=== PATIENT | female | born 1980 | race Caucasian/White ===

== ENCOUNTER 2016-08-09 14:39 | Emergency (ER) | payer BC ==
[2016-08-09 15:03] VITALS: TEMP 98.7
[2016-08-09] MEDS ORDERED: IPRATROPIUM-ALBUTEROL 3 ML NEB INHALATION STA (15:25)
[2016-08-09] MEDS ORDERED: RX INFO: IV CONTRAST WAS GIVEN 1 EACH MISC MISCELLANE PRN (15:26)
--- NOTE | 2016-08-09 15:36 | ED ---
SOB HPI - General Source: patient, RN notes reviewed Mode of arrival: ambulatory Limitations: no limitations - History of Present Illness MD Complaint: shortness of breath <Antoni Bae - Last Filed: 08/09/16 16:57> <Jesse Mina - Last Filed: 08/09/16 19:13> - General Chief Complaint: Shortness of Breath Stated Complaint: Diff Breathing Time Seen by Provider: 08/09/16 15:10 - History of Present Illness Initial Comments: This is a 35-year-old female history of stage IV melanoma who presents with complaints of 3 days of worsening shortness of breath exertional dyspnea. 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 She denies any fevers chills or sweats complains severe dyspnea especially with exertion. She was seen in outpatient clinic was noted to have elevated d-dimer x-ray apparently was negative for acute findings however. The plan had been to schedule patient for ultrasound of her legs she does complain some pain to the left leg she has had phlebitis in the past and believes she has the same today. Of note the patient is a former smoker was quit seven years ago (Antoni Bae) - Related Data Home Medications Medication Instructions Recorded Confirmed Citalopram Hydrobromide [CeleXA] 20 mg PO DAILY 06/09/16 08/09/16 Loratadine [Claritin] 10 mg PO DAILY 06/09/16 08/09/16 Albuterol Sulfate [Proair Hfa] 2 puff INHALATION RT-Q6H PRN 08/09/16 08/09/16 Amoxicillin/Potassium Clav 1 tab PO Q12HR 08/09/16 08/09/16 [Augmentin 875-125 Tablet] Omeprazole [PriLOSEC] 40 mg PO DAILY 08/09/16 08/09/16 Sulfamethox-Tmp 800-160Mg [Bactrim 1 tab PO MOWEFR 08/09/16 08/09/16 DS 800-160 mg] predniSONE 20 mg PO DAILY 08/09/16 08/09/16 Allergies Allergy/AdvReac Type Severity Reaction Status Date / Time fluoxetine [From Prozac] Allergy Rash/Hives Verified 08/09/16 15:17 Review of Systems ROS Other: All systems not noted in ROS Statement are negative. <Antoni Bae - Last Filed: 08/09/16 16:57> ROS Other: All systems not noted in ROS Statement are negative. <Jesse Mina - Last Filed: 08/09/16 19:13> ROS Statement: Those systems with pertinent positive or pertinent negative responses have been documented in the HPI. Past Medical History Past Medical History: Cancer Additional Past Medical History / Comment(s): gestational diabetes x 2 Pregnancies , Umbilical Hernia, stage 4 melanoma History of Any Multi-Drug Resistant Organisms: MRSA Date of last positivie culture/infection: 2007, 2010 MDRO Source:: hernia surgery, breast abscess Past Surgical History: Section, Hernia Repair Additional Past Surgical History / Comment(s): umbilical hernia repair,mesh later removed d/t infection and hernia repaired again at that time. Past Anesthesia/Blood Transfusion Reactions: No Reported Reaction, Motion Sickness Past Psychological History: Depression Smoking Status: Former smoker Past Alcohol Use History: Rare Additional Past Alcohol Use History / Comment(s): quit smoking 2009 , smoked approx 15 yrs, Smoked 1 ppd. Past Drug Use History: None Reported - Past Family History Mother Family Medical History: No Reported History Additional Family Medical History / Comment(s): mother suffers from depression Father History Unknown: Yes Family Medical History: Myocardial Infarction ([place]) Additional Family Medical History / Comment(s): biological father had alcoholism and of a heart attack at age 61 <Antoni Bae - Last Filed: 08/09/16 16:57> General Exam Limitations: no limitations General appearance: alert, in no apparent distress Head exam: Present: atraumatic, normocephalic, normal inspection Eye exam: Present: normal appearance, PERRL, EOMI. Absent: scleral icterus, conjunctival injection, periorbital swelling ENT exam: Present: normal exam, mucous membranes moist Neck exam: Present: normal inspection. Absent: tenderness, meningismus, lymphadenopathy Respiratory exam: Present: decreased breath sounds. Absent: respiratory distress, wheezes, rales, rhonchi, stridor Cardiovascular Exam: Present: regular rate, normal rhythm, normal heart sounds. Absent: systolic murmur, diastolic murmur, rubs, gallop, clicks GI/Abdominal exam: Present: soft, normal bowel sounds, other (Obese abdomen). Absent: distended, tenderness, guarding, rebound, rigid Extremities exam: Present: normal inspection, full ROM, normal capillary refill. 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 Absent: rash <Antoni Bae - Last Filed: 08/09/16 16:57> <Jesse Mina - Last Filed: 08/09/16 19:13> - General Exam Comments Initial Comments: Is a well-developed obese female awake alert oriented 3. (Antoni Bae) Course <Antoni Bae - Last Filed: 08/09/16 16:57> <Jesse Mina - Last Filed: 08/09/16 19:13> Vital Signs 08/09/16 08/09/16 08/09/16 15:00 15:42 15:49 Temperature 98.7 F Pulse Rate 84 82 82 Respiratory 26 H Rate Blood Pressure 159/99 O2 Sat by Pulse 94 L Oximetry 08/09/16 18:36 Temperature Pulse Rate 99 Respiratory 16 Rate Blood Pressure 175/99 O2 Sat by Pulse 92 L Oximetry - Reevaluation(s) Reevaluation #1: 08/09/16 16:57 The patient is in the process of the ultrasound results and CAT scan. The d- dimer was elevated. I did discuss the case with her patient will be endorsed to Dr. Mina who will make the final disposition (Antoni Bae) Medical Decision Making - Lab Data Result diagrams: 08/09/16 15:51 08/09/16 15:51 - EKG Data -: EKG Interpreted by Me EKG shows normal: sinus rhythm (EKG shows sinus rhythm with occasional PVCs rate was 99 appear of 140 QRS of 90 QT/QTC 360/462 no acute changes otherwise.) <Antoni Bae - Last Filed: 08/09/16 16:57> - Lab Data Result diagrams: 08/09/16 15:51 08/09/16 15:51 <Jesse Mina - Last Filed: 08/09/16 19:13> - Medical Decision Making This is a 35-year-old female who presented for shortness of breath. She has a history of malignant melanoma on immunosuppressive therapy. CTA was negative for PE. Dopplers were negative for DVT. The patient was ambulating to and from the bathroom on her own without any significant shortness of breath. She did get some updrafts here and she felt improved. I gave the patient the option to stay in the hospital for further pulmonary evaluation however she stated that she would prefer to go home and follow-up with her doctor. She does have steroids and albuterol at home. I told to continue with these. If she has worsening symptoms she needs return emergency Department. All questions were answered. (Jesse Mina) - Lab Data Lab Results 08/09/16 08/09/16 08/09/16 Range/Units 15:51 15:51 15:51 WBC 11.6 H (3.8-10.6) k/uL RBC 4.24 (3.80-5.40) m/uL Hgb 13.3 (11.4-16.0) gm/dL Hct 39.8 (34.0-46.0) % MCV 93.8 (80.0-100.0) fL MCH 31.4 (25.0-35.0) pg MCHC 33.5 (31.0-37.0) g/dL RDW 16.9 H (11.5-15.5) % Plt Count 154 (150-450) k/uL Neutrophils % 80 % Lymphocytes % 13 % Monocytes % 5 % Eosinophils % 0 % Basophils % 0 % Neutrophils # 9.2 H (1.3-7.7) k/uL Lymphocytes # 1.5 (1.0-4.8) k/uL Monocytes # 0.6 (0-1.0) k/uL Eosinophils # 0.0 (0-0.7) k/uL Basophils # 0.0 (0-0.2) k/uL Anisocytosis Slight PT (9.0-12.0) sec INR (<1.1) APTT (22.0-30.0) sec D-Dimer (<0.60) mg/L FEU Sodium 142 (137-145) mmol/L Potassium 3.9 (3.5-5.1) mmol/L Chloride 105 (98-107) mmol/L Carbon Dioxide 28 (22-30) mmol/L Anion Gap 9 mmol/L BUN 17 (7-17) mg/dL Creatinine 0.60 (0.52-1.04) mg/dL Est GFR (MDRD) Af Amer >60 (>60 ml/min/1.73 sqM) Est GFR (MDRD) Non-Af >60 (>60 ml/min/1.73 sqM) Glucose 135 H (74-99) mg/dL Calcium 9.4 (8.4-10.2) mg/dL Magnesium 1.7 (1.6-2.3) mg/dL Total Bilirubin 0.4 (0.2-1.3) mg/dL AST 16 (14-36) U/L ALT 38 (9-52) U/L Alkaline Phosphatase 65 (38-126) U/L Total Creatine Kinase <20 L (30-135) U/L CK-MB (CK-2) 1.7 (0.0-2.4) ng/mL CK-MB (CK-2) Rel Index 0.0 Troponin I <0.012 (0.000-0.034) ng/mL NT-Pro-B Natriuret Pep pg/mL Total Protein 5.8 L (6.3-8.2) g/dL Albumin 3.6 (3.5-5.0) g/dL 08/09/16 08/09/16 Range/Units 15:51 15:51 WBC (3.8-10.6) k/uL RBC (3.80-5.40) m/uL Hgb (11.4-16.0) gm/dL Hct (34.0-46.0) % MCV (80.0-100.0) fL MCH (25.0-35.0) pg MCHC (31.0-37.0) g/dL RDW (11.5-15.5) % Plt Count (150-450) k/uL Neutrophils % % Lymphocytes % % Monocytes % % Eosinophils % % Basophils % % Neutrophils # (1.3-7.7) k/uL Lymphocytes # (1.0-4.8) k/uL Monocytes # (0-1.0) k/uL Eosinophils # (0-0.7) k/uL Basophils # (0-0.2) k/uL Anisocytosis PT 10.2 (9.0-12.0) sec INR 1.0 (<1.1) APTT 18.9 L (22.0-30.0) sec D-Dimer 1.11 H (<0.60) mg/L FEU Sodium (137-145) mmol/L Potassium (3.5-5.1) mmol/L Chloride (98-107) mmol/L Carbon Dioxide (22-30) mmol/L Anion Gap mmol/L BUN (7-17) mg/dL Creatinine (0.52-1.04) mg/dL Est GFR (MDRD) Af Amer (>60 ml/min/1.73 sqM) Est GFR (MDRD) Non-Af (>60 ml/min/1.73 sqM) Glucose (74-99) mg/dL Calcium (8.4-10.2) mg/dL Magnesium (1.6-2.3) mg/dL Total Bilirubin (0.2-1.3) mg/dL AST (14-36) U/L ALT (9-52) U/L Alkaline Phosphatase (38-126) U/L Total Creatine Kinase (30-135) U/L CK-MB (CK-2) (0.0-2.4) ng/mL CK-MB (CK-2) Rel Index Troponin I (0.000-0.034) ng/mL NT-Pro-B Natriuret Pep 91 pg/mL Total Protein (6.3-8.2) g/dL Albumin (3.5-5.0) g/dL Disposition <Antoni Bae - Last Filed: 08/09/16 16:57> <Jesse Mina - Last Filed: 08/09/16 19:13> Clinical Impression: Shortness of breath Disposition: HOME SELF-CARE Condition: Stable Instructions: Asthma (ED) Referrals: Mike Kahn MD [Primary Care Provider] - 1-2 days
[2016-08-09 16:08] LABS: Anisocytosis Slight; Basophils % (A) 0 %; CH 31.7; Eosinophils % (A) 0 %; HCT 39.8 % (34.0-46.0); HDW 3.02; HGB 13.3 gm/dL (11.4-16.0); Luc # (Auto) 0.16; Luc % (Auto) 1; Lymphocytes # (A) 1.5 k/uL (1.0-4.8); Lymphocytes % (A) 13 %; MCH 31.4 pg (25.0-35.0); MCHC 33.5 g/dL (31.0-37.0); MCV 93.8 fL (80.0-100.0); Mean Platelet Volume 7.2; Monocytes # (A) 0.6 k/uL (0-1.0); Monocytes % (A) 5 %; Neutrophils # (A) 9.2 k/uL (1.3-7.7); Neutrophils % (A) 80 %; RBC 4.24 m/uL (3.80-5.40); RDW 16.9 % (11.5-15.5); WBC 11.6 k/uL (3.8-10.6); WBC (Perox) 11.48
[2016-08-09 16:25] LABS: ALT 38 U/L (9-52); AST 16 U/L (14-36); Alkaline Phosphatase 65 U/L (38-126); Anion Gap 9 mmol/L; Blood Urea Nitrogen 17 mg/dL (7-17); Calcium 9.4 mg/dL (8.4-10.2); Carbon Dioxide 28 mmol/L (22-30); Chloride 105 mmol/L (98-107); Glucose 135 mg/dL (74-99); Magnesium 1.7 mg/dL (1.6-2.3); Non-African American GFR(MDRD) >60 (>60 ml/min/1.73 sqM); Potassium 3.9 mmol/L (3.5-5.1); Sodium 142 mmol/L (137-145); Total Bilirubin 0.4 mg/dL (0.2-1.3); Total Protein 5.8 g/dL (6.3-8.2)
[2016-08-09 16:30] LABS: Prothrombin Time 10.2 sec (9.0-12.0)
[2016-08-09 16:31] LABS: Partial Thromboplastin Time 18.9 sec (22.0-30.0)
[2016-08-09 16:38] LABS: Creatine Kinase <20 U/L (30-135)
[2016-08-09 16:50] LABS: Creatine Kinase MB 1.7 ng/mL (0.0-2.4); Troponin I <0.012 ng/mL (0.000-0.034)
--- NOTE | 2016-08-09 17:26 | US ---
EXAMINATION TYPE: US venous doppler duplex LE DATE OF EXAM: 08/09/2016 5:09 PM COMPARISON: NONE CLINICAL HISTORY: Pain. SIDE PERFORMED: Bilateral TECHNIQUE: The lower extremity deep venous system is examined utilizing real time linear array sonog rakel with graded compression, doppler sonography and color-flow sonography. VESSELS IMAGED: External Iliac Vein (EIV), not well seen Common Femoral Vein Deep Femoral Vein Greater Saphenous Vein * Femoral Vein Popliteal Vein Small Saphenous Vein * Proximal Calf Veins-not visualized (* superficial vessels) Patient 5'6", 397lbs. Exam very limited, technically difficult. Right Leg: Negative for DVT Left Leg: Negative from CFV to distal FV. Unable to visualized popliteal vein, it is unclear whet her this is due to a clot or compression of vein due to swelling or some other etiology. IMPRESSION: Exam was somewhat limited. No evidence of deep venous thrombosis. We did not demonstrate left side calf veins due to the edema.
--- NOTE | 2016-08-09 18:08 | CT ---
EXAMINATION TYPE: CT angio chest DATE OF EXAM: 08/09/2016 5:47 PM COMPARISON: NONE HISTORY: Shortness of breath. History of melanoma CT DLP: 980.9 mGycm Automated exposure control for dose reduction was used. CONTRAST: CTA scan of the thorax is performed with IV Contrast, patient injected with 100 mL of Omnipaque 350, pulmonary embolism protocol. There are 3-D post processed images.. FINDINGS: The lungs are clear of consolidation. There is no evidence of a pulmonary mass. There is no pleural e ffusion. Thoracic aorta appears normal. There is no evidence of thoracic aortic aneurysm or dissectio n. There is suboptimal contrast density in the pulmonary arteries. I see no definite filling defects. There is no mediastinal adenopathy. There are no hilar masses. There is no pericardial effusion. Hea rt is probably enlarged. The bony thorax is intact. IMPRESSION: CARDIOMEGALY. SUBOPTIMAL EXAM. NO EVIDENCE OF PULMONARY EMBOLISM.
[2016-08-09 18:37] VITALS: BP 175/99; PULSE 99; RESP 16
== END 2016-08-09 18:47 | disposition home or self-care (01) ==
LOC: EC 14:39
DX: R06.02 Shortness of breath (principal); R79.1 Abnormal coagulation profile; Z87.891 Personal history of nicotine dependence; Z79.52 Long term (current) use of systemic steroids; Z79.899 Other long term (current) drug therapy; Z88.8 Allergy status to other drugs, medicaments and biological substances; Z85.820 Personal history of malignant melanoma of skin
CPT/HCPCS: 99285; 36415; 94640; 93005; 85379; 83880; 80053; 82550; 82553; 83735; 84484; 85025; 85610; 85730; 87040; 93970; 71275; Q9967

== ENCOUNTER 2016-09-13 13:12 | Inpatient (IN) | payer BC ==
[2016-09-13] MEDS ORDERED: SODIUM CHLORIDE 0.9% 500 ML IV STA (14:35)
[2016-09-13] MEDS ORDERED: ACETAMINOPHEN TAB 325 MG TAB PO STA (14:35)
[2016-09-13] MEDS ORDERED: SODIUM CHLORIDE 0.9% 1,000 ML IV STA (14:35)
[2016-09-13] MEDS ORDERED: IV VANCOMYCIN PER PHARMACY 1 EACH MISC MISCELLANE PRN (14:46)
[2016-09-13] MEDS ORDERED: HYDROmorphone 1 MG/ML 1 ML SYRINGE IV PRN (14:48)
[2016-09-13] MEDS ORDERED: NALOXONE 0.4 MG/ML 1 ML VIAL IV PRN (14:48)
[2016-09-13] MEDS ORDERED: ONDANSETRON 4 MG/2 ML VIAL IVP PRN (14:48)
--- NOTE | 2016-09-13 14:48 | ED ---
General Adult HPI - General Chief complaint: Extremity Injury, Lower Stated complaint: Leg Pain Source: patient, RN notes reviewed, old records reviewed Mode of arrival: ambulatory Limitations: no limitations - History of Present Illness Initial comments: Chief complaint and history of present illness 35-year-old female who is currently being treated for a melanotic melanoma. Patient had had years ago cellulitis her left leg recurrent. She's had 2 episodes of MRSA type infections. She's been on Bactrim prophylactically up to several weeks ago when she developed cellulitis of her lower extremities. Her physician put her on Keflex for the past 10 days. Now both lower extremities are red and warm and tender with cellulitis. Patient was sent emergency room for IV antibiotics and admission. - Related Data Home Medications Medication Instructions Recorded Confirmed Citalopram Hydrobromide [CeleXA] 20 mg PO DAILY 06/09/16 09/13/16 Albuterol Sulfate [Proair Hfa] 2 puff INHALATION RT-Q6H PRN 08/09/16 09/13/16 Ibuprofen [Motrin] 600 mg PO Q6HR PRN 09/13/16 09/13/16 Allergies Allergy/AdvReac Type Severity Reaction Status Date / Time fluoxetine [From Prozac] Allergy Rash/Hives Verified 09/13/16 14:01 Review of Systems ROS Statement: Those systems with pertinent positive or pertinent negative responses have been documented in the HPI. Review of systems no visual acuity changes no headache no stiff neck no sore throat no chest pain shortness of breath no GI/ problems no neuro deficits. The patient does have cellulitis both lower extremities. With past history of MRSA. Patient failed outpatient on Keflex. All systems are reviewed. Past medical problems a melanotic melanoma. Patient also had gestational diabetes . Surgeries 1 . She's had abdominal umbilical hernia repair with mesh mesh got infected positive for MRSA. It was re-paired with another mesh currently no problems. Family history no cancers. Patient has hives with fluoxetine. Quit smoking 7 years ago denies alcohol use. ROS Other: All systems not noted in ROS Statement are negative. Past Medical History Past Medical History: Cancer Additional Past Medical History / Comment(s): gestational diabetes x 2 Pregnancies , Umbilical Hernia, stage 4 melanoma History of Any Multi-Drug Resistant Organisms: MRSA Date of last positivie culture/infection: 2007, 2010 MDRO Source:: hernia surgery, breast abscess Past Surgical History: Section, Hernia Repair Additional Past Surgical History / Comment(s): umbilical hernia repair,mesh later removed d/t infection and hernia repaired again at that time. Past Anesthesia/Blood Transfusion Reactions: No Reported Reaction, Motion Sickness Past Psychological History: Depression Smoking Status: Former smoker Past Alcohol Use History: Rare Past Drug Use History: None Reported - Past Family History Mother Family Medical History: No Reported History Additional Family Medical History / Comment(s): mother suffers from depression Father History Unknown: Yes Family Medical History: Myocardial Infarction ([place]) Additional Family Medical History / Comment(s): biological father had alcoholism and of a heart attack at age 61 General Exam - General Exam Comments Initial Comments: General: The patient is awake and alert, carried because of cellulitis to both lower extremities from feet to her knees. Vital signs temperature 99.6 pulse 107 respiratory rate 17 pulse ox 94% on room air blood pressure 131/90. Eye: Pupils are equal, round and reactive to light, extra-ocular movements are intact ; there is normal conjunctiva bilaterally. No signs of icterus. Ears, nose, mouth and throat: There are moist mucous membranes and no oral lesions. Neck: The neck is supple, there is no tenderness , no anterior cervical lymphadenopathy. Cardiovascular: Tachycardic heart rate, 106.. No murmur, rub or gallop is appreciated. Respiratory: Lungs are clear to auscultation, respirations are non-labored, breath sounds are equal. No wheezes, stridor, rales, or rhonchi. Gastrointestinal: Soft, non-distended, non-tender abdomen without masses or organomegaly noted. There is no rebound or guarding present. No CVA tenderness. Bowel sounds are unremarkable. Morbidly obese at 430 pounds. Back: There is no tenderness to palpation in the midline. There is no obvious deformity. No rashes noted. Musculoskeletal: Cellulitis both lower extremities. Neurological: CN II-XII intact, There are no obvious motor or sensory deficits. Coordination appears grossly intact. Speech is normal. No neuro deficits. Skin: Cellulitis both lower extremities. Limitations: no limitations Course Vital Signs 09/13/16 13:26 Temperature 99.6 F Pulse Rate 107 H Respiratory 17 Rate Blood Pressure 131/90 O2 Sat by Pulse 94 L Oximetry Medical Decision Making - Medical Decision Making She will be started on antibiotics. Admitted with diagnosis of cellulitis to both lower extremities. Disposition Clinical Impression: Cellulitis of both lower extremities Disposition: ADMITTED IP TO THIS HOSP Condition: Serious Referrals: Mike Kahn MD [Primary Care Provider] - 1-2 days
[2016-09-13] MEDS ORDERED: VANCOMYCIN 2,250 MG in SODIUM CHLORIDE 0.9% 500 ML IVPB STA (14:53)
[2016-09-13] MEDS ORDERED: ALBUTEROL NEBULIZED 2.5 MG/3 ML INHALATION PRN (14:54)
[2016-09-13] MEDS ORDERED: IBUPROFEN 600 MG TAB PO PRN (14:54)
[2016-09-13 15:03] LABS: Anisocytosis Slight; Basophils % (A) 1 %; CH 31.5; CHCM 33.6; Eosinophils # (A) 0.1 k/uL (0-0.7); Eosinophils % (A) 2 %; HGB 12.6 gm/dL (11.4-16.0); Hypochromasia Slight; Luc # (Auto) 0.15; Luc % (Auto) 2; Lymphocytes % (A) 14 %; MCV 94.2 fL (80.0-100.0); Mean Platelet Volume 7.8; Monocytes # (A) 0.5 k/uL (0-1.0); Monocytes % (A) 7 %; Neutrophils # (A) 5.5 k/uL (1.3-7.7); Neutrophils % (A) 75 %; Poikilocytosis Slight; RBC 3.92 m/uL (3.80-5.40); RDW 16.1 % (11.5-15.5); WBC 7.3 k/uL (3.8-10.6); WBC (Perox) 7.47
[2016-09-13 15:04] LABS: Appearance,Urine Cloudy (Clear); Bacteria,Urine Rare /hpf; Bilirubin,Urine Negative (Negative); Glucose,Urine (UA) Negative (Negative); Ketones,Urine Negative (Negative); Leukocyte Esterase,Urine Large (Negative); Mucus,Urine Occasional /hpf; Nitrite,Urine Negative (Negative); PH, Urine 6.5 (5.0-8.0); Particle Count 6908; Protein,Urine Negative (Negative); RBC,Urine 4 /hpf (0-5); Specific Gravity,Urine 1.014 (1.001-1.035); Squamous Epithelial Cell,Urine 12 /hpf (0-4); UA Billing (MACRO vs. MICRO) MICRO; Urobilinogen,Urine <2.0 mg/dL (<2.0); WBC,Urine 15 /hpf (0-5)
[2016-09-13] MEDS: SODIUM CHLORIDE 0.9% 1,000 ML IV SCH (15:04)
[2016-09-13 15:14] LABS: ALT 33 U/L (9-52); AST 31 U/L (14-36); Alkaline Phosphatase 54 U/L (38-126); Anion Gap 9 mmol/L; Blood Urea Nitrogen 6 mg/dL (7-17); Calcium 8.8 mg/dL (8.4-10.2); Carbon Dioxide 26 mmol/L (22-30); Chloride 105 mmol/L (98-107); Glucose 174 mg/dL (74-99); Non-African American GFR(MDRD) >60 (>60 ml/min/1.73 sqM); Potassium 4.6 mmol/L (3.5-5.1); Sodium 140 mmol/L (137-145); Total Bilirubin 0.6 mg/dL (0.2-1.3); Total Protein 6.1 g/dL (6.3-8.2)
--- NOTE | 2016-09-13 15:34 | XR ---
EXAMINATION TYPE: XR chest 2V DATE OF EXAM: 09/13/2016 COMPARISON: Prior chest x-ray 06/09/2016 HISTORY: Shortness of breath TECHNIQUE: Frontal and lateral views of the chest are obtained. FINDINGS: There is no focal air space opacity, pleural effusion, or pneumothorax seen. The cardiac silhouette size is stable and enlarged. The osseous structures are intact. IMPRESSION: No acute cardiopulmonary process.
--- NOTE | 2016-09-13 21:45 | P.HPIM ---
History of Present Illness H&P Date: 09/13/16 Chief Complaint: Right leg redness This is a very pleasant 35-year-old patient of Dr. Franco. Patient was diagnosed with melanotic melanoma by Dr. Herzog out of [place]. Earlier part of this year. Patient has received 2 cycles of immunotherapy. She had some resultant colitis from immunotherapy. Patient on the right leg for about 10 days noticed to have increasing redness and swelling took a course of Keflex with not much help getting painful some chills appetite is maintained is not sure if she had any fever.. Patient had MRSA in the left leg previously past patient other chronic stable medical conditions include depression and gastritis. Patient's significant other is in the room with her Symptoms significant past medical history: Melanotic melanoma, left flexor mellitus, kidney stones, umbilical hernia, gastritis, depression. Review of Systems GEN.: Tired, chills EYES: None HEENT: None NECK: None RESPIRATORY: None CARDIOVASCULAR: None GASTROINTESTINAL: None GENITOURINARY: None MUSCULOSKELETAL: None LYMPHATICS: None HEMATOLOGICAL: None PSYCHIATRY: Depression NEUROLOGICAL: None DERMATOLOGICAL: As above Past Medical History Past Medical History: Cancer Additional Past Medical History / Comment(s): gestational diabetes x 2 Pregnancies ,kidney stone. Umbilical Hernia, stage 4 amelantic melanoma, in past was tx for lt leg cellilitis. gastritis(per colonosocpy), colitis History of Any Multi-Drug Resistant Organisms: MRSA Date of last positivie culture/infection: 2010 MDRO Source:: hernia surgery, breast abscess Past Surgical History: Section, Hernia Repair Additional Past Surgical History / Comment(s): umbilical hernia repair,mesh later removed d/t infection and hernia repaired again at that time. colonoscopy/ egd Past Anesthesia/Blood Transfusion Reactions: Motion Sickness, Postoperative Nausea & Vomiting (PONV) Smoking Status: Former smoker Additional History: Lives with dad, no smoking, no alcohol. Not employed - Past Family History Mother Family Medical History: No Reported History Additional Family Medical History / Comment(s): mother suffers from depression Father History Unknown: Yes Family Medical History: Myocardial Infarction ([place]) Additional Family Medical History / Comment(s): biological father had alcoholism and of a heart attack at age 61 Medications and Allergies Home Medications Medication Instructions Recorded Confirmed Type Citalopram Hydrobromide [CeleXA] 20 mg PO DAILY 06/09/16 09/13/16 History Albuterol Sulfate [Proair Hfa] 2 puff INHALATION RT-Q6H PRN 08/09/16 09/13/16 History Ibuprofen [Motrin] 600 mg PO Q6HR PRN 09/13/16 09/13/16 History Allergies Allergy/AdvReac Type Severity Reaction Status Date / Time fluoxetine [From Prozac] Allergy Rash/Hives Verified 09/13/16 14:01 Physical Exam VITAL SIGNS: 99.6, 107, 17, 131/90, 94% room air GENERAL: BMI 69.9, well built, laying in bed, comfortable. EYES: Pupils equal. Conjunctiva normal. HEENT: External appearance of nose and ears normal, oral cavity grossly normal. NECK: JVD not raised; masses not palpable. HEART: First and second heart sounds are normal; no edema. LUNGS: Respiratory rate normal; clear to auscultation. ABDOMEN: Soft, nontender, liver spleen not palpable, no masses palpable. LYMPHATICS: No lymph nodes palpable in the axilla and neck. PSYCH: Alert and oriented x3; mood and affect normal. NEUROLOGICAL: Cranial nerves grossly intact; no facial asymmetry, power and sensation grossly intact. EXTREMITY:/Dermatological-this is redness of both the lower extremity below the knee especially of the right leg, with tenderness swelling shiny skin, with increased local temperature Results CBC & Chem 7: 09/13/16 14:06 09/13/16 14:06 Labs: White count 7.3, hemoglobin 12.6, potassium 4.6, UA-contaminated with positive epithelial cells Assessment and Plan Plan: Assessment: -Acute right lower extremity cellulitis, in a patient is immunosuppressed, getting immunotherapy, with a prior history of MRSA having failed outpatient treatment with Keflex -Morbid obesity BMI 69.9 -Amelanotic melanoma stage IV being treated at [place] per Dr. Herzog with immunotherapy -Hyper glycemia -Depression not otherwise specified Plan: Patient started on IV vancomycin. Will use Silvadene cream with Kerlix and Julio César wrap. Home medications be resumed. Care was discussed with the patient and . Questions were answered.
[2016-09-13] MEDS: VANCOMYCIN 2,000 MG in SODIUM CHLORIDE 0.9% 500 ML IVPB SCH (23:18)
[2016-09-14] MEDS: SODIUM CHLORIDE 0.9% 1,000 ML IV SCH ×2 (05:21→16:43)
[2016-09-14] MEDS: ENOXAPARIN 40 MG/0.4 ML SYRINGE SQ SCH (08:04)
[2016-09-14] MEDS: PANTOPRAZOLE 40 MG/10 ML VIAL IV SCH (08:04)
[2016-09-14] MEDS: VANCOMYCIN 2,000 MG in SODIUM CHLORIDE 0.9% 500 ML IVPB SCH ×3 (08:04→23:26)
[2016-09-14] MEDS: CITALOPRAM HYDROBROMIDE 20 MG TAB PO SCH (08:04)
[2016-09-14 08:40] LABS: Anisocytosis Slight; Basophils % (A) 0 %; CH 31.2; CHCM 33.4; Eosinophils # (A) 0.2 k/uL (0-0.7); Eosinophils % (A) 3 %; HDW 3.98; HGB 11.6 gm/dL (11.4-16.0); Hypochromasia Slight; Luc % (Auto) 2; Lymphocytes # (A) 1.2 k/uL (1.0-4.8); Lymphocytes % (A) 18 %; MCH 32.1 pg (25.0-35.0); MCHC 34.1 g/dL (31.0-37.0); Mean Platelet Volume 7.6; Monocytes # (A) 0.5 k/uL (0-1.0); Monocytes % (A) 7 %; Neutrophils # (A) 4.5 k/uL (1.3-7.7); Neutrophils % (A) 70 %; Poikilocytosis Slight; RBC 3.62 m/uL (3.80-5.40); RDW 16.1 % (11.5-15.5); WBC 6.4 k/uL (3.8-10.6); WBC (Perox) 6.68
[2016-09-14 08:47] LABS: Anion Gap 5 mmol/L; Blood Urea Nitrogen 7 mg/dL (7-17); Calcium 8.3 mg/dL (8.4-10.2); Carbon Dioxide 26 mmol/L (22-30); Chloride 107 mmol/L (98-107); Glucose 226 mg/dL (74-99); Non-African American GFR(MDRD) >60 (>60 ml/min/1.73 sqM); Sodium 138 mmol/L (137-145)
[2016-09-14 15:50] VITALS: RESP 16
--- NOTE | 2016-09-14 17:14 | P.PN ---
<Abby Grant - Last Filed: 09/14/16 17:03> Progress Note - Text DATE OF SERVICE: 09/14/2016 PRESENTING COMPLAINT: Bilateral Lower extremity redness and swelling. INTERVAL HISTORY: 35-year-old female with acute right lower extremity cellulitis. Lying in bed, bilateral lower extremities Julio César wrapped with current and Kerlix, left lower extremity not fully dressed, states it's improved, less tender and less red. Tolerating her diet, ambulatory within the room. REVIEW OF SYSTEMS: Done for constitutional ,cardiovascular, GI, pulmonary with relevant findings as above. CURRENT MEDICATIONS Celexa, Lovenox, Dilaudid, Motrin, vancomycin, Protonix, Silvadene cream. PHYSICAL EXAM VITAL SIGNS: Temperature 99.0, heart rate 99, respiratory rate 20, blood pressure 126/90, oxygen saturation 94% on room air. GENERAL APPEARANCE: Lying in bed, not in distress. EYES: Pupils equal. Conjunctiva normal. NECK: JVD not raised. Mass not palpable. RESPIRATORY: Respiratory effort normal. Lungs clear to auscultation. CARDIOVASCULAR: First and second sounds normal. No edema. ABDOMEN: Soft. Liver and spleen not palpable. No tenderness. No mass palpable. PSYCHIATRY: Alert and oriented x3. Mood and affect normal. INTEGUMENT: Bilateral lower extremities Julio César wrapped and with Kerlix, left lower extremity current weight unwrapped red tender hot swollen, right lower extremity wrapped in Kerlix with an Julio César wrap foot remains red, tenderness palpation. INVESTIGATIONS: LABS: White blood cell count 6.4, hemoglobin 11.6, platelet count 223, sodium 138, potassium 4.0, ASSESSMENT: -Acute right lower extremity cellulitis, in a patient is immunosuppressed, getting immunotherapy, with a prior history of MRSA having failed outpatient treatment with Keflex improving -Morbid obesity BMI 69.9 -Amelanotic melanoma stage IV being treated at [place] per Dr. Herzog with immunotherapy -Hyperglycemia -Depression not otherwise specified PLAN: Continue IV vancomycin and Silvadene cream with Kerlix and Julio César wraps. Plan of care discussed with the patient she is agreeable. PAINTING DEPARTMENT SUPERVISOR statement: Patient was seen and examined by nurse practitioner Abby Grant and all elements of the case discussed with attending Dr. Acosta <Eric Acosta - Last Filed: 09/14/16 17:21> Progress Note - Text Attending note. Date of service-09/14/2016 This patient was seen and examined by me . I reviewed the note of my nurse practitioner, Ms. Grant. Discussed with her, additional findings as below. This very pleasant patient presents with lower extremity cellulitis. On IV vancomycin and Silvadene cream Julio César wraps. Some improvement in the redness. On examination: Afebrile, redness of lower extremity more so on the right leg, with some edema Investigations: White count 6.4 Assessment and plan: Acute right lower extremity cellulitis, with associated venous insufficiency. Continue with topical Silvadene and IV vancomycin. Care was discussed the patient has been at the bedside. Follow with Julio César wraps
[2016-09-14] MEDS ORDERED: VANCOMYCIN TROUGH DUE 1 EACH MISC MISCELLANE ONE (23:00)
[2016-09-15] MEDS: SODIUM CHLORIDE 0.9% 1,000 ML IV SCH ×2 (04:28→16:54)
[2016-09-15 08:03] LABS: Basophils % (A) 0 %; CH 31.2; CHCM 33.1; Eosinophils # (A) 0.2 k/uL (0-0.7); Eosinophils % (A) 3 %; HCT 35.2 % (34.0-46.0); HDW 4.04; HGB 11.8 gm/dL (11.4-16.0); Hypochromasia Slight; Luc # (Auto) 0.12; Luc % (Auto) 2; Lymphocytes # (A) 0.9 k/uL (1.0-4.8); Lymphocytes % (A) 15 %; MCH 31.8 pg (25.0-35.0); MCHC 33.6 g/dL (31.0-37.0); MCV 94.8 fL (80.0-100.0); Mean Platelet Volume 7.6; Monocytes # (A) 0.4 k/uL (0-1.0); Monocytes % (A) 6 %; Neutrophils # (A) 4.4 k/uL (1.3-7.7); Neutrophils % (A) 74 %; Poikilocytosis Moderate; RBC 3.72 m/uL (3.80-5.40); RDW 15.8 % (11.5-15.5); WBC (Perox) 6.36
[2016-09-15 08:22] LABS: Anion Gap 6 mmol/L; Blood Urea Nitrogen 6 mg/dL (7-17); Calcium 7.9 mg/dL (8.4-10.2); Carbon Dioxide 24 mmol/L (22-30); Chloride 109 mmol/L (98-107); Glucose 136 mg/dL (74-99); Non-African American GFR(MDRD) >60 (>60 ml/min/1.73 sqM); Potassium 4.3 mmol/L (3.5-5.1); Sodium 139 mmol/L (137-145)
[2016-09-15] MEDS: PANTOPRAZOLE 40 MG/10 ML VIAL IV SCH (08:53)
[2016-09-15] MEDS: CITALOPRAM HYDROBROMIDE 20 MG TAB PO SCH (08:53)
[2016-09-15] MEDS: VANCOMYCIN 2,000 MG in SODIUM CHLORIDE 0.9% 500 ML IVPB SCH ×2 (08:53→16:54)
[2016-09-15] MEDS: ENOXAPARIN 40 MG/0.4 ML SYRINGE SQ SCH (08:53)
--- NOTE | 2016-09-15 17:46 | P.PN ---
<Abby Grant - Last Filed: 09/15/16 17:35> Progress Note - Text DATE OF SERVICE: 09/15/2016 PRESENTING COMPLAINT: Right leg redness INTERVAL HISTORY: 65-year-old female history of melanotic melanoma, received immunotherapy, presented to the emergency department with right leg redness and swelling. Failed outpatient therapy. 09/15/2016: Patient's lying in the bed, no acute distress, right leg appears improved, patient states feels better. Patient ambulatory within the room, tolerating her diet about 75% each meal. REVIEW OF SYSTEMS: Done for constitutional ,cardiovascular, GI, pulmonary with relevant findings as above. CURRENT MEDICATIONS Albuterol, Celexa, Lovenox, Dilaudid, Motrin, Protonix, Silvadene cream, vancomycin 2000 mg IV PHYSICAL EXAM VITAL SIGNS: Temperature 98.0, pulse 99, blood pressure 139/69, oxygen saturation 95% on room air respirations 16. GENERAL APPEARANCE: Obese, Lying in bed, not in distress. EYES: Pupils equal. Conjunctiva normal. NECK: JVD not raised. Mass not palpable. RESPIRATORY: Respiratory effort normal. Lungs diminished to auscultation. CARDIOVASCULAR: First and second sounds normal. No edema. ABDOMEN: Soft. Liver and spleen not palpable. No tenderness. No mass palpable. PSYCHIATRY: Alert and oriented x3. Mood and affect normal. INTEGUMENT: Right leg warm red swollen, no breaks in the skin tender to palpation, overall appearance of right leg improved from yesterday. dressing off for exam. Left leg warm red swollen,breaks the skin noted tender to palpation. INVESTIGATIONS: White blood cell count 6.0, hemoglobin 11.8, platelet count 224, sodium 139, potassium 4.3, chloride 109, BUN 6, creatinine 0.50. ASSESSMENT: -Acute right lower extremity cellulitis, in a patient is immunosuppressed, getting immunotherapy, with a prior history of MRSA having failed outpatient treatment with Keflex -Morbid obesity BMI 69.9 -Amelanotic melanoma stage IV being treated at [place] per Dr. Herzog with immunotherapy -Hyperglycemia ,improving -Depression not otherwise specified PLAN: We'll continue vancomycin and dressings with Silvadene cream. Patient encouraged to ambulate, plan of care was discussed with the patient at the bedside, all questions answered. We'll continue to follow closely. PARKING METER COLLECTOR statement: Patient was seen and examined by nurse practitioner Abby Grant and all elements of the case discussed with attending Dr. Acosta <Eric Acosta - Last Filed: 09/15/16 19:57> Progress Note - Text Attending note. Date of service-09/15/2016 This patient was seen and examined by me . I reviewed the note of my nurse practitioner, Ms. Grant. Discussed with her, additional findings as below. Feels better. Redness swelling slowly going down. No fever or chills. Tolerating a diet. On examination: Decrease redness in both the legs patient to the right leg, decreased tenderness Investigations: Normal white count, afebrile Assessment and plan: Acute right lower extremity cellulitis, and a immunosuppressed patient, clinically improving. Discussed with the patient hopefully can discharge in 24 hours
[2016-09-16] MEDS: VANCOMYCIN 2,000 MG in SODIUM CHLORIDE 0.9% 500 ML IVPB SCH ×2 (00:15→07:53)
[2016-09-16] MEDS: SODIUM CHLORIDE 0.9% 1,000 ML IV SCH ×2 (05:44→13:57)
[2016-09-16] MEDS ORDERED: PANTOPRAZOLE 40 MG TABLET PO SCH (07:30)
[2016-09-16] MEDS: ENOXAPARIN 40 MG/0.4 ML SYRINGE SQ SCH (07:53)
[2016-09-16] MEDS: CITALOPRAM HYDROBROMIDE 20 MG TAB PO SCH (07:53)
[2016-09-16] MEDS ORDERED: SILVER sulfADIAZINE Cream 400 GM 1 APPLIC APPLIC TOPICAL SCH (09:00)
[2016-09-16 16:33] VITALS: BP 125/73; PULSE 103; TEMP 98.3
--- NOTE | 2016-09-16 19:31 | P.DS ---
Providers Date of admission: 09/13/16 14:50 Expected date of discharge: 09/16/16 Attending physician: Eric Acosta Primary care physician: Milton Kahn [facility] Course: FINAL DIAGNOSES: -Acute right lower extremity cellulitis, in a patient is immunosuppressed, getting immunotherapy -Morbid obesity BMI 69.9 -Amelanotic melanoma stage IV being treated at [place] per Dr. Herzog with immunotherapy -Hyperglycemia -Depression not otherwise specified HOSPTIAL COURSE: 36-year-old female whos immunosuppressed, receiving treatment for amelanotic melanoma stage IV, failed outpatient treatment with Keflex and presented here with right lower extremity cellulitis. Patient was admitted, started on vancomycin IV, right lower extremity dressed with Silvadene cream, Kerlix and Julio César wraps. Right lower extremity improved greatly with these interventions, patient remained afebrile throughout the course of her stay, white count was normal. Patient is ambulatory within the room and in the agrawal, right lower extremity skin improved from day of admission, pain has been well controlled, tolerating her diet, and as such patient is ready for discharge. PHYSICAL EXAM: CARDIOVASCULAR: First and second sounds noted no edema RESPIRATORY: Respiratory effort normal, lungs diminished auscultation. GI:Abdomen obese soft nontender to palpation liver and spleen not palpable INTEGUMENT: Right leg warm less swollen,breaks in the skin, slightly tender to palpation, overall appearance of the right leg has improved, dressing off for exam. Left leg warm red swollen no breaks in the skin, tender to palpation. Patient was seen and examined by nurse practitioner Abby Grant in all elements of the case discussed with attending Dr. Acosta DISPOSITION: Home with self-care, dressing changes to the right lower extremity with Silvadene kerlix and Julio César wraps. Patient should follow-up with Dr. Milton Kahn in 1-2 days, and Dr. Herzog of [facility] in a week. Patient Condition at Discharge: Stable Plan - Discharge Summary New Discharge Prescriptions: New SILVER sulfADIAZINE Cream [Silvadene 1% Cream] 1 applic TOPICAL BID #1 dose Sulfamethox-Tmp 800-160Mg [Bactrim DS 800-160 mg] 1 tab PO Q12HR #10 tab Continue Citalopram Hydrobromide [CeleXA] 20 mg PO DAILY Albuterol Sulfate [Proair Hfa] 2 puff INHALATION RT-Q6H PRN PRN Reason: Shortness Of Breath Ibuprofen [Motrin] 600 mg PO Q6HR PRN PRN Reason: LEG PAIN Discharge Medication List Citalopram Hydrobromide [CeleXA] 20 mg PO DAILY 06/09/16 [History] Albuterol Sulfate [Proair Hfa] 2 puff INHALATION RT-Q6H PRN 08/09/16 [History] Ibuprofen [Motrin] 600 mg PO Q6HR PRN 09/13/16 [History] SILVER sulfADIAZINE Cream [Silvadene 1% Cream] 1 applic TOPICAL BID #1 dose [Rx] Sulfamethox-Tmp 800-160Mg [Bactrim DS 800-160 mg] 1 tab PO Q12HR #10 tab [Rx] Follow up Appointment(s)/Referral(s): dr monse [Other] - 1 Week (Follow up with Dr Herzog at [facility]) Mike Kahn MD [Primary Care Provider] - 1-2 days Ambulatory/Diagnostic Orders: Basic Metabolic Panel [LAB.AMB] Location: Determined By Patient Complete Blood Count w/diff [LAB.AMB] Location: Determined By Patient Activity/Diet/Wound Care/Special Instructions: Apply sivadene cream and kerlix wraps to BL lower extremiites along with julio césar wraps daily OK for patient to take the cream from here. Follow up with Dr Herzog at [facility] Discharge Disposition: HOME SELF-CARE
== END 2016-09-16 16:36 | disposition home or self-care (01) | DRG 603 ==
LOC: EC 13:12 → 4MS4W 14:50
PROVIDERS: ADMIT Hospitalist; ATTEND Hospitalist
DX: L03.115 Cellulitis of right lower limb (principal); C43.9 Malignant melanoma of skin, unspecified; E66.01 Morbid (severe) obesity due to excess calories; R00.0 Tachycardia, unspecified; R73.9 Hyperglycemia, unspecified; K29.70 Gastritis, unspecified, without bleeding; I87.2 Venous insufficiency (chronic) (peripheral); F32.9 Major depressive disorder, single episode, unspecified; Z79.899 Other long term (current) drug therapy; Z81.8 Family history of other mental and behavioral disorders; Z82.49 Family history of ischemic heart disease and other diseases of the circulatory system; Z86.14 Personal history of Methicillin resistant Staphylococcus aureus infection; Z87.891 Personal history of nicotine dependence; Z86.32 Personal history of gestational diabetes; Z87.442 Personal history of urinary calculi; Z88.8 Allergy status to other drugs, medicaments and biological substances; Z92.25 Personal history of immunosuppression therapy; Z86.19 Personal history of other infectious and parasitic diseases; Z87.19 Personal history of other diseases of the digestive system; Z81.1 Family history of alcohol abuse and dependence; Z79.2 Long term (current) use of antibiotics; Z79.1 Long term (current) use of non-steroidal anti-inflammatories (NSAID)
CPT/HCPCS: 36415; 71020; 80048; 80053; 80202; 81001; 85025; 87040; 87086

== ENCOUNTER 2017-01-31 14:43 | Emergency (ER) | payer BC ==
[2017-01-31 15:01] VITALS: RESP 18
--- NOTE | 2017-01-31 15:41 | ED ---
General Adult HPI - General Chief complaint: Abdominal Pain Stated complaint: RT FLANK PAIN Time Seen by Provider: 01/31/17 14:55 Source: patient, RN notes reviewed Mode of arrival: ambulatory Limitations: no limitations - History of Present Illness Initial comments: This is a 36-year-old female with a past medical history significant for stage IV melanoma. Patient comes in today stating that anytime she takes deep breaths she has some pain on the right lateral aspect of her chest. Patient states sitting still doesn't really hurt that much but taking deep breath or coughing causes a sharp pain in that area. Patient states she went to the urgent care facility and they thought she might need an ultrasound for possible gallbladder problems. Patient states it's no pain in the right upper quadrant under the rib this actually on the ribs lateral. Patient states his been no nausea or vomiting. Patient states his been ongoing a couple of days. Patient denies any fever chills. Patient states she is somewhat short of breath. Patient denies any calf pain or increased swelling in her legs. - Related Data Home Medications Medication Instructions Recorded Confirmed Citalopram Hydrobromide [CeleXA] 20 mg PO DAILY 06/09/16 01/31/17 Folic Acid 0.8 mg PO DAILY 01/31/17 01/31/17 Furosemide [Lasix] 20 mg PO DAILY 01/31/17 01/31/17 Potassium Chloride ER [K-Dur 20] 20 meq PO TID 01/31/17 01/31/17 metFORMIN HCL [Glucophage] 1,000 mg PO DAILY 01/31/17 01/31/17 sitaGLIPtin [Januvia] 100 mg PO DAILY 01/31/17 01/31/17 Allergies Allergy/AdvReac Type Severity Reaction Status Date / Time fluoxetine [From Prozac] Allergy Rash/Hives Verified 01/31/17 15:38 Review of Systems ROS Statement: Those systems with pertinent positive or pertinent negative responses have been documented in the HPI. ROS Other: All systems not noted in ROS Statement are negative. Past Medical History Past Medical History: Cancer Additional Past Medical History / Comment(s): gestational diabetes x 2 Pregnancies ,kidney stone. Umbilical Hernia, stage 4 amelantic melanoma, in past was tx for lt leg cellilitis. gastritis(per colonosocpy), colitis History of Any Multi-Drug Resistant Organisms: MRSA Date of last positivie culture/infection: 2007, 2010 MDRO Source:: hernia surgery, breast abscess Past Surgical History: Section, Hernia Repair Additional Past Surgical History / Comment(s): umbilical hernia repair,mesh later removed d/t infection and hernia repaired again at that time. colonoscopy/ egd Past Anesthesia/Blood Transfusion Reactions: Motion Sickness, Postoperative Nausea & Vomiting (PONV) Past Psychological History: Depression Smoking Status: Former smoker Past Alcohol Use History: None Reported Past Drug Use History: None Reported - Past Family History Mother Family Medical History: No Reported History Additional Family Medical History / Comment(s): mother suffers from depression Father History Unknown: Yes Family Medical History: Myocardial Infarction ([place]) Additional Family Medical History / Comment(s): biological father had alcoholism and of a heart attack at age 61 General Exam - General Exam Comments Initial Comments: GENERAL: Patient is well-developed and well-nourished. Patient is nontoxic and well- hydrated and is in no acute distress. ENT: Neck is soft and supple. No significant lymphadenopathy is noted. Moist mucous membranes. Neck has full range of motion without eliciting any pain. EYES: The sclera were anicteric and conjunctiva were pink and moist. Extraocular movements were intact and pupils were equal round and reactive to light. Eyelids were unremarkable. PULMONARY: Unlabored respirations. Good breath sounds bilaterally. No audible rales rhonchi or wheezing was noted. CARDIOVASCULAR: There is a regular rate and rhythm without any murmurs gallops or rubs. ABDOMEN: Soft and nontender with normal bowel sounds. There is no right upper quadrant tenderness. SKIN: Skin is clear with no lesions or rashes and otherwise unremarkable. NEUROLOGIC: Patient is alert and oriented x3. Cranial nerves II through XII are grossly intact. Motor and sensory are also intact. Normal speech, volume and content. Symmetrical smile. MUSCULOSKELETAL: Normal extremities with adequate strength and full range of motion. No calf tenderness however there is edema to both legs the left being greater than the right which the patient states is normal and there is no change LYMPHATICS: No significant lymphadenopathy is noted PSYCHIATRIC: Normal psychiatric evaluation. Limitations: no limitations Course Vital Signs 01/31/17 14:56 Temperature 98.0 F Pulse Rate 90 Respiratory 18 Rate Blood Pressure 159/81 O2 Sat by Pulse 95 Oximetry Medical Decision Making - Medical Decision Making EKG shows a normal sinus rhythm at 87 bpm KS interval is 138 QRS is 96 QT interval 370 QTC is 454. EKG shows no ST segment elevation or depression or T wave abnormalities are noted Chest x-ray shows no acute abnormality - Lab Data Result diagrams: 01/31/17 16:35 01/31/17 16:35 Lab Results 01/31/17 01/31/17 01/31/17 Range/Units 16:35 16:35 16:35 WBC 7.7 (3.8-10.6) k/uL RBC 4.72 (3.80-5.40) m/uL Hgb 13.3 (11.4-16.0) gm/dL Hct 40.7 (34.0-46.0) % MCV 86.4 (80.0-100.0) fL MCH 28.1 (25.0-35.0) pg MCHC 32.6 (31.0-37.0) g/dL RDW 16.8 H (11.5-15.5) % Plt Count 196 (150-450) k/uL Neutrophils % 73 % Lymphocytes % 18 % Monocytes % 5 % Eosinophils % 3 % Basophils % 1 % Neutrophils # 5.6 (1.3-7.7) k/uL Lymphocytes # 1.4 (1.0-4.8) k/uL Monocytes # 0.4 (0-1.0) k/uL Eosinophils # 0.2 (0-0.7) k/uL Basophils # 0.1 (0-0.2) k/uL Anisocytosis Slight D-Dimer 0.51 (<0.60) mg/L FEU Sodium 138 (137-145) mmol/L Potassium 4.1 (3.5-5.1) mmol/L Chloride 103 (98-107) mmol/L Carbon Dioxide 26 (22-30) mmol/L Anion Gap 9 mmol/L BUN 11 (7-17) mg/dL Creatinine 0.60 (0.52-1.04) mg/dL Est GFR (MDRD) Af Amer >60 (>60 ml/min/1.73 sqM) Est GFR (MDRD) Non-Af >60 (>60 ml/min/1.73 sqM) Glucose 145 H (74-99) mg/dL Calcium 9.7 (8.4-10.2) mg/dL Total Bilirubin 0.4 (0.2-1.3) mg/dL AST 22 (14-36) U/L ALT 34 (9-52) U/L Alkaline Phosphatase 69 (38-126) U/L Total Protein 6.6 (6.3-8.2) g/dL Albumin 3.7 (3.5-5.0) g/dL Amylase <30 L (30-110) U/L Lipase 41 (23-300) U/L Disposition Clinical Impression: Chest wall pain Disposition: HOME SELF-CARE Condition: Good Instructions: Chest Wall Pain (ED) Referrals: Mike Kahn MD [Primary Care Provider] - 1-2 days Time of Disposition: 17:41
[2017-01-31 16:52] LABS: Anisocytosis Slight; Basophils # (A) 0.1 k/uL (0-0.2); Basophils % (A) 1 %; CH 28.1; CHCM 32.7; Eosinophils # (A) 0.2 k/uL (0-0.7); Eosinophils % (A) 3 %; HCT 40.7 % (34.0-46.0); HGB 13.3 gm/dL (11.4-16.0); Luc # (Auto) 0.08; Luc % (Auto) 1; Lymphocytes # (A) 1.4 k/uL (1.0-4.8); Lymphocytes % (A) 18 %; MCH 28.1 pg (25.0-35.0); MCHC 32.6 g/dL (31.0-37.0); MCV 86.4 fL (80.0-100.0); Mean Platelet Volume 8.3; Monocytes # (A) 0.4 k/uL (0-1.0); Monocytes % (A) 5 %; Neutrophils # (A) 5.6 k/uL (1.3-7.7); Neutrophils % (A) 73 %; RBC 4.72 m/uL (3.80-5.40); RDW 16.8 % (11.5-15.5); WBC 7.7 k/uL (3.8-10.6); WBC (Perox) 8.23
[2017-01-31 17:00] LABS: ALT 34 U/L (9-52); AST 22 U/L (14-36); Alkaline Phosphatase 69 U/L (38-126); Amylase <30 U/L (30-110); Anion Gap 9 mmol/L; Blood Urea Nitrogen 11 mg/dL (7-17); Calcium 9.7 mg/dL (8.4-10.2); Carbon Dioxide 26 mmol/L (22-30); Chloride 103 mmol/L (98-107); Glucose 145 mg/dL (74-99); Non-African American GFR(MDRD) >60 (>60 ml/min/1.73 sqM); Potassium 4.1 mmol/L (3.5-5.1); Sodium 138 mmol/L (137-145); Total Bilirubin 0.4 mg/dL (0.2-1.3); Total Protein 6.6 g/dL (6.3-8.2)
--- NOTE | 2017-01-31 17:01 | XR ---
EXAMINATION TYPE: XR chest 2V DATE OF EXAM: 01/31/2017 COMPARISON: 09/13/2016 HISTORY: Difficulty breathing TECHNIQUE: Frontal and lateral views of the chest are obtained. FINDINGS: There is no heart failure nor confluent pneumonic infiltrate. Costophrenic angles are anais r. Mediastinum is normal. There is no sign of pleural effusion. IMPRESSION: No acute cardiopulmonary process. No adverse change compared to old exam.
[2017-01-31 17:54] VITALS: BP 161/75; PULSE 86; TEMP 97.9
== END 2017-01-31 18:20 | disposition home or self-care (01) ==
LOC: EC 14:43
DX: R07.89 Other chest pain (principal); R06.02 Shortness of breath; E11.9 Type 2 diabetes mellitus without complications; F32.9 Major depressive disorder, single episode, unspecified; Z86.14 Personal history of Methicillin resistant Staphylococcus aureus infection; Z87.891 Personal history of nicotine dependence; Z85.820 Personal history of malignant melanoma of skin; Z79.84 Long term (current) use of oral hypoglycemic drugs; Z79.899 Other long term (current) drug therapy; Z88.8 Allergy status to other drugs, medicaments and biological substances
CPT/HCPCS: 36415; 71020; 80053; 82150; 83690; 85025; 85379; 93005; 99284

== ENCOUNTER → 2017-05-24 | Outpatient (CLI) | payer BC ==
[2017-05-24 13:53] VITALS: BP 140/82; PULSE 96; RESP 15; TEMP 98.4; BMI 68.1
--- NOTE | 2017-05-24 14:46 | P.HPBAR ---
Bariatric H&P - History & Physicial H&P Date: 05/24/17 History & Physicial: Visit/CC: bariatric consult Patient initial contact: Initial weight: 188.241 kg Initial weight in pounds: 415.00 Height: 5 ft 5.55 in Initial BMI: 67.8 Last weight: Current weight: 188.921 kg Current weight in pounds: 416.50 Current BMI: 68.1 [place] body weight (based on NIH guidelines): 57.946 kg Excess body weight loss: The patient is a 36 year-old F who presents for Bariatric Assessment. Patient seen today in the bariatric center as a new patient evaluation. Patient has been considering weight loss surgery for many years. She is currently interested in sleeve gastrectomy. She went to recent seminar by Dr. Christie. She previously had been going through the process of sleeve gastrectomy by Dr. Stanton. The patient's history is significant for a diagnosis of metastatic melanoma in late 2015. The patient underwent immunotherapy. She had 2 separate systemic treatments with a clinical complete response. The patient has had 3 PET scans performed since last September all of which are negative. Upon diagnosis she did have bilateral axillary masses as well as 2 separate masses in her back. The primary site was never identified. As a side effect of her treatment last year she did have bad colitis that has since resolved. Recently the patient was having epigastric abdominal pain and also some pain radiating around to the right back. She did have a history of a kidney stone in the past. No history of known gallstones. She went to urgent care recently and had labs checked. Apparently a CAT scan was ordered by her insurance company denied that stating that she needed an upper endoscopy first. No ultrasound has been done. No history of previous cholecystectomy. Feels better today. She said she felt somewhat bloated in the epigastric region with some abdominal cramping. Denies rectal bleeding or melena. No vomiting. Patient has a additional history of diabetes. Denies GERD, no dysphagia, no DVT. Patient had a prior umbilical hernia repair with mesh and subsequent mesh infection which required reoperation. Review of Systems The patient denies any acute changes in vision or hearing, no dysphagia or odynophagia, no chest pain or shortness of breath, no dysuria or hematuria, no headache, no runny nose, no rectal bleeding or melena, no unexplained weight loss Past Medical History Past Medical History: Cancer, Diabetes Mellitus Additional Past Medical History / Comment(s): gestational diabetes x 2 Pregnancies ,kidney stone. Umbilical Hernia, stage 4 Amelanotic melanoma, in past was tx for lt leg cellilitis. gastritis(per colonosocpy), colitis, Type 2 Dm History of Any Multi-Drug Resistant Organisms: MRSA Year Discovered:: 2007, 2010 MDRO Source:: hernia surgery, breast abscess Past Surgical History: Section, Hernia Repair Additional Past Surgical History / Comment(s): umbilical hernia repair,mesh later removed d/t infection and hernia repaired again at that time. colonoscopy/ egd Past Anesthesia/Blood Transfusion Reactions: Motion Sickness, Postoperative Nausea & Vomiting (PONV) Past Psychological History: Depression Additional Psychological History / Comment(s): denies any thoughts of harming self, takes Celexa 20mg daily Smoking Status: Former smoker Past Alcohol Use History: None Reported Additional Past Alcohol Use History / Comment(s): started smoking at age 13(1993 ) quit 2009. smoked 1 ppd. Past Drug Use History: None Reported - Past Family History Mother Family Medical History: No Reported History Additional Family Medical History / Comment(s): mother suffers from depression Father History Unknown: Yes Family Medical History: Myocardial Infarction ([place]) Additional Family Medical History / Comment(s): biological father had alcoholism and of a heart attack at age 61 Surgical - Exam Vital Signs Temp Pulse Resp BP 98.4 F 96 15 140/82 05/24/17 13:39 05/24/17 13:39 05/24/17 13:39 05/24/17 13:39 Physical exam: General: Well-developed, well-nourished HEENT: Normocephalic, sclerae nonicteric Abdomen: Nontender, nondistended, large pannus, periumbilical scar Extremities: No edema Neuro: Alert and oriented Bariatric Assessment & Plan (1) Morbid obesity Narrative/Plan: Surgical management of morbid obesity discussed in detail with the patient today. Discussed the risks and benefits of lap band, gastric sleeve, gastric bypass, and duodenal switch. The patient remains interested in the gastric sleeve at this time. The additional weight loss expected with a more aggressive surgical repair procedure that includes malabsorption was reviewed in detail. The patient would like to consider her surgical options further before making a final decision. In the meanwhile because of her upper abdominal pain we'll schedule for ultrasound abdomen and also upper endoscopy. If those studies are inconclusive would recommend CT abdomen particularly given her history of metastatic melanoma. Status: Acute Bariatric Checklist Checklist: Plan: Checklist: EGD: 1. Hiatal hernia: 2. H. Pylori: HgbA1c: Vitamin D: Smoking: Former smoker Primary care physician referral: Criss Psychiatry clearance: Cardiology clearance: Sleep study: Diet journal: VTE risk score: VTE risk level: Rehab needs at discharge:
== END | disposition home or self-care (01) ==
LOC: BARWHC3 13:19
PROVIDERS: ATTEND Surgery
DX: E66.01 Morbid (severe) obesity due to excess calories (principal); Z68.44 Body mass index [BMI] 60.0-69.9, adult; Z87.891 Personal history of nicotine dependence
CPT/HCPCS: 99211

== ENCOUNTER → 2017-06-01 | Outpatient (CLI) | payer BC ==
--- NOTE | 2017-06-01 08:00 | US ---
EXAMINATION TYPE: US abdomen limited DATE OF EXAM: 06/01/2017 COMPARISON: CT & US CLINICAL HISTORY: R10.13 Epigastric pain. Pt states ABD pain and cramping post prandial EXAM MEASUREMENTS: Liver Length: 22.2 cm Gallbladder Wall: 0.2 cm CBD: 0.4 cm Right Kidney: 11.5 x 6.6 x 6.3 cm Severely, morbidly obese pt, difficult exam Pancreas: wnl, tail obscured by overlying bowel gas Liver: Enlarged, difficult to penetrate Gallbladder: Lumen clear, appeared wnl Evidence for sonographic Ryder's sign: No CBD: wnl Right Kidney: wnl IMPRESSION: 1. Hepatomegaly with probable underlying hepatic steatosis.
== END | disposition home or self-care (01) ==
LOC: RADUSWWP 07:24
PROVIDERS: ATTEND Surgery
DX: R16.0 Hepatomegaly, not elsewhere classified (principal); R10.13 Epigastric pain; Z88.8 Allergy status to other drugs, medicaments and biological substances
CPT/HCPCS: 76705

== ENCOUNTER 2017-06-20 09:38 | Day surgery (SDC) | payer BC ==
[2017-06-15 15:58] VITALS: BMI 66.9
[~2017-06-20 09:38] MED LIST: LACTATED RINGERS 1,000 ML IV SCH; LIDOCAINE 1% 20 ML VIAL (10MG/ML) FOR IV START INTRADERMA PRN
[2017-06-20 10:17] VITALS: RESP 18; TEMP 98.3
[2017-06-20 10:17] LABS: Glucose,Whole Blood 120 mg/dL (75-99)
[2017-06-20] MEDS ORDERED: LIDOCAINE 1% INJ 10MG/ML (20 ML MDV) ONE (10:19)
[2017-06-20] MEDS ORDERED: PROPOFOL 10 MG/ML 20 ML VIAL IV ONE (10:19)
--- NOTE | 2017-06-20 10:25 | P.GSHP ---
History of Present Illness H&P Date: 06/20/17 Chief Complaint: GERD Patient here today for upper endoscopy. She's being worked up for bariatric surgery. Also was having upper abdominal pain. This is persisting. Recent ultrasound abdomen was normal. No CAT scan. Past Medical History Past Medical History: Cancer, Diabetes Mellitus, GERD/Reflux Additional Past Medical History / Comment(s): HX kidney stone. stage 4 Amelanotic melanoma, in past was tx for lt leg cellilitis. PAST HX COLITIS History of Any Multi-Drug Resistant Organisms: MRSA Date of last positivie culture/infection: 2007, 2010 MDRO Source:: hernia surgery, breast abscess Past Surgical History: Section, Hernia Repair Additional Past Surgical History / Comment(s): umbilical hernia repair,mesh later removed d/t infection and hernia repaired again at that time. SIGMOIDOSCOPY/egd Past Anesthesia/Blood Transfusion Reactions: Motion Sickness, Postoperative Nausea & Vomiting (PONV) Smoking Status: Never smoker - Past Family History Mother Family Medical History: No Reported History Additional Family Medical History / Comment(s): mother suffers from depression Father History Unknown: Yes Family Medical History: Myocardial Infarction ([place]) Additional Family Medical History / Comment(s): biological father had alcoholism and of a heart attack at age 61 Medications and Allergies Home Medications Medication Instructions Recorded Confirmed Type Citalopram Hydrobromide [CeleXA] 20 mg PO DAILY 06/09/16 06/20/17 History Folic Acid 0.8 mg PO DAILY 01/31/17 06/20/17 History metFORMIN HCL [Glucophage] 1,000 mg PO DAILY 01/31/17 06/20/17 History sitaGLIPtin [Januvia] 100 mg PO DAILY 01/31/17 06/20/17 History Allergies Allergy/AdvReac Type Severity Reaction Status Date / Time fluoxetine [From Prozac] Allergy Rash/Hives Verified 06/20/17 10:05 Surgical - Exam Vital Signs Temp Pulse Resp BP Pulse Ox 98.3 F 82 18 145/71 96 06/20/17 10:16 06/20/17 10:16 06/20/17 10:16 06/20/17 10:16 06/20/17 10:16 Physical exam: General: Well-developed, well-nourished HEENT: Normocephalic, sclerae nonicteric Abdomen: Nontender, nondistended Extremities: No edema Neuro: Alert and oriented Results - Labs Abnormal Lab Results - Last 24 Hours (Table) 06/20/17 Range/Units 10:15 POC Glucose (mg/dL) 120 H (75-99) mg/dL Assessment and Plan (1) Abdominal pain Current Visit: Yes Status: Acute Code(s): R10.9 - UNSPECIFIED ABDOMINAL PAIN SNOMED Code(s): 60134468
--- NOTE | 2017-06-20 10:35 | P.PCN ---
Date of Procedure: 06/20/17 Procedure(s) Performed: Preoperative Dx: Abdominal pain, GERD Postoperative Dx: Gastritis Procedure: EGD with Bx Anesthesia: Sedation Endoscopist: Dr. Doe Specimens: Antrum Endoscopic Procedure: The patient was on the endoscopy table in the left decubitus position. The Olympus gastroscope was inserted into the oropharynx and passed under direct visualization to the region of the third portion of the duodenum. From that point the scope was slowly withdrawn inspecting all surfaces carefully. There were no neoplastic inflammatory or polypoid lesions throughout the duodenum. The pylorus was widely patent. The stomach was carefully inspected. There was mild gastritis present. A biopsy of the antrum took place to rule out H. pylori. Retroflexion revealed a normal hiatus. The esophagus was then carefully examined. There were no neoplastic inflammatory or polypoid lesions throughout the visualized esophagus. The patient was then taken to the recovery room in stable condition per anesthesia guidelines. Recommendations: Patient still having abdominal pain that more than expected. Recent ultrasound does not show any obvious gallbladder disease. The patient has a recent history of metastatic melanoma. We'll proceed with CT abdomen.
[2017-06-20 11:06] VITALS: BP 138/90; PULSE 84
== END 2017-06-20 11:26 | disposition home or self-care (01) ==
LOC: ORWHC2ENDO 09:38
PROVIDERS: ATTEND Surgery
DX: K29.50 Unspecified chronic gastritis without bleeding (principal); K31.89 Other diseases of stomach and duodenum; E11.9 Type 2 diabetes mellitus without complications; Z79.84 Long term (current) use of oral hypoglycemic drugs; K21.9 Gastro-esophageal reflux disease without esophagitis; K52.9 Noninfective gastroenteritis and colitis, unspecified; E66.01 Morbid (severe) obesity due to excess calories; Z68.44 Body mass index [BMI] 60.0-69.9, adult; F32.9 Major depressive disorder, single episode, unspecified; Z85.820 Personal history of malignant melanoma of skin; Z87.442 Personal history of urinary calculi; Z79.899 Other long term (current) drug therapy; Z88.8 Allergy status to other drugs, medicaments and biological substances
CPT/HCPCS: 81025; 88305; 43239; J2001; J2704

== ENCOUNTER → 2017-06-27 | Outpatient (CLI) | payer BC ==
--- NOTE | 2017-06-27 10:40 | CT ---
"EXAMINATION TYPE: CT abdomen pelvis w con DATE OF EXAM: 06/27/2017 HISTORY: Patient complains of epigastric to RUQ pain. CT DLP: 6165.8mGycm Automated Exposure Control for Dose Reduction was Utilized. CONTRAST: CT scan of the abdomen and pelvis is performed with IV Contrast, patient injected with 100 mL of Isov ue 300. COMPARISON: None. FINDINGS: LUNG BASES: No significant abnormality is appreciated. LIVER/GB: Finding of probable hepatic steatosis on the prior ultrasound dated 06/01/2017 is likely due to suboptimal penetration as there is copious subcutaneous fat. Enhancement of the liver is similar to that of the spleen therefore no evidence of hepatic steatosis is seen. No focal hepatic masses are identified. No intrahepatic biliary ductal dilatation. No radiopaque calculi. Gallbladder is elongat ed measuring 9.4 cm although is not hydropic. PANCREAS: Pancreas enhances homogeneously without ductal dilatation. SPLEEN: No significant abnormality is seen. No splenomegaly. ADRENALS: No significant abnormality is seen. No nodularity or thickening. KIDNEYS: There is a nonobstructing right lower pole renal calculus measuring 6 mm. No evidence of hyd ronephrosis bilaterally. Kidneys enhance and excrete symmetrically other than a 7 mm too small to acc urately characterize left upper pole lesion seen best on delayed imaging. BOWEL: No significant abnormality is seen. UTERUS/ADNEXA: No gross abnormality seen. Tubal ligation clips are noted. LYMPH NODES: No greater than 1cm abdominal or pelvic lymph nodes are appreciated. OSSEOUS STRUCTURES: Symmetric vacuum disc disease is seen of the sacroiliac joints from mild degenera tive change. OTHER: There is an infraumbilical wide necked ventral hernia containing loops of large and small luis a l. There is mild dilatation of the loops of small bowel entering the ventral hernia with decreased ca liber of the small bowel loop there a more narrow neck portion of the hernia on sagittal series 9 ashley ge 88 measuring 1.5 cm and decompression of the exiting bowel loops seen on series 3 image 83 through 74. Findings raise suspicion for possible early entrapment and correlation with reducibility is chemo mmended. Some inflammatory fat stranding is seen left paracentral of the inferior margin of the herni a on series 3 image 88. There is no current evidence of pneumatosis intestinalis. Distal and terminal ileum loops remain overall decompressed. Appendix is within normal limits without periappendiceal fa t stranding. Above findings are also well demonstrated on coronal images series 8 images 25, 26, and 27. No evidence of portal venous gas. IMPRESSION: 1. Findings raise suspicion for entrapment/incarceration and early obstruction of small bowel within an initially wide necked infraumbilical ventral abdominal hernia with a more distal component of a na rrow neck containing a loop of small bowel that is proximally dilated and distally decompressed. No c urrent evidence of bowel ischemia such as portal venous gas or pneumatosis intestinalis. Correlate wi th reducibility. 2. Nonobstructing right lower pole renal calculus and too small to accurately characterize left renal lesion. 3. No CT evidence of hepatic steatosis. The previously questioned hepatic steatosis on the prior ultr asound likely relates to poor penetration of the ultrasound beam through the extensive subcutaneous t issues. A [place] level critical message alert has been initiated for Anastacio Doe MD via the [employer] 36 0 | Critical Results System on 06/27/2017 10:37 AM. This message alert has been sent to Anastacio Doe MD via the preferences provided by the clinician for the receipt of Radiology Critical Findings. Vt ssage ID [id number]."
== END | disposition home or self-care (01) ==
LOC: RADCTMAIN 07:35
PROVIDERS: ATTEND Surgery
DX: N20.0 Calculus of kidney (principal)
CPT/HCPCS: 74177; Q9967

== ENCOUNTER → 2017-07-10 | Outpatient (CLI) | payer BC ==
[2017-07-10 13:56] VITALS: BP 152/74; PULSE 74; RESP 16; TEMP 98.2; BMI 67.1
--- NOTE | 2017-07-10 14:44 | P.BASOAP ---
Subjective Progress Note Date: 07/10/17 Principal diagnosis: Morbid obesity Patient doing well today. She had a PET scan and MRI just done recently and has an appointment to see her oncologist regarding those findings. She was found in late June by CAT scan to have a partial small bowel obstruction related to a recurrent umbilical hernia. She was seen by Dr. Jackson who initially performed her surgical repair and has been scheduled for laparoscopic robotic-assisted hernia repair in the next 1-2 weeks. She is not seen psychiatry yet and has an appointment to see them on August 16. She remains interested in sleeve gastrectomy. Objective - Vital Signs Vital signs: Vital Signs Temp 98.2 F 07/10/17 13:46 Pulse 74 07/10/17 13:46 Resp 16 07/10/17 13:46 BP 152/74 07/10/17 13:46 Pulse Ox Intake & Output 07/09/17 07/10/17 07/10/17 18:59 06:59 18:59 Weight 185.973 kg - Exam Physical exam: General: Well-developed, well-nourished HEENT: Normocephalic, sclerae nonicteric Abdomen: Nontender, nondistended, slight fullness at umbilicus without tenderness Extremities: No edema Neuro: Alert and oriented Assessment/Plan (1) Morbid obesity Narrative/Plan: At this time we'll await the final oncologic clearance. Also await the upcoming laparoscopic repair of her incisional hernia. Will tentatively plan surgery late September or early October. The risk profile sheet was reviewed in detail today. All questions were answered. Plan: Date: 07/10/17 Initial Weight: 188.241 kg Initial BMI: 67.8 Current Weight: 185.973 kg Current BMI: 67.1 Type of Surgery: Vertical Sleeve Gastrectomy Total Volume in Band: Previous Volume: Volume Removed: Volume Added: Band Size:
== END | disposition home or self-care (01) ==
LOC: BARWHC3 13:35
PROVIDERS: ATTEND Surgery
DX: E66.01 Morbid (severe) obesity due to excess calories (principal); Z68.44 Body mass index [BMI] 60.0-69.9, adult
CPT/HCPCS: 99211

== ENCOUNTER → 2017-10-01 | Outpatient (CLI) | payer BC ==
[2017-10-01 11:38] VITALS: BMI 67.7
== END | disposition home or self-care (01) ==
LOC: BARWHC3 08:23
PROVIDERS: ATTEND Surgery
DX: E66.01 Morbid (severe) obesity due to excess calories (principal)
CPT/HCPCS: 97804

== ENCOUNTER → 2017-10-16 | Outpatient (CLI) | payer BC ==
[2017-10-16 15:33] VITALS: BP 137/80; PULSE 91; RESP 16; TEMP 98.7; BMI 65.9
--- NOTE | 2017-10-16 17:16 | P.BASOAP ---
Subjective Progress Note Date: 10/16/17 Principal diagnosis: Morbid obesity Patient here today for follow-up visit preop for sleeve gastrectomy this Sunday. Since she was last seen she had her incisional hernia repaired laparoscopically by Dr. Jackson. She is doing well. The pain that she was having and the intermittent vomiting that she was having has resolved. Objective - Vital Signs Vital signs: Vital Signs Temp 98.7 F 10/16/17 15:27 Pulse 91 10/16/17 15:27 Resp 16 10/16/17 15:27 BP 137/80 10/16/17 15:27 Pulse Ox Intake & Output 10/15/17 10/16/17 10/16/17 18:59 06:59 18:59 Weight 182.798 kg - Exam Abdomen: Soft, nontender, nondistended Assessment/Plan (1) Morbid obesity Narrative/Plan: The risks and benefits of sleeve gastrectomy were again reviewed. We did obtain preoperative clearance from her oncologist for the procedure. We'll proceed with sleeve gastrectomy on 10/19. Plan: Date: 10/16/17 Initial Weight: 188.241 kg Initial BMI: 67.8 Current Weight: 182.798 kg Current BMI: 65.9 Type of Surgery: Vertical Sleeve Gastrectomy Total Volume in Band: Previous Volume: Volume Removed: Volume Added: Band Size:
== END | disposition home or self-care (01) ==
LOC: BARWHC3 13:38
PROVIDERS: ATTEND Surgery
DX: E66.01 Morbid (severe) obesity due to excess calories (principal); Z68.44 Body mass index [BMI] 60.0-69.9, adult; Z01.812 Encounter for preprocedural laboratory examination
CPT/HCPCS: 99211

== ENCOUNTER → 2017-10-16 | Outpatient (CLI) | payer BC ==
[2017-10-16 16:01] LABS: Basophils # (A) 0.1 k/uL (0-0.2); Basophils % (A) 1 %; Eosinophils # (A) 0.1 k/uL (0-0.7); Eosinophils % (A) 2 %; HCT 43.1 % (34.0-46.0); HGB 14.2 gm/dL (11.4-16.0); Lymphocytes # (A) 1.4 k/uL (1.0-4.8); Lymphocytes % (A) 22 %; MCH 28.8 pg (25.0-35.0); MCHC 32.9 g/dL (31.0-37.0); MCV 87.6 fL (80.0-100.0); Mean Platelet Volume 7.9; Monocytes # (A) 0.5 k/uL (0-1.0); Monocytes % (A) 7 %; Neutrophils # (A) 4.4 k/uL (1.3-7.7); Neutrophils % (A) 68 %; Platelet Count 187 k/uL (150-450); RBC 4.92 m/uL (3.80-5.40); RDW 14.2 % (11.5-15.5); WBC 6.6 k/uL (3.8-10.6)
[2017-10-16 16:12] LABS: ALT 43 U/L (9-52); AST 32 U/L (14-36); Albumin 4.2 g/dL (3.5-5.0); Alkaline Phosphatase 52 U/L (38-126); Anion Gap 11 mmol/L; Blood Urea Nitrogen 16 mg/dL (7-17); Calcium 9.5 mg/dL (8.4-10.2); Carbon Dioxide 22 mmol/L (22-30); Chloride 107 mmol/L (98-107); Glucose 107 mg/dL (74-99); Potassium 4.4 mmol/L (3.5-5.1); Sodium 140 mmol/L (137-145); Total Bilirubin 0.3 mg/dL (0.2-1.3); Total Protein 6.9 g/dL (6.3-8.2)
== END | disposition home or self-care (01) ==
LOC: LABPAT 15:18
PROVIDERS: ATTEND Surgery
DX: Z01.812 Encounter for preprocedural laboratory examination (principal)
CPT/HCPCS: 36415; 80053; 85025

== ENCOUNTER 2017-10-19 09:00 | Inpatient (IN) | payer BC ==
[~2017-10-19 09:00] MED LIST changes: +DEXAMETHASONE SOD PHOSPHATE 10 MG/ML 1 ML VIAL IV ONE; -LACTATED RINGERS 1,000 ML IV SCH; +ONDANSETRON 4 MG/2 ML VIAL IVP ONE; +SCOPOLAMINE 1.5MG/72HR PATCH TRANSDERM ONE
[2017-10-19] MEDS ORDERED: ENOXAPARIN 40 MG/0.4 ML SYRINGE SQ STA (11:10)
--- NOTE | 2017-10-19 12:14 | P.GSHP ---
History of Present Illness H&P Date: 10/19/17 Chief Complaint: Morbid obesity 37-year-old female well-known to our service. She was recently seen in the bariatric clinic earlier this week. Patient here today for elective sleeve gastrectomy. Denies dysphagia. No history of DVT. Preoperative clearance been obtained from her physician and from her oncologist. Previous EGD showed gastritis. Please refer to recent progress note from the bariatric clinic as well as the recent H&P from the bariatric clinic for additional details. 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 , States she is on a Protein Shake diet for 2 weeks pre-op per instructions. History of Any Multi-Drug Resistant Organisms: MRSA Date of last positivie culture/infection: 2007, 2010 MDRO Source:: hernia surgery, breast abscess Past Surgical History: Section, Hernia Repair Additional Past Surgical History / Comment(s): umbilical hernia repair with mesh .,mesh later removed d/t infection and hernia repaired again., colonoscopy/ egd Past Anesthesia/Blood Transfusion Reactions: Motion Sickness, Postoperative Nausea & Vomiting (PONV) Smoking Status: Former smoker - Past Family History Mother Family Medical History: No Reported History Additional Family Medical History / Comment(s): mother suffers from depression Father History Unknown: Yes Family Medical History: Myocardial Infarction ([place]) Additional Family Medical History / Comment(s): biological father had alcoholism and of a heart attack at age 61 Medications and Allergies Home Medications Medication Instructions Recorded Confirmed Type Citalopram Hydrobromide [CeleXA] 20 mg PO DAILY 06/09/16 10/19/17 History Folic Acid 0.8 mg PO DAILY 01/31/17 10/19/17 History metFORMIN HCL [Glucophage] 1,000 mg PO DAILY 01/31/17 10/19/17 History Allergies Allergy/AdvReac Type Severity Reaction Status Date / Time fluoxetine [From Prozac] Allergy Rash/Hives Verified 10/19/17 12:05 Surgical - Exam Vital Signs Temp Pulse Resp BP Pulse Ox 98.4 F 89 16 137/88 95 10/19/17 12:04 10/19/17 12:04 10/19/17 12:04 10/19/17 12:04 10/19/17 12:04 Physical exam: General: Well-developed, well-nourished HEENT: Normocephalic, sclerae nonicteric Abdomen: Nontender, nondistended Extremities: No edema Neuro: Alert and oriented Assessment and Plan (1) Morbid obesity Narrative/Plan: Will proceed with sleeve gastrectomy at this time. The risks of bleeding, infection, stenosis, stricture, leak, abscess, fistula formation, peritonitis, poor weight loss, reflux, vomiting, conversion to an open procedure, aborting sleeve gastrectomy, [place], PE, DVT, and were discussed. The patient understands and wishes to proceed. Current Visit: No Status: Acute Code(s): E66.01 - MORBID (SEVERE) OBESITY DUE TO EXCESS CALORIES OMED Code(s): 013287105
[2017-10-19] MEDS: LACTATED RINGERS 1,000 ML IV SCH (12:21)
[2017-10-19 12:31] LABS: Glucose,Whole Blood 100 mg/dL (75-99)
[2017-10-19] MEDS ORDERED: SUCCINYLCHOLINE CHLORIDE VIAL 200 MG/10 ML VIAL IV ONE (12:42)
[2017-10-19] MEDS ORDERED: PROPOFOL 10 MG/ML 20 ML VIAL IV ONE (12:42)
[2017-10-19] MEDS ORDERED: MIDAZOLAM 2 MG/2 ML VIAL ONE (12:42)
[2017-10-19] MEDS ORDERED: LIDOCAINE 1% INJ 10MG/ML (20 ML MDV) ONE (12:42)
[2017-10-19] MEDS ORDERED: fentaNYL (PF) 50 MCG/ML 2 ML AMP ONE (12:42)
[2017-10-19] MEDS ORDERED: GLYCOPYRROLATE 0.2 MG/ML 2 ML VIAL ONE (12:42)
[2017-10-19] MEDS ORDERED: ROCURONIUM BROMIDE 10 MG/ML 10 ML VIAL IV ONE (12:42)
[2017-10-19] MEDS ORDERED: HYDROmorphone (PF) 1 MG/ML ONE (12:42)
[2017-10-19] MEDS ORDERED: NEOSTIGMINE 1 MG/ML 10 ML VIAL ONE (12:42)
[2017-10-19] MEDS ORDERED: BUPIVACAIN-EPI 0.5%-1:200,000 30 ML VIAL SQ ONE (13:16)
[2017-10-19] MEDS ORDERED: LACTATED RINGERS 1,000 ML IV ONE (14:18)
[2017-10-19] MEDS ORDERED: diphenhydrAMINE 50 MG/ML 1 ML VIAL IVP PRN (14:38)
[2017-10-19] MEDS ORDERED: ACETAMINOPHEN IV (For NPO) 1,000 MG in EMPTY BAG 1 BAG IVPB ONE (14:38)
[2017-10-19] MEDS ORDERED: NALOXONE 0.4 MG/ML 1 ML VIAL IV PRN (14:38)
[2017-10-19] MEDS ORDERED: SIMETHICONE 40 MG/0.6 ML DROPS 2,000 MG/30 ML BOTTLE PO PRN (14:38)
[2017-10-19] MEDS ORDERED: HYDROmorphone 1 MG/ML 1 ML SYRINGE IVP PRN (14:38)
--- NOTE | 2017-10-19 14:44 | P.OP ---
Date of Procedure: 10/19/17 Procedure(s) Performed: PREOPERATIVE DIAGNOSIS: Morbid obesity, diabetes POSTOPERATIVE DIAGNOSIS: Same PROCEDURE: Laparoscopic sleeve gastrectomy SURGEON: Nader EBL: Minimal ANESTHESIA: General COMPLICATIONS: None OPERATIVE PROCEDURE: Patient was placed in the operating table in the supine position. She was placed under general anesthesia at that time. The abdomen was prepped and draped in sterile fashion after the patient was placed in lithotomy. A 5 mm optical trocar was used to enter the abdominal cavity in the left upper quadrant. Insufflation took place to 15 millimeters mercury. An additional right subxiphoid 5 mm trocar was then placed under direct visualization and then removed. 2 additional 5 mm trochars were placed in the right upper quadrant and left upper quadrant under direct visualization and a 15 mm trocar in the supraumbilical location. The liver was retracted using a medium Ann liver retractor through the right subxiphoid trocar site. The hiatus was inspected. The patient had no visible hiatal hernia At that point I moved to the mid aspect of the greater curvature the stomach. The short gastric vasculature was divided using a LigaSure device proximally. I then switched and divided the short gastrics distally to a 3-4 cm from the pylorus. The dissection took place up to the left diaphragmatic crura at that point. The posterior short gastrics were likewise divided using the LigaSure device. Once the stomach was fully mobilized the blunt tipped 40-Macedonian bougie dilator was advanced into the stomach and advanced all the way to the prepyloric location. A black echelon 60 stapler was utilized and fired tangentially across the antrum taking care to avoid narrowing at the incisura angularis. Subsequent firings of the stapler took place. An additional black load was utilized followed by 4 green loads of the echelon 60 stapler. These had seam guard in place as well. The oral gastric tube was reinserted. The stomach was insufflated with approximately 100 mL of methylene blue. No evidence of leak or obstruction was seen. The stomach remnant was removed from the 15 mm trocar site without difficulty. Tisseel fibrin glue was used along the length of the staple line. The fascia at the 15 more site was closed using interrupted 0 Vicryl sutures with the laparoscopic suture passer and Ashok Galen technique. The insufflation was evacuated. The skin at all 5 incisions were closed using 4-0 Monocryl sutures. Steri-Strips and sterile dressings were then applied. DISPOSITION: Stable to recovery room
[2017-10-19] MEDS: HYDROmorphone 0.5 MG/0.5 ML SYRINGE IVP PRN ×4 (14:47→15:55)
[2017-10-19] MEDS ORDERED: KETOROLAC 30 MG/ML 1 ML VIAL IVP ONE (14:52)
[2017-10-19 15:33] LABS: Glucose,Whole Blood 165 mg/dL (75-99)
[2017-10-19] MEDS ORDERED: ONDANSETRON 4 MG/2 ML VIAL IVP ONE (15:35)
[2017-10-19 17:16] VITALS: BMI 64.4
[2017-10-19] MEDS: 0.9% NACL WITH KCL 20 MEQ/L 1,000 ML IV SCH (17:52)
[2017-10-19] MEDS: ALBUTEROL NEBULIZED 2.5 MG/3 ML INHALATION SCH ×2 (18:42→18:43)
[2017-10-19] MEDS: ONDANSETRON 4 MG/2 ML VIAL IVP PRN (21:33)
[2017-10-19 21:34] LABS: Glucose,Whole Blood 153 mg/dL (75-99)
[2017-10-19] MEDS: INSULIN ASPART 100 UNIT/ML 1 ML 10 ML VIAL SQ SCH (21:43)
[2017-10-20] MEDS: HYOSCYAMINE ORAL DROPS 1.875 MG/15 ML BOTTLE PO PRN ×2 (00:30→16:08)
[2017-10-20] MEDS: 0.9% NACL WITH KCL 20 MEQ/L 1,000 ML IV SCH ×2 (00:34→05:25)
[2017-10-20] MEDS: LACTATED RINGERS 1,000 ML IV SCH (05:25)
[2017-10-20] MEDS: ONDANSETRON 4 MG/2 ML VIAL IVP PRN ×3 (05:35→21:13)
[2017-10-20 06:59] LABS: Glucose,Whole Blood 137 mg/dL (75-99)
[2017-10-20 07:23] LABS: Basophils % (A) 0 %; Eosinophils % (A) 0 %; HCT 38.3 % (34.0-46.0); HGB 12.5 gm/dL (11.4-16.0); Lymphocytes # (A) 0.7 k/uL (1.0-4.8); Lymphocytes % (A) 7 %; MCH 28.9 pg (25.0-35.0); MCHC 32.7 g/dL (31.0-37.0); MCV 88.4 fL (80.0-100.0); Mean Platelet Volume 7.8; Monocytes # (A) 0.7 k/uL (0-1.0); Monocytes % (A) 7 %; Neutrophils # (A) 8.6 k/uL (1.3-7.7); Neutrophils % (A) 85 %; Platelet Count 180 k/uL (150-450); RBC 4.33 m/uL (3.80-5.40)
[2017-10-20 07:36] LABS: Anion Gap 7 mmol/L; Blood Urea Nitrogen 8 mg/dL (7-17); Carbon Dioxide 25 mmol/L (22-30); Chloride 107 mmol/L (98-107); Magnesium 1.6 mg/dL (1.6-2.3); Phosphorus 3.7 mg/dL (2.5-4.5); Potassium 4.8 mmol/L (3.5-5.1); Sodium 139 mmol/L (137-145)
[2017-10-20] MEDS: INSULIN ASPART 100 UNIT/ML 1 ML 10 ML VIAL SQ SCH ×3 (07:59→17:20)
[2017-10-20] MEDS: ALBUTEROL NEBULIZED 2.5 MG/3 ML INHALATION SCH ×4 (08:14→20:45)
--- NOTE | 2017-10-20 08:50 | FL ---
EXAMINATION TYPE: FL UGI DATE OF EXAM ORDERED: 10/20/2017 8:38 AM HISTORY: Status post gastric sleeve procedure. COMPARISON: None. FINDINGS: The patient drank contrast with ease. There was mild holdup of contrast at the GE junction . There is no evidence of extravasation. The ligament of Treitz is in the normal location. No signifi cant free air is seen. IMPRESSION: STATUS POST GASTRIC SLEEVE PROCEDURE
[2017-10-20] MEDS: PANTOPRAZOLE 40 MG/10 ML VIAL IV SCH (08:58)
[2017-10-20] MEDS: ENOXAPARIN 60 MG/0.6 ML SYRINGE SQ SCH ×2 (08:58→20:24)
[2017-10-20] MEDS: 1: MVI, ADULT NO.4 WITH VIT K 10 ML, THIAMINE 100 MG, FOLIC ACID 1 MG, POTASSIUM CHLORID IV SCH ×12 (08:58→20:24)
--- NOTE | 2017-10-20 10:34 | P.PN ---
Subjective Progress Note Date: 10/20/17 Principal diagnosis: Morbid obesity Patient doing well today. Only mild discomfort. Some cramping symptoms with drinking liquids. White blood cell count 10. Upper GI shows no evidence of leak or obstruction. She is ambulating. Objective - Vital Signs Vital signs: Vital Signs Temp 98.4 F 10/20/17 07:45 Pulse 80 10/20/17 10:22 Resp 22 10/20/17 10:06 BP 131/74 10/20/17 07:45 Pulse Ox 98 10/20/17 10:09 Intake & Output 10/19/17 10/20/17 10/20/17 18:59 06:59 18:59 Intake Total 1700 750 Output Total 10 1200 Balance 1690 -450 Weight 181.165 kg Intake: IV 1700 Intake, IV Titration 750 Amount 0.9% NaCl with KCl 20 Meq 750 /l 1,000 ml @ 150 mls/hr IV .[id number] BRIAN Rx#: [id number] Output: Urine 1200 Estimated Blood Loss 10 Other: Voiding Method Toilet Toilet # Voids 1 - Exam Abdomen: Soft, nondistended, incisions clean dry - Labs CBC & Chem 7: 10/20/17 06:31 10/20/17 06:31 Labs: Abnormal Lab Results - Last 24 Hours (Table) 10/19/17 10/19/17 10/19/17 Range/Units 12:14 15:29 21:31 Neutrophils # (1.3-7.7) k/uL Lymphocytes # (1.0-4.8) k/uL POC Glucose (mg/dL) 100 H 165 H 153 H (75-99) mg/dL Calcium (8.4-10.2) mg/dL 10/20/17 10/20/17 10/20/17 Range/Units 06:31 06:31 06:56 Neutrophils # 8.6 H (1.3-7.7) k/uL Lymphocytes # 0.7 L (1.0-4.8) k/uL POC Glucose (mg/dL) 137 H (75-99) mg/dL Calcium 8.0 L (8.4-10.2) mg/dL Assessment and Plan (1) Morbid obesity Narrative/Plan: Start clear liquids. Ambulate. Reassess for discharge tomorrow. Current Visit: No Status: Acute Code(s): E66.01 - MORBID (SEVERE) OBESITY DUE TO EXCESS CALORIES SNOMED Code(s): 743446271
[2017-10-20 11:48] LABS: Glucose,Whole Blood 152 mg/dL (75-99)
[2017-10-20 17:15] LABS: Glucose,Whole Blood 133 mg/dL (75-99)
[2017-10-20 20:32] LABS: Glucose,Whole Blood 117 mg/dL (75-99)
--- NOTE | 2017-10-21 00:22 | P.CONS ---
History of Present Illness - Reason for Consult Consult date: 10/20/17 Medical management of diabetes - Chief Complaint Admitted for gastric sleeve surgery - History of Present Illness Patient is a 37-year-old female with known history of diabetes type 2 non- insulin-dependent currently on metformin and history of stage IV amelanotic melanoma with immunotherapy and morbid obesity was admitted to the hospital for elective sleeve gastrectomy. Patient tolerated the procedure very well. Currently denied any complaints of chest pain or shortness of breath. Patient does have some nausea. his vomiting. Patient otherwise had bowel movement. No fever no chills. No headache or dizziness or lightheadedness. Blood sugar is fairly controlled otherwise. Upper GI series shows no evidence of leak. Review of Systems Constitutional: Patient denies any fever or chills . No generalized weakness or weight loss. Abdomen: Patient denied nausea vomiting and diarrhea and abdominal pain. Cardiovascular: Patient denies any chest pain or short of breath no palpitations. Respiratory: patient denied any cough is from production. No shortness of breath Neurologic: Patient denied any numbness or tingling headache. Musculoskeletal: Patient denies any complaints of joint swelling or deformity. Skin: Negative Psychiatric: Negative Endocrine: No heat or cold intolerance. No recent weight gain. Genitourinary: No dysuria or hematuria. All other 14 point ROS negative except the above Past Medical History Past Medical History: Cancer, Diabetes Mellitus Additional Past Medical History / Comment(s): gestational diabetes x 2 ,kidney stone., Hx of stage 4 Amelanotic melanoma with immunotherapy with side effects of colitis & gastritis - last tx May 2016., hx of left leg cellulitis. , States she is on a Protein Shake diet for 2 weeks pre-op per instructions. History of Any Multi-Drug Resistant Organisms: MRSA Year Discovered:: 2007, 2010 MDRO Source:: hernia surgery, breast abscess Past Surgical History: Section, Hernia Repair Additional Past Surgical History / Comment(s): umbilical hernia repair with mesh .,mesh later removed d/t infection and hernia repaired again., colonoscopy/ egd Past Anesthesia/Blood Transfusion Reactions: Motion Sickness, Postoperative Nausea & Vomiting (PONV) Past Psychological History: Depression Additional Psychological History / Comment(s): . Smoking Status: Former smoker Past Alcohol Use History: None Reported Additional Past Alcohol Use History / Comment(s): started smoking at age 13 ( 1993) quit 2009. smoked 1 ppd. Past Drug Use History: None Reported - Past Family History Mother Family Medical History: No Reported History Additional Family Medical History / Comment(s): mother suffers from depression Father History Unknown: Yes Family Medical History: Myocardial Infarction ([place]) Additional Family Medical History / Comment(s): biological father had alcoholism and of a heart attack at age 61 Medications and Allergies Home Medications Medication Instructions Recorded Confirmed Type Citalopram Hydrobromide [CeleXA] 20 mg PO DAILY 06/09/16 10/19/17 History Folic Acid 0.8 mg PO DAILY 01/31/17 10/19/17 History metFORMIN HCL [Glucophage] 1,000 mg PO DAILY 01/31/17 10/19/17 History Bisacodyl [Dulcolax] 5 mg PO DAILY PRN #10 tablet. 10/19/17 Rx Hydrocodone/Acetaminophen [[place] 1 - 2 each PO Q4HR PRN #15 tab 10/19/17 Rx 5-325] Ondansetron Odt [Zofran Odt] 4 mg PO Q8HR PRN #9 tab 10/19/17 Rx Simethicone 40 mg/0.6 ml Drops 40 mg PO PCHS PRN #30 ml 10/19/17 Rx [Mylicon Drops] Allergies Allergy/AdvReac Type Severity Reaction Status Date / Time fluoxetine [From Prozac] Allergy Rash/Hives Verified 10/19/17 17:39 Physical Exam Vitals: Vital Signs Temp Pulse Pulse Pulse Resp BP Pulse Ox 10/20/17 10:22 80 10/20/17 10:15 76 10/20/17 10:09 98 10/20/17 10:06 22 88 L 10/20/17 07:45 98.4 F 85 16 131/74 95 10/20/17 05:31 92 93 L 10/20/17 00:26 98.6 F 92 18 146/81 94 L 10/20/17 00:12 92 L 10/19/17 20:16 98.4 F 96 16 134/85 96 10/19/17 18:40 93 L 10/19/17 17:13 98.3 F 78 12 126/86 91 L 10/19/17 16:31 73 16 138/78 94 L 10/19/17 16:16 82 16 140/76 94 L 10/19/17 16:00 79 16 138/70 93 L 10/19/17 15:45 81 16 141/69 93 L 10/19/17 15:30 72 16 132/69 94 L 10/19/17 15:15 73 16 132/69 95 10/19/17 15:00 76 16 130/69 96 10/19/17 14:44 97.9 F 82 16 143/73 94 L Intake and Output 10/19/17 10/20/17 10/20/17 22:59 06:59 14:59 Intake Total 1300 Output Total 800 400 Balance 500 -400 Intake: IV 550 Intake, IV Titration 750 Amount 0.9% NaCl with KCl 20 Meq 750 /l 1,000 ml @ 150 mls/hr IV .Q6H40M [facility] Rx#: [id number] Output: Urine 800 400 Other: Voiding Method Toilet Toilet # Voids 1 Weight 181.165 kg PHYSICAL EXAMINATION: Patient is lying in the bed comfortably, no acute distress, awake alert and oriented. Morbidly obese. HEENT: Normocephalic. Neck is supple. Pupils reactive. Nostrils clear. Oral cavity is moist. Ears reveal no drainage. Neck reveals no JVD, carotid bruits, or thyromegaly. CHEST EXAMINATION: Trachea is central. Symmetrical expansion. Lung wang clear to auscultation and percussion. CARDIAC: Normal S1, S2 with no gallops. No murmurs ABDOMEN: Soft. Mild tenderness. Bowel sounds present.. No organomegaly. No abdominal bruits. Extremities: reveal no edema. No clubbing or cyanosis Neurologically awake, alert, oriented x3 with well-coordinated movements. No focal deficits noted Skin: No rash or skin lesions. Psychiatric: Coperative. Nonsuicidal Musculoskeletal: No joint swelling or deformity. Normal range of motion. Results CBC & Chem 7: 10/20/17 06:31 10/20/17 06:31 Labs: Abnormal Lab Results - Last 24 Hours (Table) 10/19/17 10/19/17 10/19/17 Range/Units 12:14 15:29 21:31 Neutrophils # (1.3-7.7) k/uL Lymphocytes # (1.0-4.8) k/uL POC Glucose (mg/dL) 100 H 165 H 153 H (75-99) mg/dL Calcium (8.4-10.2) mg/dL 10/20/17 10/20/17 10/20/17 Range/Units 06:31 06:31 06:56 Neutrophils # 8.6 H (1.3-7.7) k/uL Lymphocytes # 0.7 L (1.0-4.8) k/uL POC Glucose (mg/dL) 137 H (75-99) mg/dL Calcium 8.0 L (8.4-10.2) mg/dL 10/20/17 Range/Units 11:46 Neutrophils # (1.3-7.7) k/uL Lymphocytes # (1.0-4.8) k/uL POC Glucose (mg/dL) 152 H (75-99) mg/dL Calcium (8.4-10.2) mg/dL Assessment and Plan Assessment: Status post elective sleeve gastrectomy on 10/19/2017 Diabetes type 2. Ocd-eogvzrb-akjjxrfes. Morbid obesity with BMI 64.5 Depression DVT prophylaxis Plan: patient will be continued on pain management with Dilaudid as per general surgery recommendations. Will hold metformin and continue the insulin sliding scale in the hospital. Incentive spirometry and ambulation and recommended. Otherwise continue the other home medications. Symptomatic management for nausea. We will continue to follow closely and further recommendations based on clinical course. Thank you for your consult. Time with Patient: Greater than 30
[2017-10-21] MEDS: INSULIN ASPART 100 UNIT/ML 1 ML 10 ML VIAL SQ SCH ×4 (02:48→18:01)
[2017-10-21] MEDS: 1: MVI, ADULT NO.4 WITH VIT K 10 ML, THIAMINE 100 MG, FOLIC ACID 1 MG, POTASSIUM CHLORID IV SCH ×12 (05:54→18:02)
[2017-10-21] MEDS: LACTATED RINGERS 1,000 ML IV SCH (05:55)
[2017-10-21 07:10] LABS: Glucose,Whole Blood 106 mg/dL (75-99)
[2017-10-21] MEDS: ALBUTEROL NEBULIZED 2.5 MG/3 ML INHALATION SCH ×4 (08:12→20:26)
--- NOTE | 2017-10-21 08:14 | P.PN ---
<Sun Salgado M - Last Filed: 10/21/17 08:07> Subjective Progress Note Date: 10/21/17 37-year-old female seen this morning. Patient states was up ambulating in the hallways last evening. Is tolerating clear liquid with less abdominal cramping this morning surgical dressing site dry afebrile temp 98.7 no labs pending on 2 L sats are 98%. Status post on the laparoscopic sleeve gastrectomy for morbid obesity BMI 64 Objective - Vital Signs Vital signs: Vital Signs Temp 98.7 F 10/21/17 00:00 Pulse 76 10/21/17 00:00 Resp 18 10/21/17 00:00 BP 144/92 10/21/17 00:00 Pulse Ox 98 10/21/17 00:00 Intake & Output 10/20/17 10/21/17 10/21/17 18:59 06:59 18:59 Intake Total 1350 Balance 1350 Intake: Intake, IV Titration 1350 Amount 0.9% NaCl with KCl 20 Meq 1350 /l 1,000 ml @ 100 mls/hr IV .[facility] Rx#: [id number] Other: Voiding Method Toilet Toilet # Voids 2 2 - Exam Physical exam Pleasant 37-year-old female sitting up in bed taking clear liquids and tolerating Lungs adequate air movement bilaterally no shortness of breath no cough no wheezing. Currently on 2 L sats are 94% Heart S1-S2 audible no murmur denying chest pain heart rate in the 70s to 80s Abdomen obese soft not distended nontender surgical dressings dry urinating no difficulty tolerating bariatric clear liquid diet - Labs CBC & Chem 7: 10/20/17 06:31 10/20/17 06:31 Labs: Abnormal Lab Results - Last 24 Hours (Table) 10/20/17 10/20/17 10/20/17 Range/Units 11:46 17:14 20:20 POC Glucose (mg/dL) 152 H 133 H 117 H (75-99) mg/dL 10/21/17 Range/Units 07:08 POC Glucose (mg/dL) 106 H (75-99) mg/dL Assessment and Plan Assessment: Impression Morbid obesity BMI 64 Status post October 19 sleeve gastrectomy for morbid obesity Hx of stage 4 Amelanotic melanoma with immunotherapy with side effects of colitis & gastritis - last tx May 2016., History of left lower leg cellulitis History of type 2 diabetes non-insulin Depressive disorder nonspecified Plan Continue postop bariatric care Continue bariatric clear diet Encourage oral intake Pain control Encourage ambulation DVT and GI prophylaxis IV fluid as ordered The above impression and plan of care have been discussed and directed by signing physician. Sun Salgado nurse practitioner acting as scribe for signing physician. <Anastacio Doe - Last Filed: 10/21/17 10:33> Objective - Vital Signs Vital signs: Vital Signs Temp 97.8 F 10/21/17 08:30 Pulse 73 10/21/17 08:30 Resp 16 10/21/17 08:30 BP 164/93 10/21/17 08:30 Pulse Ox 94 L 10/21/17 08:30 Intake & Output 10/20/17 10/21/17 10/21/17 18:59 06:59 18:59 Intake Total 1350 360 Balance 1350 360 Intake: Intake, IV Titration 1350 Amount 0.9% NaCl with KCl 20 Meq 1350 /l 1,000 ml @ 100 mls/hr IV .[facility] Rx#: [id number] Oral 360 Other: Voiding Method Toilet Toilet # Voids 2 2 - Labs CBC & Chem 7: 10/20/17 06:31 10/20/17 06:31 Labs: Abnormal Lab Results - Last 24 Hours (Table) 10/20/17 10/20/17 10/20/17 Range/Units 11:46 17:14 20:20 POC Glucose (mg/dL) 152 H 133 H 117 H (75-99) mg/dL 10/21/17 Range/Units 07:08 POC Glucose (mg/dL) 106 H (75-99) mg/dL Assessment and Plan Assessment: As above. Patient having some regurgitation and dysphagia symptoms today. Overall liquid intake poor at this point. Denies pain. Vital signs are stable. Continue to gradually consume bariatric clears. Hopefully discharge tomorrow. (1) Morbid obesity Current Visit: No Status: Acute Code(s): E66.01 - MORBID (SEVERE) OBESITY DUE TO EXCESS CALORIES SNOMED Code(s): 545975456
[2017-10-21] MEDS: ONDANSETRON 4 MG/2 ML VIAL IVP PRN (08:41)
[2017-10-21] MEDS: PANTOPRAZOLE 40 MG/10 ML VIAL IV SCH (08:41)
[2017-10-21] MEDS: ENOXAPARIN 60 MG/0.6 ML SYRINGE SQ SCH ×2 (08:43→21:14)
[2017-10-21 11:06] LABS: Glucose,Whole Blood 114 mg/dL (75-99)
[2017-10-21 17:12] LABS: Glucose,Whole Blood 97 mg/dL (75-99)
[2017-10-21 19:50] LABS: Glucose,Whole Blood 87 mg/dL (75-99)
--- NOTE | 2017-10-21 22:10 | P.PN ---
Subjective Progress Note Date: 10/21/17 Principal diagnosis: Status post sleeve gastrectomy Patient is a 37-year-old female with known history of diabetes type 2 non- insulin-dependent currently on metformin and history of stage IV amelanotic melanoma with immunotherapy and morbid obesity was admitted to the hospital for elective sleeve gastrectomy. Patient tolerated the procedure very well. Currently denied any complaints of chest pain or shortness of breath. Patient does have some nausea. his vomiting. Patient otherwise had bowel movement. No fever no chills. No headache or dizziness or lightheadedness. Blood sugar is fairly controlled otherwise. Upper GI series shows no evidence of leak. 10/21/2017 Patient denied any complaints of chest pain or shortness of breath. Abdominal pain is much better. Patient otherwise complaining of headache. No fever no chills. Tolerating liquid diet. Patient did have a small bowel movement otherwise no acute overnight issues. All other review of systems negative except the above Current medications reviewed Objective - Vital Signs Vital signs: Vital Signs Temp 98.3 F 10/21/17 14:42 Pulse 79 10/21/17 14:42 Resp 16 10/21/17 16:00 BP 118/75 10/21/17 14:42 Pulse Ox 90 L 10/21/17 14:42 Intake & Output 10/21/17 10/21/17 10/22/17 06:59 18:59 06:59 Intake Total 2350 680 Balance 2350 680 Intake: Intake, IV Titration 2350 Amount 0.9% NaCl with KCl 20 Meq 2350 /l 1,000 ml @ 100 mls/hr IV .[facility] Rx#: [id number] Oral 680 Other: Voiding Method Toilet # Voids 2 1 - Exam PHYSICAL EXAMINATION: Patient is lying in the bed comfortably, no acute distress, awake alert and oriented. Morbidly obese. HEENT: Normocephalic. Neck is supple. Pupils reactive. Nostrils clear. Oral cavity is moist. Ears reveal no drainage. Neck reveals no JVD, carotid bruits, or thyromegaly. CHEST EXAMINATION: Trachea is central. Symmetrical expansion. Lung wang clear to auscultation and percussion. CARDIAC: Normal S1, S2 with no gallops. No murmurs ABDOMEN: Soft. Mild tenderness. Bowel sounds present.. No organomegaly. No abdominal bruits. Extremities: reveal no edema. No clubbing or cyanosis Neurologically awake, alert, oriented x3 with well-coordinated movements. No focal deficits noted Skin: No rash or skin lesions. Psychiatric: Coperative. Nonsuicidal Musculoskeletal: No joint swelling or deformity. Normal range of motion. - Labs CBC & Chem 7: 10/20/17 06:31 10/20/17 06:31 Labs: Abnormal Lab Results - Last 24 Hours (Table) 10/20/17 10/21/17 10/21/17 Range/Units 20:20 07:08 11:05 POC Glucose (mg/dL) 117 H 106 H 114 H (75-99) mg/dL Assessment and Plan Assessment: Status post elective sleeve gastrectomy on 10/19/2017 Diabetes type 2. Nvk-cxcbvqz-[id number]. Morbid obesity with BMI 64.5 Depression DVT prophylaxis Plan: patient will be continued on pain management with Dilaudid as per general surgery recommendations. Will hold metformin and continue the insulin sliding scale in the hospital. Incentive spirometry and ambulation and recommended. Otherwise continue the other home medications. Symptomatic management for nausea. We will continue to follow closely and further recommendations based on clinical course. Thank you for your consult. Time with Patient: Greater than 30
[2017-10-22] MEDS: INSULIN ASPART 100 UNIT/ML 1 ML 10 ML VIAL SQ SCH ×2 (01:28→08:18)
[2017-10-22] MEDS: 1: MVI, ADULT NO.4 WITH VIT K 10 ML, THIAMINE 100 MG, FOLIC ACID 1 MG, POTASSIUM CHLORID IV SCH ×12 (01:29→11:10)
[2017-10-22] MEDS: LACTATED RINGERS 1,000 ML IV SCH (05:50)
[2017-10-22 07:38] LABS: Glucose,Whole Blood 83 mg/dL (75-99)
[2017-10-22] MEDS: ALBUTEROL NEBULIZED 2.5 MG/3 ML INHALATION SCH ×2 (07:53→11:58)
[2017-10-22] MEDS: PANTOPRAZOLE 40 MG/10 ML VIAL IV SCH (08:10)
[2017-10-22] MEDS: ENOXAPARIN 60 MG/0.6 ML SYRINGE SQ SCH (08:11)
[2017-10-22 08:38] VITALS: BP 116/70; PULSE 83; RESP 16; TEMP 98.4
--- NOTE | 2017-10-22 16:27 | P.PN ---
Progress Note - Text Progress Note Date: 10/22/17 The patient is resting comfortably in her bed. Apparently Dr. Peres is made Telfa rounds and has arranged for discharge. On exam her vital signs are stable. Her abdomen soft. Status post sleeve gastrectomy. Patient will be discharged home today. She'll follow-up in the bariatric clinic in 1-2 weeks.
--- NOTE | 2017-10-23 18:32 | PN ---
PROGRESS NOTE DATE OF SERVICE: 10/22/2017 This 37-year-old woman was admitted after elective gastric sleeve, has improved significantly. No chest pain. No palpitations. No fever. EXAM: Alert and oriented x3. Pulse is 83, blood pressure 116/70, respirations 16, temperature 98.2, pulse ox a 93% on 2L. HEENT: Conjunctivae normal. NECK: No jugular venous distention. CARDIOVASCULAR: S1, S2 muffled. RESPIRATORY: Breath sounds diminished in the bases. No rhonchi. No crackles. ABDOMEN: Soft, status post surgery. NERVOUS SYSTEM: Nonfocal. LABS: Noted. ASSESSMENT: 1. Status post sleeve gastrectomy. 2. Diabetes mellitus type 2. 3. Morbid obesity. 4. Depression. 5. Deep venous thrombosis prophylaxis. RECOMMENDATIONS AND DISCUSSION: Recommend to continue current medical management, continue monitoring and symptomatic treatment. Otherwise, incentive spirometry. Resume the home medications. Closely follow with primary physician in the outpatient setting. Further recommendations to follow. MMODL / IJN: [id number] /
== END 2017-10-22 13:25 | disposition home or self-care (01) | DRG 621 ==
LOC: 2ORMAIN 10:56 → 3SUR 16:45
PROVIDERS: ADMIT Surgery; ATTEND Surgery
PROC: 0DB64Z3 Excision of Stomach, Percutaneous Endoscopic Approach, Vertical (ICD-10-PCS; principal; 2017-10-19 13:00)
DX: E66.01 Morbid (severe) obesity due to excess calories (principal); E11.9 Type 2 diabetes mellitus without complications; F32.9 Major depressive disorder, single episode, unspecified; Z68.44 Body mass index [BMI] 60.0-69.9, adult; Z79.899 Other long term (current) drug therapy; Z79.84 Long term (current) use of oral hypoglycemic drugs; Z79.891 Long term (current) use of opiate analgesic; Z81.8 Family history of other mental and behavioral disorders; Z82.49 Family history of ischemic heart disease and other diseases of the circulatory system; Z85.820 Personal history of malignant melanoma of skin; Z86.32 Personal history of gestational diabetes; Z87.442 Personal history of urinary calculi; Z87.891 Personal history of nicotine dependence; Z86.14 Personal history of Methicillin resistant Staphylococcus aureus infection; Z88.8 Allergy status to other drugs, medicaments and biological substances
CPT/HCPCS: 36415; 74240; 80051; 80053; 81025; 82310; 82565; 83036; 83735; 84100; 84520; 85025; 88307; 94640; 94760; 94762

== ENCOUNTER 2017-10-30 00:16 | Inpatient (IN) | payer BC ==
[2017-10-30] MEDS ORDERED: SODIUM CHLORIDE 0.9% 1,000 ML IV STA ×2 (01:06)
[2017-10-30] MEDS ORDERED: MORPHINE SULFATE 4 MG/ML SYRINGE IV STA (01:06)
[2017-10-30] MEDS ORDERED: IOPAMIDOL-300 CONTRAST 30 ML VIAL (ORAL USE) PO PRN (01:06)
[2017-10-30] MEDS ORDERED: ONDANSETRON 4 MG/2 ML VIAL IVP STA ×2 (01:06→03:44)
--- NOTE | 2017-10-30 01:45 | ED ---
General Adult HPI - General Source: patient, RN notes reviewed, old records reviewed Mode of arrival: ambulatory Limitations: no limitations <Balbina Shaffer - Last Filed: 10/30/17 04:15> <Antoni Celeste - Last Filed: 10/30/17 06:05> - General Chief complaint: Abdominal Pain Stated complaint: ABD PAIN POST SURGERY Time Seen by Provider: 10/30/17 00:32 - History of Present Illness Initial comments: 37-year-old female presents emergency department today with chief complaint of nausea and vomiting and abdominal cramping. Patient ports she had gastric sleeve surgery by Dr. caldwell on December 19. Patient reports that today around 9: 00 this evening she was making her centimeter. She actually took a bite of macaroni to make sure was cool for somewhat eat it. Patient states that since that time she's had multiple episodes of vomiting. She reports that she has lower abdominal cramping radiating towards her back. She denies any fevers or chills. Denies any associated chest pain or shortness of breath. (Balbina Shaffer) - Related Data Home Medications Medication Instructions Recorded Confirmed Citalopram Hydrobromide [CeleXA] 20 mg PO DAILY 06/09/16 10/19/17 Folic Acid 0.8 mg PO DAILY 01/31/17 10/19/17 Previous Rx's Medication Instructions Recorded Bisacodyl [Dulcolax] 5 mg PO DAILY PRN #10 tablet. 10/19/17 Hydrocodone/Acetaminophen [[place] 1 - 2 each PO Q4HR PRN #15 tab 10/19/17 5-325] Ondansetron Odt [Zofran Odt] 4 mg PO Q8HR PRN #9 tab 10/19/17 Simethicone 40 mg/0.6 ml Drops 40 mg PO PCHS PRN #30 ml 10/19/17 [Mylicon Drops] Allergies Allergy/AdvReac Type Severity Reaction Status Date / Time fluoxetine [From Prozac] Allergy Rash/Hives Verified 10/30/17 00:22 Review of Systems ROS Other: All systems not noted in ROS Statement are negative. <Balbina Shaffer - Last Filed: 10/30/17 04:15> ROS Other: All systems not noted in ROS Statement are negative. <Antoni Celeste - Last Filed: 10/30/17 06:05> ROS Statement: Those systems with pertinent positive or pertinent negative responses have been documented in the HPI. 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 , States she is on a Protein Shake diet for 2 weeks pre-op per instructions. History of Any Multi-Drug Resistant Organisms: MRSA Date of last positivie culture/infection: 2007, 2010 MDRO Source:: hernia surgery, breast abscess Past Surgical History: Bariatric Surgery, Section, Hernia Repair Additional Past Surgical History / Comment(s): umbilical hernia repair with mesh .,mesh later removed d/t infection and hernia repaired again., colonoscopy/ egd Past Anesthesia/Blood Transfusion Reactions: Motion Sickness, Postoperative Nausea & Vomiting (PONV) Past Psychological History: Depression Smoking Status: Former smoker Past Alcohol Use History: None Reported Past Drug Use History: None Reported - Past Family History Mother Family Medical History: No Reported History Additional Family Medical History / Comment(s): mother suffers from depression Father History Unknown: Yes Family Medical History: Myocardial Infarction ([place]) Additional Family Medical History / Comment(s): biological father had alcoholism and of a heart attack at age 61 <Balbina Shaffer - Last Filed: 10/30/17 04:15> General Exam Limitations: no limitations Head exam: Present: atraumatic, normocephalic, normal inspection Eye exam: Present: normal appearance, PERRL, EOMI. Absent: scleral icterus, conjunctival injection, periorbital swelling ENT exam: Present: normal exam, mucous membranes moist Neck exam: Present: normal inspection. Absent: tenderness, meningismus, lymphadenopathy Respiratory exam: Present: normal lung sounds bilaterally. Absent: respiratory distress, wheezes, rales, rhonchi, stridor Cardiovascular Exam: Present: regular rate, normal rhythm, normal heart sounds. Absent: systolic murmur, diastolic murmur, rubs, gallop, clicks GI/Abdominal exam: Present: soft, tenderness (Diffuse lower abdominal tenderness. Patient is well-appearing incision sites over her abdomen.), normal bowel sounds. Absent: distended, guarding, rebound, rigid Extremities exam: Present: normal inspection, full ROM, normal capillary refill. Absent: tenderness, pedal edema, joint swelling, calf tenderness Back exam: Present: normal inspection Neurological exam: Present: alert, oriented X3, CN II-XII intact Psychiatric exam: Present: normal affect, normal mood <Balbina Shaffer - Last Filed: 10/30/17 04:15> <Antoni Celeste - Last Filed: 10/30/17 06:05> - General Exam Comments Initial Comments: 37-year-old female. Alert and oriented. No significant distress. (Balbina Shaffer) Vital Signs 10/30/17 10/30/17 10/30/17 00:19 03:55 04:49 Temperature 98.3 F Pulse Rate 72 75 88 Respiratory 16 16 16 Rate Blood Pressure 160/99 95/53 159/58 O2 Sat by Pulse 97 93 L 100 Oximetry Medical Decision Making - Lab Data Result diagrams: 10/30/17 00:39 10/30/17 00:39 - Radiology Data Radiology results: report reviewed <Balbina Shaffer - Last Filed: 10/30/17 04:15> - Lab Data Result diagrams: 10/30/17 00:39 10/30/17 00:39 <Antoni Celeste - Last Filed: 10/30/17 06:05> - Medical Decision Making This is a 37-year-old female presents emergency department today with onset of vomiting, and right-sided abdominal pain. She reports that radiates towards her back. No history of kidney stones. This time IV was established Patient did have a history of gastric sleeve surgery approximately [address] Rosado. She's been vomiting bile for the past 4 hours. At this time patient's urinalysis is positive for red blood cells. Urine culture obtained. Computed tomography scan was completed and shows evidence of an obstructed 1 cm ureteral stone in the right renal pelvis. (Balbina Shaffer) Patient is reevaluated after multiple doses of pain medication. She continues to have significant pain and nausea. CT reviewed, shows 1 cm obstructing right renal calculus with hydronephrosis, consistent with urinalysis. Case discussed with Dr. Mcneill, will admit for pain control and IV hydration . (Antoni Celeste) - Lab Data Lab Results 10/30/17 10/30/17 10/30/17 Range/Units 00:39 00:39 00:39 WBC 8.0 (3.8-10.6) k/uL RBC 4.98 (3.80-5.40) m/uL Hgb 14.1 (11.4-16.0) gm/dL Hct 43.2 (34.0-46.0) % MCV 86.9 (80.0-100.0) fL MCH 28.4 (25.0-35.0) pg MCHC 32.7 (31.0-37.0) g/dL RDW 14.1 (11.5-15.5) % Plt Count 243 (150-450) k/uL Neutrophils % 77 % Lymphocytes % 13 % Monocytes % 7 % Eosinophils % 1 % Basophils % 1 % Neutrophils # 6.2 (1.3-7.7) k/uL Lymphocytes # 1.1 (1.0-4.8) k/uL Monocytes # 0.6 (0-1.0) k/uL Eosinophils # 0.1 (0-0.7) k/uL Basophils # 0.0 (0-0.2) k/uL PT 11.0 (9.0-12.0) sec INR 1.1 (<1.2) APTT 25.4 (22.0-30.0) sec Sodium 141 (137-145) mmol/L Potassium 4.3 (3.5-5.1) mmol/L Chloride 104 (98-107) mmol/L Carbon Dioxide 23 (22-30) mmol/L Anion Gap 14 mmol/L BUN 13 (7-17) mg/dL Creatinine 0.60 (0.52-1.04) mg/dL Est GFR (CKD-EPI)AfAm >90 (>60 ml/min/1.73 sqM) Est GFR (CKD-EPI)NonAf >90 (>60 ml/min/1.73 sqM) Glucose 104 H (74-99) mg/dL Calcium 9.7 (8.4-10.2) mg/dL Total Bilirubin 0.4 (0.2-1.3) mg/dL AST 30 (14-36) U/L ALT 52 (9-52) U/L Alkaline Phosphatase 55 (38-126) U/L Total Protein 7.3 (6.3-8.2) g/dL Albumin 4.4 (3.5-5.0) g/dL Amylase 35 (30-110) U/L Lipase 31 (23-300) U/L Urine Color Urine Appearance (Clear) Urine pH (5.0-8.0) Ur Specific [place] (1.001-1.035) Urine Protein (Negative) Urine Glucose (UA) (Negative) Urine Ketones (Negative) Urine Blood (Negative) Urine Nitrite (Negative) Urine Bilirubin (Negative) Urine Urobilinogen (<2.0) mg/dL Ur Leukocyte Esterase (Negative) Urine RBC (0-5) /hpf Urine WBC (0-5) /hpf Ur Squamous Epith Cells (0-4) /hpf Urine Bacteria (None) /hpf Hyaline Casts (0-2) /lpf Urine Mucus (None) /hpf Urine HCG, Qual (Not Detectd) 10/30/17 10/30/17 Range/Units 01:55 01:55 WBC (3.8-10.6) k/uL RBC (3.80-5.40) m/uL Hgb (11.4-16.0) gm/dL Hct (34.0-46.0) % MCV (80.0-100.0) fL MCH (25.0-35.0) pg MCHC (31.0-37.0) g/dL RDW (11.5-15.5) % Plt Count (150-450) k/uL Neutrophils % % Lymphocytes % % Monocytes % % Eosinophils % % Basophils % % Neutrophils # (1.3-7.7) k/uL Lymphocytes # (1.0-4.8) k/uL Monocytes # (0-1.0) k/uL Eosinophils # (0-0.7) k/uL Basophils # (0-0.2) k/uL PT (9.0-12.0) sec INR (<1.2) APTT (22.0-30.0) sec Sodium (137-145) mmol/L Potassium (3.5-5.1) mmol/L Chloride (98-107) mmol/L Carbon Dioxide (22-30) mmol/L Anion Gap mmol/L BUN (7-17) mg/dL Creatinine (0.52-1.04) mg/dL Est GFR (CKD-EPI)AfAm (>60 ml/min/1.73 sqM) Est GFR (CKD-EPI)NonAf (>60 ml/min/1.73 sqM) Glucose (74-99) mg/dL Calcium (8.4-10.2) mg/dL Total Bilirubin (0.2-1.3) mg/dL AST (14-36) U/L ALT (9-52) U/L Alkaline Phosphatase (38-126) U/L Total Protein (6.3-8.2) g/dL Albumin (3.5-5.0) g/dL Amylase (30-110) U/L Lipase (23-300) U/L Urine Color Yellow Urine Appearance Cloudy H (Clear) Urine pH 6.0 (5.0-8.0) Ur Specific [place] 1.025 (1.001-1.035) Urine Protein 1+ H (Negative) Urine Glucose (UA) Negative (Negative) Urine Ketones 4+ H (Negative) Urine Blood Large H (Negative) Urine Nitrite Negative (Negative) Urine Bilirubin Negative (Negative) Urine Urobilinogen 2.0 (<2.0) mg/dL Ur Leukocyte Esterase Trace H (Negative) Urine RBC >182 H (0-5) /hpf Urine WBC 13 H (0-5) /hpf Ur Squamous Epith Cells 34 H (0-4) /hpf Urine Bacteria Occasional H (None) /hpf Hyaline Casts 32 H (0-2) /lpf Urine Mucus Occasional H (None) /hpf Urine HCG, Qual Not Detected (Not Detectd) - Radiology Data Obstructing junk is at the right renal pelvis. Obstruction. Compared old CT scanner for 25. Stable incarcerated ventral hernia without evidence about structure. Recent surgery a small pneumoperitoneum. Hernias increase in size slightly compared old exam. (Balbina Shaffer) Disposition <Balbina Shaffer - Last Filed: 10/30/17 04:15> Is patient prescribed a controlled substance at d/c from ED?: No Decision to Admit Reason: Admit from EC Decision Date: 10/30/17 Decision Time: 05:05 <Antoni Celeste - Last Filed: 10/30/17 06:05> Clinical Impression: Calculus of kidney Disposition: ADMITTED IP TO THIS HOSP Condition: Stable Referrals: Mike Kahn MD [Primary Care Provider] - 1-2 days
[2017-10-30 02:02] LABS: Basophils % (A) 1 %; Eosinophils # (A) 0.1 k/uL (0-0.7); Eosinophils % (A) 1 %; HCT 43.2 % (34.0-46.0); HGB 14.1 gm/dL (11.4-16.0); Lymphocytes # (A) 1.1 k/uL (1.0-4.8); Lymphocytes % (A) 13 %; MCH 28.4 pg (25.0-35.0); MCHC 32.7 g/dL (31.0-37.0); MCV 86.9 fL (80.0-100.0); Mean Platelet Volume 8.4; Monocytes # (A) 0.6 k/uL (0-1.0); Monocytes % (A) 7 %; Neutrophils # (A) 6.2 k/uL (1.3-7.7); Neutrophils % (A) 77 %; Platelet Count 243 k/uL (150-450); RBC 4.98 m/uL (3.80-5.40); RDW 14.1 % (11.5-15.5)
[2017-10-30 02:17] LABS: ALT 52 U/L (9-52); AST 30 U/L (14-36); Albumin 4.4 g/dL (3.5-5.0); Alkaline Phosphatase 55 U/L (38-126); Amylase 35 U/L (30-110); Anion Gap 14 mmol/L; Blood Urea Nitrogen 13 mg/dL (7-17); Calcium 9.7 mg/dL (8.4-10.2); Carbon Dioxide 23 mmol/L (22-30); Chloride 104 mmol/L (98-107); Glucose 104 mg/dL (74-99); Lipase 31 U/L (23-300); Potassium 4.3 mmol/L (3.5-5.1); Sodium 141 mmol/L (137-145); Total Bilirubin 0.4 mg/dL (0.2-1.3); Total Protein 7.3 g/dL (6.3-8.2)
[2017-10-30 02:33] LABS: Appearance,Urine Cloudy (Clear); Bacteria,Urine Occasional /hpf; Bilirubin,Urine Negative (Negative); Blood,Urine Large (Negative); Color,Urine Yellow; Glucose,Urine (UA) Negative (Negative); Hyaline Casts,Urine 32 /lpf (0-2); Ketones,Urine 4+ (Negative); Leukocyte Esterase,Urine Trace (Negative); Mucus,Urine Occasional /hpf; Nitrite,Urine Negative (Negative); Protein,Urine 1+ (Negative); RBC,Urine >182 /hpf (0-5); Specific Gravity,Urine 1.025 (1.001-1.035); Squamous Epithelial Cell,Urine 34 /hpf (0-4); WBC,Urine 13 /hpf (0-5)
[2017-10-30 02:34] LABS: INR 1.1 (<1.2); Partial Thromboplastin Time 25.4 sec (22.0-30.0)
[2017-10-30] MEDS ORDERED: SODIUM CHLORIDE 0.9% 1,000 ML IV ONE (02:50)
--- NOTE | 2017-10-30 03:18 | CT ---
EXAMINATION TYPE: CT abdomen pelvis w con DATE OF EXAM: 10/30/2017 COMPARISON: 06/27/2017 HISTORY: Abdominal pain. Recent bariatric surgery. CT DLP: mGycm Automated exposure control for dose reduction was used. TECHNIQUE: Helical acquisition of images was performed from the lung bases through the pelvis. CONTRAST: The IV contrast was Isovue 100 mL. FINDINGS: The lung bases are clear of consolidation. There is no pleural effusion. There are surgical clips at the gastric fundus. Liver shows no focal defect. Spleen appears normal. There is no evidence of a gutierrez creatic mass. Gallbladder appears normal. Bile ducts are not dilated. There is small pneumoperitoneum. There is no adrenal mass. Kidneys show satisfactory contrast opacification. There is a 1 cm calcifica tion at the right renal hilum that is probably in the collecting system. There is some fullness of th e right renal pelvis. Left renal pelvis appears normal. There is mild right-sided hydronephrosis. There is no retroperitoneal adenopathy. There is no ascites. The uterus is anteverted. Bladder disten ds smoothly. I see no bony destructive process. There is no compression fracture. There is no evidenc e of a bowel obstruction. There is incarcerated ventral hernia that contains bowel. There is no evide nce of a bowel obstruction. IMPRESSION: THERE IS OBSTRUCTING CALCULUS AT THE RIGHT RENAL PELVIS. OBSTRUCTION APPEARS NEW COMPARED TO OLD CT S CAN OF 06/27/2017. THERE IS STABLE INCARCERATED VENTRAL HERNIA WITHOUT EVIDENCE OF A BOWEL OBSTRUCTION . RECENT SURGERY WITH SMALL PNEUMOPERITONEUM. VENTRAL HERNIA HAS INCREASED IN SIZE SLIGHTLY COMPARED TO OLD EXAM.
[2017-10-30] MEDS ORDERED: KETOROLAC 30 MG/ML 1 ML VIAL IVP STA (03:44)
[2017-10-30] MEDS ORDERED: HYDROmorphone 1 MG/ML 1 ML SYRINGE IVP STA (03:44)
[2017-10-30] MEDS ORDERED: KETOROLAC 30 MG/ML 1 ML VIAL IVP PRN (06:02)
[2017-10-30] MEDS ORDERED: ACETAMINOPHEN TAB 325 MG TAB PO PRN (06:02)
[2017-10-30] MEDS ORDERED: HYDROmorphone 1 MG/ML 1 ML SYRINGE IVP PRN ×2 (06:02)
[2017-10-30] MEDS ORDERED: NALOXONE 0.4 MG/ML 1 ML VIAL IV PRN (06:02)
[2017-10-30] MEDS ORDERED: ONDANSETRON 4 MG/2 ML VIAL IVP PRN (06:02)
[2017-10-30] MEDS ORDERED: SODIUM CHLORIDE 0.9% 1,000 ML IV SCH (06:15)
--- NOTE | 2017-10-30 08:57 | P.GSCN ---
History of Present Illness Consult date: 10/30/17 Reason for Consult: Post sleeve gastrectomy History of present illness: Patient well known to our service. Underwent recent sleeve gastrectomy 2 weeks ago. Call the office last night with complaints of right flank pain abdominal cramps and vomiting. Patient went to the ER for evaluation and CAT scan showing a proximal right ureteral stone. Patient states her pain is persisting in the right flank. She is scheduled for ureteroscopy by urology today. Nausea improved. Also had a recent hernia repair by Dr. Jackson in the CAT scan as showing possible recurrence although I suspect this is more a function of her pannus rather than a true hernia. There does appear to be a slight caliber change in the small bowel loops entering into that area however. P SBO remains within the differential. No inflammatory changes around the patient's sleeve site noted. Review of Systems The patient denies any acute changes in vision or hearing, no dysphagia or odynophagia, no chest pain or shortness of breath, no dysuria or hematuria, no headache, no runny nose, no rectal bleeding or melena, no unexplained weight loss Past Medical History Past Medical History: Cancer, Diabetes Mellitus Additional Past Medical History / Comment(s): Amelanotic melanoma stage IV- unknown primary-given immunotherapy and last dose was 05/2016-goes to [facility]/Dr. Herzog-pt has pet scans q 3 months and scans have been clear, NIDDM type II, kidney stones found on pet scan, R leg cellulitis. History of Any Multi-Drug Resistant Organisms: MRSA Year Discovered:: 2007, 2010 MDRO Source:: hernia surgery, breast abscess Past Surgical History: Bariatric Surgery, Section, Hernia Repair Additional Past Surgical History / Comment(s): 10/19/17 lap gastric sleeve, umbilical hernia repair with mesh .,mesh later removed d/t infection and hernia repaired again., colonoscopy/egd Past Anesthesia/Blood Transfusion Reactions: Motion Sickness, Postoperative Nausea & Vomiting (PONV) Smoking Status: Former smoker - Past Family History Mother Family Medical History: No Reported History Additional Family Medical History / Comment(s): mother suffers from depression Father History Unknown: Yes Family Medical History: Myocardial Infarction ([place]) Additional Family Medical History / Comment(s): biological father had alcoholism and of a heart attack at age 61 Medications and Allergies Home Medications Medication Instructions Recorded Confirmed Type Citalopram Hydrobromide [CeleXA] 20 mg PO DAILY 06/09/16 10/30/17 History Folic Acid 0.8 mg PO DAILY 01/31/17 10/30/17 History Bisacodyl [Dulcolax] 5 mg PO DAILY PRN #10 tablet. 10/19/17 10/30/17 Rx Hydrocodone/Acetaminophen [[place] 1 - 2 each PO Q4HR PRN #15 tab 10/19/17 Rx 5-325] Ondansetron Odt [Zofran Odt] 4 mg PO Q8HR PRN #9 tab 10/19/17 10/30/17 Rx Simethicone 40 mg/0.6 ml Drops 40 mg PO PCHS PRN #30 ml 10/19/17 10/30/17 Rx [Mylicon Drops] Allergies Allergy/AdvReac Type Severity Reaction Status Date / Time fluoxetine [From Prozac] Allergy Rash/Hives Verified 10/30/17 06:59 Surgical - Exam Vital Signs Temp Pulse Resp BP Pulse Ox 98.3 F 72 16 160/99 97 10/30/17 00:19 10/30/17 00:19 10/30/17 00:19 10/30/17 00:19 10/30/17 00:19 Physical exam: General: Well-developed, well-nourished HEENT: Normocephalic, sclerae nonicteric Abdomen: Nontender, nondistended Extremities: No edema Neuro: Alert and oriented Results - Labs 10/30/17 00:39 10/30/17 00:39 Abnormal Lab Results - Last 24 Hours (Table) 10/30/17 10/30/17 Range/Units 00:39 01:55 Glucose 104 H (74-99) mg/dL Urine Appearance Cloudy H (Clear) Urine Protein 1+ H (Negative) Urine Ketones 4+ H (Negative) Urine Blood Large H (Negative) Ur Leukocyte Esterase Trace H (Negative) Urine RBC >182 H (0-5) /hpf Urine WBC 13 H (0-5) /hpf Ur Squamous Epith Cells 34 H (0-4) /hpf Urine Bacteria Occasional H (None) /hpf Hyaline Casts 32 H (0-2) /lpf Urine Mucus Occasional H (None) /hpf Diabetes panel 10/30/17 Range/Units 00:39 Sodium 141 (137-145) mmol/L Potassium 4.3 (3.5-5.1) mmol/L Chloride 104 (98-107) mmol/L Carbon Dioxide 23 (22-30) mmol/L BUN 13 (7-17) mg/dL Creatinine 0.60 (0.52-1.04) mg/dL Glucose 104 H (74-99) mg/dL Calcium 9.7 (8.4-10.2) mg/dL AST 30 (14-36) U/L ALT 52 (9-52) U/L Alkaline Phosphatase 55 (38-126) U/L Total Protein 7.3 (6.3-8.2) g/dL Albumin 4.4 (3.5-5.0) g/dL Calcium panel 10/30/17 Range/Units 00:39 Calcium 9.7 (8.4-10.2) mg/dL Albumin 4.4 (3.5-5.0) g/dL Pituitary panel 10/30/17 Range/Units 00:39 Sodium 141 (137-145) mmol/L Potassium 4.3 (3.5-5.1) mmol/L Chloride 104 (98-107) mmol/L Carbon Dioxide 23 (22-30) mmol/L BUN 13 (7-17) mg/dL Creatinine 0.60 (0.52-1.04) mg/dL Glucose 104 H (74-99) mg/dL Calcium 9.7 (8.4-10.2) mg/dL Adrenal panel 10/30/17 Range/Units 00:39 Sodium 141 (137-145) mmol/L Potassium 4.3 (3.5-5.1) mmol/L Chloride 104 (98-107) mmol/L Carbon Dioxide 23 (22-30) mmol/L BUN 13 (7-17) mg/dL Creatinine 0.60 (0.52-1.04) mg/dL Glucose 104 H (74-99) mg/dL Calcium 9.7 (8.4-10.2) mg/dL Total Bilirubin 0.4 (0.2-1.3) mg/dL AST 30 (14-36) U/L ALT 52 (9-52) U/L Alkaline Phosphatase 55 (38-126) U/L Total Protein 7.3 (6.3-8.2) g/dL Albumin 4.4 (3.5-5.0) g/dL Assessment and Plan (1) Morbid obesity Narrative/Plan: Agree with plans for ureteroscopy today. Will follow with you. Current Visit: No Status: Acute Code(s): E66.01 - MORBID (SEVERE) OBESITY DUE TO EXCESS CALORIES OMED Code(s): 790308481
[2017-10-30] MEDS ORDERED: IV FLUID CONTINUATION 1,000 ML IV ONE (10:19)
[2017-10-30 10:26] LABS: Glucose,Whole Blood 100 mg/dL (75-99)
--- NOTE | 2017-10-30 10:43 | P.GSHP ---
History of Present Illness H&P Date: 10/30/17 Chief Complaint: Right ureteral calculus The patient is a 37-year-old female with a history of moribund obesity who underwent a gastric sleeve on 10/19/2017. She says she was doing well until approximately 10 PM last night when she experienced right flank pain associated with nausea and vomiting. The pain persisted and she was directed to come to the emergency room for evaluation. Noncontrast computed tomography scan of the abdomen and pelvis identified a 6 x 8 mm calculus in the proximal right ureter with mild to moderate right hydronephrosis. The patient's pain was treated with morphine and then Dilaudid. I was contacted by the emergency room physician at approximately 6 AM and it was elected to admit her for pain control and treatment of the calculus. Since that time she says her pain has decreased. The patient has no personal history of urolithiasis or gross hematuria. Her family history is significant in that her mother has had kidney stones. The patient has no history of recurrent urinary tract infection. - Constitutional Constitutional: Denies chills, Denies fever - Cardiovascular Cardiovascular: Denies chest pain, Denies orthopnea - Respiratory Respiratory: Denies cough, Denies wheezing - Gastrointestinal Gastrointestinal: Reports as per HPI - Genitourinary (Female) Genitourinary: Reports as per HPI Past Medical History Past Medical History: Cancer, Diabetes Mellitus (The patient says she was on metformin prior to her gastric sleeve but her diabetes has been controlled with diet only since then.) Additional Past Medical History / Comment(s): Amelanotic melanoma stage IV- unknown primary-given immunotherapy and last dose was 05/2016-goes to [facility]/Dr. Herzog-pt has pet scans q 3 months and scans have been clear, NIDDM type II, kidney stones found on pet scan, R leg cellulitis. History of Any Multi-Drug Resistant Organisms: MRSA Date of last positivie culture/infection: 2007, 2010 MDRO Source:: hernia surgery, breast abscess Past Surgical History: Bariatric Surgery, Section, Hernia Repair Additional Past Surgical History / Comment(s): 10/19/17 lap gastric sleeve, umbilical hernia repair with mesh .,mesh later removed d/t infection and hernia repaired again., colonoscopy/egd Past Anesthesia/Blood Transfusion Reactions: Motion Sickness, Postoperative Nausea & Vomiting (PONV) Smoking Status: Former smoker - Past Family History Mother Family Medical History: No Reported History Additional Family Medical History / Comment(s): mother suffers from depression Father History Unknown: Yes Family Medical History: Myocardial Infarction ([place]) Additional Family Medical History / Comment(s): biological father had alcoholism and of a heart attack at age 61 Medications and Allergies Home Medications Medication Instructions Recorded Confirmed Type Citalopram Hydrobromide [CeleXA] 20 mg PO DAILY 06/09/16 10/30/17 History Folic Acid 0.8 mg PO DAILY 01/31/17 10/30/17 History Bisacodyl [Dulcolax] 5 mg PO DAILY PRN #10 tablet. 10/19/17 10/30/17 Rx Hydrocodone/Acetaminophen [[place] 1 - 2 each PO Q4HR PRN #15 tab 10/19/17 Rx 5-325] Ondansetron Odt [Zofran Odt] 4 mg PO Q8HR PRN #9 tab 10/19/17 10/30/17 Rx Simethicone 40 mg/0.6 ml Drops 40 mg PO PCHS PRN #30 ml 10/19/17 10/30/17 Rx [Mylicon Drops] Allergies Allergy/AdvReac Type Severity Reaction Status Date / Time fluoxetine [From Prozac] Allergy Rash/Hives Verified 10/30/17 10:31 Surgical - Exam Vital Signs Temp Pulse Resp BP Pulse Ox 98.3 F 72 16 160/99 97 10/30/17 00:19 10/30/17 00:19 10/30/17 00:19 10/30/17 00:19 10/30/17 00:19 - General well developed, well nourished, no distress, obese (Moribund obesity) - ENT no hearing loss - Respiratory normal expansion, normal respiratory effort, clear to auscultation - Cardiovascular Rhythm: regular Abnormal Heart Sounds: no systolic murmur, no diastolic murmur - Abdomen Abdomen: soft, non tender, no organomegaly Results - Labs 10/30/17 00:39 10/30/17 00:39 Abnormal Lab Results - Last 24 Hours (Table) 10/30/17 10/30/17 10/30/17 Range/Units 00:39 01:55 10:25 Glucose 104 H (74-99) mg/dL POC Glucose (mg/dL) 100 H (75-99) mg/dL Urine Appearance Cloudy H (Clear) Urine Protein 1+ H (Negative) Urine Ketones 4+ H (Negative) Urine Blood Large H (Negative) Ur Leukocyte Esterase Trace H (Negative) Urine RBC >182 H (0-5) /hpf Urine WBC 13 H (0-5) /hpf Ur Squamous Epith Cells 34 H (0-4) /hpf Urine Bacteria Occasional H (None) /hpf Hyaline Casts 32 H (0-2) /lpf Urine Mucus Occasional H (None) /hpf Diabetes panel 10/30/17 Range/Units 00:39 Sodium 141 (137-145) mmol/L Potassium 4.3 (3.5-5.1) mmol/L Chloride 104 (98-107) mmol/L Carbon Dioxide 23 (22-30) mmol/L BUN 13 (7-17) mg/dL Creatinine 0.60 (0.52-1.04) mg/dL Glucose 104 H (74-99) mg/dL Calcium 9.7 (8.4-10.2) mg/dL AST 30 (14-36) U/L ALT 52 (9-52) U/L Alkaline Phosphatase 55 (38-126) U/L Total Protein 7.3 (6.3-8.2) g/dL Albumin 4.4 (3.5-5.0) g/dL Calcium panel 10/30/17 Range/Units 00:39 Calcium 9.7 (8.4-10.2) mg/dL Albumin 4.4 (3.5-5.0) g/dL Pituitary panel 10/30/17 Range/Units 00:39 Sodium 141 (137-145) mmol/L Potassium 4.3 (3.5-5.1) mmol/L Chloride 104 (98-107) mmol/L Carbon Dioxide 23 (22-30) mmol/L BUN 13 (7-17) mg/dL Creatinine 0.60 (0.52-1.04) mg/dL Glucose 104 H (74-99) mg/dL Calcium 9.7 (8.4-10.2) mg/dL Adrenal panel 10/30/17 Range/Units 00:39 Sodium 141 (137-145) mmol/L Potassium 4.3 (3.5-5.1) mmol/L Chloride 104 (98-107) mmol/L Carbon Dioxide 23 (22-30) mmol/L BUN 13 (7-17) mg/dL Creatinine 0.60 (0.52-1.04) mg/dL Glucose 104 H (74-99) mg/dL Calcium 9.7 (8.4-10.2) mg/dL Total Bilirubin 0.4 (0.2-1.3) mg/dL AST 30 (14-36) U/L ALT 52 (9-52) U/L Alkaline Phosphatase 55 (38-126) U/L Total Protein 7.3 (6.3-8.2) g/dL Albumin 4.4 (3.5-5.0) g/dL - Imaging CT scan - abdomen: image reviewed Assessment and Plan (1) Right ureteral calculus Narrative/Plan: The patient had recent severe right flank pain secondary to a 6 by an 8 mm calculus located just distal to the right ureteropelvic junction. I discussed further observation versus ureteroscopy with lithotripsy. I do not feel that ESWL would be a reasonable option due to her moribund obesity. The patient says that she would prefer operative treatment via ureteroscopy and this will be performed later today. She is aware of the operative risks which include the possibility of a double-J catheter postop due to ureteral edema. Current Visit: Yes Status: Acute Code(s): N20.1 - CALCULUS OF URETER SNOMED Code(s): 82602378
[2017-10-30 11:42] VITALS: BMI 62.6
[2017-10-30] MEDS ORDERED: LACTATED RINGERS 1,000 ML IV ONE (12:34)
--- NOTE | 2017-10-30 13:26 | P.OP ---
Date of Procedure: 10/30/17 Preoperative Diagnosis: Proximal right ureteral calculus Postoperative Diagnosis: Proximal right ureteral calculus Procedure(s) Performed: Cystoscopy with right ureteroscopy lithotripsy and placement of right double-J catheter Anesthesia: ADIS Surgeon: Brice Mcneill Estimated Blood Loss (ml): 0 Pathology: other (Right ureteral calculus fragments) Condition: stable Disposition: PACU Indications for Procedure: The patient is a 37-year-old female admitted early this morning with severe right flank pain secondary to a 6 x 8 mm calculus which had become obstructed in the proximal right ureter. The patient has moribund obesity and ESWL is not a treatment option for the calculus. After reviewing treatment options the patient has elected to proceed with right ureteroscopy and lithotripsy. Description of Procedure: The patient was taken to the operating suite where adequate general anesthesia via orotracheal intubation was instituted. The patient was placed in the dorsal lithotomy position with her legs suspended from padded Desmond stirrups. The genitalia was prepped with Betadine solution and draped in sterile fashion. The 17-Tuvaluan cystoscope sheath with obturator was passed through the urethra and into the bladder. The bladder was examined using the 30 lens. Both ureteral orifices were of normal location and configuration. The bladder was free of tumor foreign body and diverticulum. A 0.035 Glidewire was advanced through the right ureteral orifice and using fluoroscopy the Glidewire was then advanced up to the region of the renal pelvis. The cystoscope was withdrawn leaving the Glidewire in place. A 13-Tuvaluan ureteral reentry sheath with 11- Tuvaluan obturator was advanced over the Glidewire and under fluoroscopic guidance positioned so that the proximal and of the reentry sheath was in the mid ureter. The obturator and Glidewire were withdrawn. Ureteroscopy was performed using the flexible ureteroscope. The mid ureter was unremarkable. The calculus was identified in the proximal right ureter. The calculus was then broken down into smaller fragments using the 365 fiber and the holmium laser at a setting of 600 mJ and 5 and 6 cps. The smaller fragments were removed from the ureter using a 1.9-Tuvaluan nitinol stone basket. Unfortunately a larger fragment migrated more proximally. I attempted to relocate the calculus into a calyx oozing the stone basket but I was unable to position it into an area that I could easily perform lithotripsy. The calculus was then reclosed located into the proximal ureter where lithotripsy was again performed and was eventually successful. All fragments were removed using the 1.9-Tuvaluan nitinol stone basket. Ureteroscope and reentry sheath were removed leaving a Glidewire in place. The 22-Tuvaluan cystoscope was backloaded onto the Glidewire and reintroduced into the bladder. A 6-Tuvaluan by 24 cm double-J catheter was advanced over the Glidewire and positioned so the proximal end coiled in the region of the renal pelvis and the distal and coiled in the bladder the bladder was drained and the procedure was terminated Patient tolerated procedure well and left the operative room awake and in satisfactory condition there was no blood loss. The patient will be discharged later today if she is comfortable. She will return to the office in 1 week for removal of the double-J catheter.
[2017-10-30 13:46] LABS: Glucose,Whole Blood 90 mg/dL (75-99)
--- NOTE | 2017-10-30 14:01 | FL ---
Fluoroscopy INDICATION: Pain FINDINGS: Fluoroscopy time: 21 seconds. Images obtained: 1. IMPRESSIONS: 1. Documentation of fluoroscopy.
[2017-10-30 15:04] VITALS: RESP 18; TEMP 97.3
[2017-10-30 17:15] VITALS: BP 158/79; PULSE 62
== END 2017-10-30 18:21 | disposition home or self-care (01) | DRG 669 ==
LOC: EC 00:16 → 4MS4W 06:02
PROVIDERS: ADMIT Urology; ATTEND Urology
PROC: 0TC68ZZ Extirpation of Matter from Right Ureter, Via Natural or Artificial Opening Endoscopic (ICD-10-PCS; principal; 2017-10-30 08:50)
PROC: 0T768DZ Dilation of Right Ureter with Intraluminal Device, Via Natural or Artificial Opening Endoscopic (ICD-10-PCS; 2017-10-30 08:50)
DX: N13.2 Hydronephrosis with renal and ureteral calculous obstruction (principal); Z68.44 Body mass index [BMI] 60.0-69.9, adult; E66.01 Morbid (severe) obesity due to excess calories; E11.9 Type 2 diabetes mellitus without complications; Z79.899 Other long term (current) drug therapy; Z81.8 Family history of other mental and behavioral disorders; Z82.49 Family history of ischemic heart disease and other diseases of the circulatory system; Z85.820 Personal history of malignant melanoma of skin; Z86.32 Personal history of gestational diabetes; Z87.442 Personal history of urinary calculi; Z87.891 Personal history of nicotine dependence; Z98.84 Bariatric surgery status; Z84.1 Family history of disorders of kidney and ureter; Z81.1 Family history of alcohol abuse and dependence; Z86.14 Personal history of Methicillin resistant Staphylococcus aureus infection; Z88.8 Allergy status to other drugs, medicaments and biological substances
CPT/HCPCS: 36415; 74177; 80053; 81001; 81025; 82150; 82365; 83690; 85025; 85610; 85730; 87077; 87086; 87186; 96361; 96374; 96375; 96376; 99285

== ENCOUNTER 2017-12-10 15:21 | Inpatient (IN) | payer BC ==
[2017-12-10 16:45] LABS: Basophils % (A) 0 %; Eosinophils # (A) 0.1 k/uL (0-0.7); Eosinophils % (A) 1 %; HCT 45.4 % (34.0-46.0); HGB 14.6 gm/dL (11.4-16.0); Lymphocytes % (A) 14 %; MCH 28.1 pg (25.0-35.0); MCHC 32.1 g/dL (31.0-37.0); MCV 87.5 fL (80.0-100.0); Mean Platelet Volume 9.3; Monocytes # (A) 0.3 k/uL (0-1.0); Monocytes % (A) 4 %; Neutrophils # (A) 5.7 k/uL (1.3-7.7); Neutrophils % (A) 80 %; Platelet Count 169 k/uL (150-450); RBC 5.19 m/uL (3.80-5.40); RDW 14.5 % (11.5-15.5); WBC 7.1 k/uL (3.8-10.6)
[2017-12-10 16:46] LABS: Appearance,Urine Cloudy (Clear); Bilirubin,Urine Negative (Negative); Blood,Urine Negative (Negative); Color,Urine Yellow; Glucose,Urine (UA) Negative (Negative); Ketones,Urine 4+ (Negative); Leukocyte Esterase,Urine Small (Negative); Mucus,Urine Few /hpf; Nitrite,Urine Negative (Negative); Protein,Urine Trace (Negative); RBC,Urine <1 /hpf (0-5); Specific Gravity,Urine 1.022 (1.001-1.035); Squamous Epithelial Cell,Urine 9 /hpf (0-4); WBC,Urine 3 /hpf (0-5)
[2017-12-10 16:57] LABS: ALT 91 U/L (9-52); AST 76 U/L (14-36); Albumin 4.4 g/dL (3.5-5.0); Alkaline Phosphatase 53 U/L (38-126); Amylase 39 U/L (30-110); Anion Gap 8 mmol/L; Blood Urea Nitrogen 9 mg/dL (7-17); Calcium 9.6 mg/dL (8.4-10.2); Carbon Dioxide 25 mmol/L (22-30); Chloride 106 mmol/L (98-107); Glucose 97 mg/dL (74-99); Lipase 23 U/L (23-300); Potassium 4.4 mmol/L (3.5-5.1); Sodium 139 mmol/L (137-145); Total Bilirubin 0.9 mg/dL (0.2-1.3); Total Protein 7.5 g/dL (6.3-8.2)
[2017-12-10] MEDS ORDERED: SODIUM CHLORIDE 0.9% 500 ML IV STA (18:54)
[2017-12-10] MEDS ORDERED: IOPAMIDOL-300 CONTRAST 30 ML VIAL (ORAL USE) PO PRN (18:54)
[2017-12-10] MEDS ORDERED: SODIUM CHLORIDE 0.9% 1,000 ML IV STA ×2 (18:54)
--- NOTE | 2017-12-10 18:54 | ED ---
Abdominal Pain HPI - General Chief Complaint: Abdominal Pain Stated Complaint: abdominal & back pain Time Seen by Provider: 12/10/17 18:53 Source: patient, RN notes reviewed, old records reviewed Mode of arrival: ambulatory Limitations: no limitations - History of Present Illness Initial Comments: This is a 37-year-old female to the ER for evaluation regarding abdominal pain abdominal pain with nausea and vomiting. Patient is recent gastric bypass. Patient of Dr. Peres. This about a month and half ago she has had no significant complications follow-up is been adequate. Last bowel movement 2 days ago no fevers no cough or congestion. Bowel pain is in 2 areas upper and lower, seems to be episodic and remittent. No modifying factors for pain currently she states it may be worse when she eats MD Complaint: abdominal pain -: days(s) (1) Location: periumbilical, epigastric Radiation: none Migration to: no migration Severity: moderate Severity scale (1-10): 6 Quality: cramping, aching Consistency: intermittent, now resolved Improves With: nothing Worsens With: eating Context: recent surgery/procedure Associated Symptoms: nausea, vomiting - Related Data Home Medications Medication Instructions Recorded Confirmed Citalopram Hydrobromide [CeleXA] 20 mg PO HS 06/09/16 12/10/17 Calcium Citrate 250 mg PO HS 12/10/17 12/10/17 Pedi Multivit No.25/Folic Acid 1 tab PO HS 12/10/17 12/10/17 [Flintstones Multivit Chew Tab] Allergies Allergy/AdvReac Type Severity Reaction Status Date / Time fluoxetine [From Prozac] Allergy Rash/Hives Verified 12/10/17 19:37 Review of Systems ROS Statement: Those systems with pertinent positive or pertinent negative responses have been documented in the HPI. ROS Other: All systems not noted in ROS Statement are negative. 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 Herzog-pt has pet scans q 3 months and scans have been clear, NIDDM type II, kidney stones found on pet scan, R leg cellulitis. PET scan showed B cervical lymph node possible involvement History of Any Multi-Drug Resistant Organisms: MRSA Date of last positivie culture/infection: 2007, 2010 MDRO Source:: hernia surgery, breast abscess Past Surgical History: Bariatric Surgery, Section, Hernia Repair Additional Past Surgical History / Comment(s): 10/19/17 lap gastric sleeve, umbilical hernia repair with mesh .,mesh later removed d/t infection and hernia repaired again., colonoscopy/egd. Uretha scope and lithotripsy 10/30/17. Past Anesthesia/Blood Transfusion Reactions: Motion Sickness, Postoperative Nausea & Vomiting (PONV) Past Psychological History: Depression Smoking Status: Former smoker Past Alcohol Use History: None Reported Past Drug Use History: None Reported - Past Family History Mother Family Medical History: No Reported History Additional Family Medical History / Comment(s): mother suffers from depression Father History Unknown: Yes Family Medical History: Myocardial Infarction ([place]) Additional Family Medical History / Comment(s): biological father had alcoholism and of a heart attack at age 61 General Exam Limitations: no limitations General appearance: alert, in no apparent distress, obese Head exam: Present: atraumatic, normocephalic, normal inspection Eye exam: Present: normal appearance, PERRL, EOMI. Absent: scleral icterus, conjunctival injection, periorbital swelling ENT exam: Present: normal exam, mucous membranes moist Neck exam: Present: normal inspection. Absent: tenderness, meningismus, lymphadenopathy Respiratory exam: Present: normal lung sounds bilaterally. Absent: respiratory distress, wheezes, rales, rhonchi, stridor Cardiovascular Exam: Present: regular rate, normal rhythm, normal heart sounds. Absent: systolic murmur, diastolic murmur, rubs, gallop, clicks GI/Abdominal exam: Present: soft, tenderness (Epigastric and suprapubic periumbilical abdominal pain, no tenderness), normal bowel sounds. Absent: distended, guarding, rebound, rigid Extremities exam: Present: normal inspection, full ROM, normal capillary refill. Absent: tenderness, pedal edema, joint swelling, calf tenderness Back exam: Present: normal inspection Neurological exam: Present: alert, oriented X3, CN II-XII intact Psychiatric exam: Present: normal affect, normal mood Skin exam: Present: warm, dry, intact, normal color. Absent: rash Course Vital Signs 12/10/17 12/10/17 12/10/17 15:36 18:56 19:15 Temperature 98.9 F 99.0 F Pulse Rate 69 62 66 Respiratory 18 18 18 Rate Blood Pressure 142/89 146/75 135/74 O2 Sat by Pulse 96 98 98 Oximetry 12/10/17 21:37 Temperature 98.6 F Pulse Rate 67 Respiratory 20 Rate Blood Pressure 131/70 O2 Sat by Pulse 96 Oximetry - Reevaluation(s) Reevaluation #1: 12/10/17 21:45 Medical records thoroughly reviewed Patient did have active vomiting after oral contrast tonight Reevaluation #2: 12/10/17 23:33 Spoke with surgery, aware of patient Medical Decision Making - Medical Decision Making 37-year-old female the ER for evasive Doppler, positive small bowel obstruction likely related to prior history of incarcerated hernia. We'll admit for nothing by mouth diet and pain control, surgical evaluation and treatment - Lab Data Result diagrams: 12/10/17 16:31 12/10/17 16:31 Lab Results 12/10/17 12/10/17 12/10/17 Range/Units 16:31 16:31 16:31 WBC 7.1 (3.8-10.6) k/uL RBC 5.19 (3.80-5.40) m/uL Hgb 14.6 (11.4-16.0) gm/dL Hct 45.4 (34.0-46.0) % MCV 87.5 (80.0-100.0) fL MCH 28.1 (25.0-35.0) pg MCHC 32.1 (31.0-37.0) g/dL RDW 14.5 (11.5-15.5) % Plt Count 169 (150-450) k/uL Neutrophils % 80 % Lymphocytes % 14 % Monocytes % 4 % Eosinophils % 1 % Basophils % 0 % Neutrophils # 5.7 (1.3-7.7) k/uL Lymphocytes # 1.0 (1.0-4.8) k/uL Monocytes # 0.3 (0-1.0) k/uL Eosinophils # 0.1 (0-0.7) k/uL Basophils # 0.0 (0-0.2) k/uL Sodium 139 (137-145) mmol/L Potassium 4.4 (3.5-5.1) mmol/L Chloride 106 (98-107) mmol/L Carbon Dioxide 25 (22-30) mmol/L Anion Gap 8 mmol/L BUN 9 (7-17) mg/dL Creatinine 0.52 (0.52-1.04) mg/dL Est GFR (CKD-EPI)AfAm >90 (>60 ml/min/1.73 sqM) Est GFR (CKD-EPI)NonAf >90 (>60 ml/min/1.73 sqM) Glucose 97 (74-99) mg/dL Calcium 9.6 (8.4-10.2) mg/dL Total Bilirubin 0.9 (0.2-1.3) mg/dL AST 76 H (14-36) U/L ALT 91 H (9-52) U/L Alkaline Phosphatase 53 (38-126) U/L Total Protein 7.5 (6.3-8.2) g/dL Albumin 4.4 (3.5-5.0) g/dL Amylase 39 (30-110) U/L Lipase 23 (23-300) U/L Urine Color Yellow Urine Appearance Cloudy H (Clear) Urine pH 6.0 (5.0-8.0) Ur Specific [place] 1.022 (1.001-1.035) Urine Protein Trace H (Negative) Urine Glucose (UA) Negative (Negative) Urine Ketones 4+ H (Negative) Urine Blood Negative (Negative) Urine Nitrite Negative (Negative) Urine Bilirubin Negative (Negative) Urine Urobilinogen 3.0 (<2.0) mg/dL Ur Leukocyte Esterase Small H (Negative) Urine RBC <1 (0-5) /hpf Urine WBC 3 (0-5) /hpf Ur Squamous Epith Cells 9 H (0-4) /hpf Urine Mucus Few H (None) /hpf - Radiology Data Radiology results: report reviewed (CT abdomen and pelvis positive for small bowel obstruction and incarcerated hernia), image reviewed Disposition Clinical Impression: SBO (small bowel obstruction), Morbid obesity, Incarcerated hernia Disposition: ADMITTED IP TO THIS [facility] Condition: Fair Is patient prescribed a controlled substance at d/c from ED?: No Referrals: Mike Kahn MD [Primary Care Provider] - 1-2 days
--- NOTE | 2017-12-10 20:37 | XR ---
EXAMINATION TYPE: XR KUB DATE OF EXAM: 12/10/2017 COMPARISON: NONE HISTORY: Abdominal pain TECHNIQUE: 2 views upright FINDINGS: There is no sign of intestinal obstruction or pneumoperitoneum. Fecal pattern is normal. Th ere are clips from tubal ligation. There are no pathologic calcifications over the kidneys. Lung base s are clear. IMPRESSION: Nonacute abdomen.
--- NOTE | 2017-12-10 21:47 | CT ---
EXAMINATION TYPE: CT abdomen pelvis w con DATE OF EXAM: 12/10/2017 COMPARISON: 10/30/2017 HISTORY: Mid abdominal and back pain x3 days. CT DLP: 2575 mGycm Automated exposure control for dose reduction was used. TECHNIQUE: Helical acquisition of images was performed from the lung bases through the pelvis. CONTRAST: Performed with Oral Contrast and with IV Contrast, patient injected with 100ml mL of Isovue 300. FINDINGS: Lung bases are clear. There is no pleural effusion. There is hiatal hernia. There surgical clips arou nd the stomach. Liver spleen pancreas gallbladder appear normal. Bile ducts are not dilated. There is no adrenal mass. Kidneys show satisfactory contrast opacification. There is no hydronephrosi s. Ureters are not dilated. There is 1 cm cortical cyst anterior left kidney. There is no evidence of renal mass. There is no retroperitoneal adenopathy there is no mesenteric adenopathy or edema. Bladder distends smoothly. There is no inguinal hernia. There is lower abdominal ventral hernia that contains loops of small bowel. There are multiple dilated loops of small bowel extending to the incar cerated ventral hernia. The distal small bowel is not dilated. Large bowel is not dilated. There is n o evidence of free air. There is no free fluid. Bony structures are intact. There is no lumbar compre ssion fracture. I see no bony destructive process. Small bowel is dilated up to 3.8 cm. There are mul tiple fluid levels. IMPRESSION: INCARCERATED LOWER ABDOMINAL VENTRAL HERNIA IS SIMILAR TO OLD EXAM. THERE IS EVIDENCE OF MECHANICAL S MALL BOWEL OBSTRUCTION THAT IS NEW COMPARED TO OLD EXAM. TRANSITION POINT IS THE HERNIA.
[2017-12-10] MEDS ORDERED: ONDANSETRON 4 MG/2 ML VIAL IVP PRN (23:33)
[2017-12-10] MEDS ORDERED: MORPHINE SULFATE 4 MG/ML SYRINGE IVP PRN (23:33)
[2017-12-10] MEDS ORDERED: MORPHINE SULFATE 4 MG/ML SYRINGE IVP STA (23:33)
[2017-12-11 00:54] VITALS: BMI 57.8
[2017-12-11] MEDS: ENOXAPARIN 40 MG/0.4 ML SYRINGE SQ SCH (08:44)
--- NOTE | 2017-12-11 12:10 | P.GSCN ---
History of Present Illness Consult date: 12/11/17 Reason for Consult: Abdominal pain, hernia History of present illness: The patient's a 37-year-old female who had undergone a robotic hernia repair by myself earlier in the year. She subsequently underwent a laparoscopic sleeve resection by Dr. Doe about 2 months ago. She began noticing a upset stomach over the weekend. She thought it was something she ate. Progressively got worse. And so she went into the emergency department yesterday. The pain was occurring about every 20 minutes. She's had none today. The pain had been worsening when she would try to eat. No vomiting. Normal bowel movement weekend. She is feeling better today. She has been nothing by mouth. The hernia had been repaired twice in the past. 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 Herzog-pt has pet scans q 3 months and scans have been clear, NIDDM type II, kidney stones found on pet scan, R leg cellulitis. PET scan showed B cervical lymph node possible involvement History of Any Multi-Drug Resistant Organisms: MRSA Year Discovered:: 2007, 2010 MDRO Source:: hernia surgery, breast abscess Past Surgical History: Bariatric Surgery, Section, Hernia Repair Additional Past Surgical History / Comment(s): 10/19/17 lap gastric sleeve, umbilical hernia repair with mesh .,mesh later removed d/t infection and hernia repaired again., colonoscopy/egd. Uretha scope and lithotripsy 10/30/17. Past Anesthesia/Blood Transfusion Reactions: Motion Sickness, Postoperative Nausea & Vomiting (PONV) Past Psychological History: Depression Additional Psychological History / Comment(s): Pt resides with her spouse and their 2 children, ages 3 and 10yrs. Pt is independent. Smoking Status: Former smoker Past Alcohol Use History: None Reported Additional Past Alcohol Use History / Comment(s): started smoking at age 13 ( 1993) quit 2009. smoked 1 ppd. Past Drug Use History: None Reported - Past Family History Mother Family Medical History: No Reported History Additional Family Medical History / Comment(s): mother suffers from depression Father History Unknown: Yes Family Medical History: Myocardial Infarction ([place]) Additional Family Medical History / Comment(s): biological father had alcoholism and of a heart attack at age 61 Medications and Allergies Home Medications Medication Instructions Recorded Confirmed Type Citalopram Hydrobromide [CeleXA] 20 mg PO HS 06/09/16 12/10/17 History Calcium Citrate 250 mg PO HS 12/10/17 12/10/17 History Pedi Multivit No.25/Folic Acid 1 tab PO HS 12/10/17 12/10/17 History [Flintstones Multivit Chew Tab] Allergies Allergy/AdvReac Type Severity Reaction Status Date / Time fluoxetine [From Prozac] Allergy Rash/Hives Verified 12/10/17 19:37 Surgical - Exam Osteopathic Statement: *. No significant issues noted on an osteopathic structural exam other than those noted in the History and Physical/Consult. Vital Signs Temp Pulse Resp BP Pulse Ox 98.9 F 69 18 142/89 96 12/10/17 15:36 12/10/17 15:36 12/10/17 15:36 12/10/17 15:36 12/10/17 15:36 - General Morbidly obese no distress - Eyes normal ocular movement - ENT normal mucosa, no hearing loss - Neck trachea midline - Respiratory normal expansion, normal respiratory effort, clear to auscultation - Cardiovascular Rhythm: regular - Abdomen There is some fullness in the right lower quadrant but no definite hernia is palpated while she is supine. Abdomen: soft, tender (Very minimal right-sided tenderness) Results - Labs 12/10/17 16:31 12/10/17 16:31 Abnormal Lab Results - Last 24 Hours (Table) 12/10/17 12/10/17 Range/Units 16:31 16:31 AST 76 H (14-36) U/L ALT 91 H (9-52) U/L Urine Appearance Cloudy H (Clear) Urine Protein Trace H (Negative) Urine Ketones 4+ H (Negative) Ur Leukocyte Esterase Small H (Negative) Ur Squamous Epith Cells 9 H (0-4) /hpf Urine Mucus Few H (None) /hpf Diabetes panel 12/10/17 Range/Units 16:31 Sodium 139 (137-145) mmol/L Potassium 4.4 (3.5-5.1) mmol/L Chloride 106 (98-107) mmol/L Carbon Dioxide 25 (22-30) mmol/L BUN 9 (7-17) mg/dL Creatinine 0.52 (0.52-1.04) mg/dL Glucose 97 (74-99) mg/dL Calcium 9.6 (8.4-10.2) mg/dL AST 76 H (14-36) U/L ALT 91 H (9-52) U/L Alkaline Phosphatase 53 (38-126) U/L Total Protein 7.5 (6.3-8.2) g/dL Albumin 4.4 (3.5-5.0) g/dL Calcium panel 12/10/17 Range/Units 16:31 Calcium 9.6 (8.4-10.2) mg/dL Albumin 4.4 (3.5-5.0) g/dL Pituitary panel 12/10/17 Range/Units 16:31 Sodium 139 (137-145) mmol/L Potassium 4.4 (3.5-5.1) mmol/L Chloride 106 (98-107) mmol/L Carbon Dioxide 25 (22-30) mmol/L BUN 9 (7-17) mg/dL Creatinine 0.52 (0.52-1.04) mg/dL Glucose 97 (74-99) mg/dL Calcium 9.6 (8.4-10.2) mg/dL Adrenal panel 12/10/17 Range/Units 16:31 Sodium 139 (137-145) mmol/L Potassium 4.4 (3.5-5.1) mmol/L Chloride 106 (98-107) mmol/L Carbon Dioxide 25 (22-30) mmol/L BUN 9 (7-17) mg/dL Creatinine 0.52 (0.52-1.04) mg/dL Glucose 97 (74-99) mg/dL Calcium 9.6 (8.4-10.2) mg/dL Total Bilirubin 0.9 (0.2-1.3) mg/dL AST 76 H (14-36) U/L ALT 91 H (9-52) U/L Alkaline Phosphatase 53 (38-126) U/L Total Protein 7.5 (6.3-8.2) g/dL Albumin 4.4 (3.5-5.0) g/dL - Imaging CT scan - abdomen: report reviewed, image reviewed (It appears the hernia mesh has become disrupted on the right side of her abdomen with some incarcerated small bowel loops, no inflammatory change) Assessment and Plan (1) Incarcerated hernia Current Visit: Yes Status: Acute Code(s): K46.0 - UNSP ABDOMINAL HERNIA WITH OBSTRUCTION, WITHOUT GANGRENE SNOMED Code(s): 86011729 (2) Morbid obesity Current Visit: Yes Status: Acute Code(s): E66.01 - MORBID (SEVERE) OBESITY DUE TO EXCESS CALORIES SNOMED Code(s): 661434431 (3) Abdominal pain Current Visit: No Status: Acute Code(s): R10.9 - UNSPECIFIED ABDOMINAL PAIN SNOMED Code(s): 57657875 Plan: Symptomatically the patient is feeling better today. We had a long discussion regarding the success of hernia repair if her surgery was done now. Since her gastric sleeve was done relatively recently, she hasn't lost significant weight yet. Therefore successful hernia repair would be very low. The hernia was repaired earlier this year because of obstructive symptoms. At this point persistent obstructive symptoms would be the only indication for surgery. This would likely require removal of the prosthetic mesh. I would probably not attempt a definitive repair at that time. Therefore this point we'll give her an abdominal binder and start her on a diet. If she is able to tolerate food without increased pain, nausea, vomiting then we would try to delay any hernia surgery until she's had significant weight loss. Questions were encouraged and answered.
[2017-12-11] MEDS ORDERED: ACETAMINOPHEN TAB 325 MG TAB PO PRN (19:47)
[2017-12-11] MEDS ORDERED: MELATONIN 3 MG TABLET PO PRN (19:47)
[2017-12-11] MEDS ORDERED: MAGNESIUM HYDROXIDE 2,400 MG/10 ML CUP PO PRN (19:47)
[2017-12-11] MEDS ORDERED: LACTULOSE 20 GM/30 ML CUP PO PRN (19:47)
[2017-12-11] MEDS ORDERED: ALPRAZolam 0.25 MG TAB PO PRN (19:47)
[2017-12-11] MEDS ORDERED: CALCIUM CARBONATE 500 MG CHEWABLE PO PRN (19:47)
[2017-12-11 20:08] VITALS: RESP 16
--- NOTE | 2017-12-11 20:54 | HP ---
HISTORY AND PHYSICAL DATE OF ADMISSION: DATE OF SERVICE: 12/11/17. PRESENTING COMPLAINT: Abdominal pain. HISTORY OF PRESENTING COMPLAINT: This morning Sun Salgado NP called me if I will switch the patient to my service as attending. The patient is admitted to surgical service last night, as there could be no surgical intervention done I accepted the patient to my service. This is a very pleasant 37-year-old patient of Dr. Kahn. The patient underwent laparoscopic gastric sleeve surgery on 10/19/[address] Doe. The patient had been doing well on a liquid diet, went out on Sunday with the , had a shrimp meal and hence, 3 days ago started having increasing abdominal pain in the upper mid abdomen. It was coming and going like cramping. The patient started having vomiting. There was no fever, no chills. The patient admitted for the same. The patient has previously had a hernia repair with mesh in place. The patient did have a CT scan of the abdomen. The patient is found to have a lower abdominal ventral hernia with loops of small bowel and there were multiple dilated loops of small bowel extending to the incarcerated ventral hernia. The patient had not had a bowel movement for 2 days, but did have a bowel movement last night. Also, multiple air-fluid levels. The patient was seen by Dr. Jackson earlier today. REVIEW OF SYSTEMS: CONSTITUTIONAL: Tired. HEENT: None. RESPIRATORY: None. CARDIOVASCULAR: None. GASTROINTESTINAL: As above. GENITOURINARY: None. MUSCULOSKELETAL: None. DERMATOLOGIC, HEMATOLOGIC, LYMPHATIC: None. PSYCHIATRY: None. NEUROLOGICAL: None. PAST MEDICAL HISTORY: Diabetes, not taking any medications anymore, non melanotic melanoma. The patient did get chemotherapy and the PET scan became negative. Subsequently, CT scan did show 2 lymph nodes in neck that will be followed up down the road. PAST SURGICAL HISTORY: , umbilical hernia repair with mesh. The mesh was later removed for infection and the hernia was repaired again. Urethroscope with lithotripsy, laparoscopic gastric sleeve on 10/19/17. PSYCH HISTORY: History of depression. SOCIAL HISTORY: . Lives with the 2 children. The patient smoked for about 6 years until stopped in 2009. No alcohol. FAMILY HISTORY: Mother has depression. HOME MEDICATIONS: 1. Flintstones multivitamin 1 tablet p.o. q.h.s. 2. Celexa 20 mg q.h.s. 3. Calcium citrate 250 mg q.h.s. ALLERGIES: To PROZAC. PHYSICAL EXAMINATION: Temperature 98.3, pulse 60, respiration 12, blood pressure 130/83, pulse ox 97% on room air. GENERAL APPEARANCE: Well built, BMI 57.8, sitting up, not in distress. EYES: Pupils equal. Conjunctivae normal. HEENT: External appearance of nose and ears normal. Oral cavity normal. NECK: JVD not raised. Mass not palpable. RESPIRATORY: Effort normal. Lungs, fair entry. CARDIOVASCULAR: 1st and 2nd sounds normal. No edema. ABDOMEN: Mild tenderness. No guarding or rigidity. Liver and spleen not palpable. LYMPHATIC: No lymph node palpable in neck or axillae. PSYCHIATRY: Alert and oriented x3. Mood and affect normal. NEUROLOGICAL: Pupils equal. Cranial nerves grossly intact. Power and sensation grossly intact. INVESTIGATIONS: White count 7.1, potassium 4.4, BUN and creatinine are normal. CT scan of the abdomen as above. Urine positive for ketone 4+. ASSESSMENT: 1. Acute small-bowel obstruction in the ventral hernia in a patient who has had prior surgical intervention for the same being managed conservatively by Surgery currently. 2. Morbid obesity, BMI 57.8. 3. Recent sleeve gastrectomy. 4. Ketonuria probably from decreased oral intake. PLAN: The patient has already lost 54 pounds since the surgery. The patient is seen by Dr. Jackson from General Surgery. She has put the patient on a clear liquid diet. Hoping that surgery can be postponed. We will see how the patient does and go from there. Check labs in the morning. MMODL / IJN: [id number] /
[2017-12-11] MEDS ORDERED: CALCIUM CARBONATE 500 MG CHEWABLE PO SCH (21:00)
[2017-12-11] MEDS ORDERED: CITALOPRAM HYDROBROMIDE 20 MG TAB PO SCH (21:00)
[2017-12-12 08:26] LABS: Basophils % (A) 1 %; Eosinophils # (A) 0.1 k/uL (0-0.7); Eosinophils % (A) 4 %; HCT 42.8 % (34.0-46.0); HGB 13.5 gm/dL (11.4-16.0); Lymphocytes # (A) 1.2 k/uL (1.0-4.8); Lymphocytes % (A) 30 %; MCH 27.8 pg (25.0-35.0); MCHC 31.5 g/dL (31.0-37.0); MCV 88.2 fL (80.0-100.0); Monocytes # (A) 0.3 k/uL (0-1.0); Monocytes % (A) 7 %; Neutrophils # (A) 2.3 k/uL (1.3-7.7); Neutrophils % (A) 57 %; Platelet Count 152 k/uL (150-450); RBC 4.85 m/uL (3.80-5.40); RDW 14.7 % (11.5-15.5); WBC 4.1 k/uL (3.8-10.6)
[2017-12-12 08:41] LABS: Anion Gap 7 mmol/L; Blood Urea Nitrogen 5 mg/dL (7-17); Calcium 9.1 mg/dL (8.4-10.2); Carbon Dioxide 25 mmol/L (22-30); Chloride 109 mmol/L (98-107); Glucose 93 mg/dL (74-99); Potassium 4.2 mmol/L (3.5-5.1); Sodium 141 mmol/L (137-145)
[2017-12-12] MEDS: ENOXAPARIN 40 MG/0.4 ML SYRINGE SQ SCH (09:05)
--- NOTE | 2017-12-12 09:11 | P.PN ---
Subjective Progress Note Date: 12/12/17 Principal diagnosis: Recurrent ventral hernia, partial bowel traction The patient was started on clear liquids yesterday which she tolerated. She was advanced to her soft diet which is her normal postgastric sleeve diet. She is tolerating that without any pain, nausea, vomiting. She feels much better than admission. She's been ambulating. Objective - Vital Signs Vital signs: Vital Signs Temp 98.1 F 12/12/17 07:25 Pulse 52 L 12/12/17 07:25 Resp 16 12/12/17 07:25 BP 126/84 12/12/17 07:25 Pulse Ox 95 12/12/17 07:25 Intake & Output 12/11/17 12/12/17 12/12/17 18:59 06:59 18:59 Other: # Voids 1 1 1 # Bowel Movements 1 - Constitutional General appearance: Present: cooperative, no acute distress - Gastrointestinal Gastrointestinal Comment(s): Soft, obese, positive bowel sounds, mild tenderness without guarding or rebound - Labs CBC & Chem 7: 12/12/17 08:03 12/12/17 08:03 Labs: Abnormal Lab Results - Last 24 Hours (Table) 12/12/17 Range/Units 08:03 Chloride 109 H (98-107) mmol/L BUN 5 L (7-17) mg/dL Assessment and Plan (1) Incarcerated hernia Current Visit: Yes Status: Acute Code(s): K46.0 - UNSP ABDOMINAL HERNIA WITH OBSTRUCTION, WITHOUT GANGRENE SNOMED Code(s): 11710235 (2) Morbid obesity Current Visit: Yes Status: Acute Code(s): E66.01 - MORBID (SEVERE) OBESITY DUE TO EXCESS CALORIES SNOMED Code(s): 178384496 (3) Abdominal pain Current Visit: No Status: Acute Code(s): R10.9 - UNSPECIFIED ABDOMINAL PAIN SNOMED Code(s): 51308079 (4) SBO (small bowel obstruction) Current Visit: Yes Status: Acute Code(s): K56.609 - UNSP INTESTNL OBST, UNSP TO PARTIAL VERSUS COMPLETE OBST SNOMED Code(s): 195115532 Plan: Clinically the patient's pain has improved. She is able to resume her normal post gastric sleeve diet. In my opinion if she is able to tolerate breakfast and lunch we could discharge her home. Then optimally when she loses significant weight she can present for an elective repair of the hernia which would be much more successful. She's discharged today on see her in the office in 1-2 weeks. Nurses are instructed to call she develops recurrent pain after eating.
[2017-12-12 11:59] VITALS: PULSE 63; TEMP 98.3
[2017-12-12 15:27] VITALS: BP 134/84
== END 2017-12-12 15:35 | disposition home or self-care (01) | DRG 394 ==
LOC: EC 15:21 → 6PED 23:34
PROVIDERS: ADMIT Hospitalist; ATTEND Hospitalist
DX: K43.0 Incisional hernia with obstruction, without gangrene (principal); Z68.43 Body mass index [BMI] 50.0-59.9, adult; E66.01 Morbid (severe) obesity due to excess calories; R82.4 Acetonuria; E11.9 Type 2 diabetes mellitus without complications; F32.9 Major depressive disorder, single episode, unspecified; Z79.899 Other long term (current) drug therapy; Z98.84 Bariatric surgery status; Z85.820 Personal history of malignant melanoma of skin; Z98.891 History of uterine scar from previous surgery; Z92.21 Personal history of antineoplastic chemotherapy; Z87.891 Personal history of nicotine dependence; Z87.442 Personal history of urinary calculi; Z86.14 Personal history of Methicillin resistant Staphylococcus aureus infection; Z81.8 Family history of other mental and behavioral disorders; Z82.49 Family history of ischemic heart disease and other diseases of the circulatory system; Z81.1 Family history of alcohol abuse and dependence; Z88.8 Allergy status to other drugs, medicaments and biological substances
CPT/HCPCS: 36415; 74018; 74177; 80048; 80053; 81001; 82150; 83690; 85025; 96360; 96361; 99285

== ENCOUNTER → 2017-12-25 | Outpatient (CLI) | payer BC ==
[2017-12-25 14:46] VITALS: BP 120/72; PULSE 77; RESP 16; TEMP 97.8; BMI 56.5
--- NOTE | 2017-12-25 15:14 | P.BASOAP ---
Subjective Progress Note Date: 12/25/17 Principal diagnosis: Morbid obesity Patient recently discharged after admission for lower abdominal pain. Patient was found to have exacerbation of her underlying incisional hernia. There appears to be some degree of hernia recurrence there. She also had a recent PET scan showing some adenopathy in the neck. Follow-up PET scan in February 01 ordered. Otherwise doing well. Denies nausea vomiting. No pain since discharge. She is keeping her food softer in nature. She admits that she has not been taking her vitamins properly recently. Good weight loss however. Objective - Vital Signs Vital signs: Vital Signs Temp 97.8 F 12/25/17 14:41 Pulse 77 12/25/17 14:41 Resp 16 12/25/17 14:41 BP 120/72 12/25/17 14:41 Pulse Ox Intake & Output 12/24/17 12/25/17 12/25/17 18:59 06:59 18:59 Weight 156.688 kg - Exam Abdomen: Soft, nontender, nondistended, hernia nonpalpable Assessment/Plan (1) Morbid obesity Narrative/Plan: Patient overall doing fairly well. Continue diet as tolerated at this point. Follow-up one month. Resume taking vitamin supplementation including vitamin D. Order 3 month labs next visit. Await follow-up PET scan. Plan: Date: 12/25/17 Initial Weight: 188.241 kg Initial BMI: 67.8 Current Weight: 156.688 kg Current BMI: 56.5 Type of Surgery: Total Volume in Band: Previous Volume: Volume Removed: Volume Added: Band Size:
== END | disposition home or self-care (01) ==
LOC: BARWHC3 14:26
PROVIDERS: ATTEND Surgery
DX: E66.01 Morbid (severe) obesity due to excess calories (principal); K43.2 Incisional hernia without obstruction or gangrene; R59.0 Localized enlarged lymph nodes; Z68.43 Body mass index [BMI] 50.0-59.9, adult
CPT/HCPCS: 97803; 99211

== ENCOUNTER → 2018-01-29 | Outpatient (CLI) | payer BC ==
[2018-01-29 14:33] VITALS: BMI 54.0
--- NOTE | 2018-01-29 14:42 | P.BASOAP ---
Subjective Progress Note Date: 01/29/18 Principal diagnosis: Morbid obesity Patient doing well since last visit. No further symptoms related to her hernia. Denies nausea or vomiting. No reflux. 16 pound weight loss since last visit. Her PET scan is scheduled for this coming Sunday. She has an appointment with [facility] oncology 1 week later. Objective - Vital Signs Vital signs: Intake & Output 01/28/18 01/29/18 01/29/18 18:59 06:59 18:59 Weight 149.549 kg - Exam Abdomen: Soft, nontender, nondistended Assessment/Plan (1) Morbid obesity Narrative/Plan: Continue dietary and exercise regimen. Continue antiacids. We'll check three- month labs in conjunction with her upcoming [facility] oncology visit. Await PET scan findings. Follow-up 1 month. Plan: Date: Initial Weight: 188.241 kg Initial BMI: Current Weight: 149.549 kg Current BMI: 54.0 Type of Surgery: Total Volume in Band: Previous Volume: Volume Removed: Volume Added: Band Size:
[2018-01-29 15:02] VITALS: BP 120/68; PULSE 69; TEMP 98.3
== END ==
LOC: BARWHC3 13:47
PROVIDERS: ATTEND Surgery
DX: E66.01 Morbid (severe) obesity due to excess calories (principal); Z68.43 Body mass index [BMI] 50.0-59.9, adult
CPT/HCPCS: 97803; 99211

== ENCOUNTER → 2018-05-14 | Outpatient (CLI) | payer BC ==
[2018-05-14 14:03] VITALS: PULSE 62; RESP 16; TEMP 98.2
--- NOTE | 2018-05-14 14:41 | P.BASOAP ---
Subjective Progress Note Date: 05/14/18 Principal diagnosis: Morbid obesity Patient returns for follow-up visit. Last seen in January of last year. Patient has had 2 PET scans and a CAT scan since that time. No evidence of recurrent malignancy seen. Patient has lost 27 pounds. Feels well. Occasional GERD symptoms which are controlled with Tums periodically. She is due for 6 month labs. Lately has had some return of bad habits with some junk food in small volumes. Still having occasional episodes of pain at her recurrent hernia site. Objective - Vital Signs Vital signs: Vital Signs Temp 98.2 F 05/14/18 13:59 Pulse 62 05/14/18 13:59 Resp 16 05/14/18 13:59 BP Pulse Ox - Exam Abdomen: Soft, nondistended, nontender, hernia reducible Assessment/Plan (1) Morbid obesity Narrative/Plan: Patient overall doing well. Continue dietary and exercise regimen. We'll check 6 month labs at this time. Recommend tertiary care hernia clinic evaluation. Patient already familiar with [facility] for her melanoma clinic. Patient will follow-up in 2 months. Plan: Date: 05/14/18 Initial Weight: 188.241 kg Initial BMI: Current Weight: Current BMI: Type of Surgery: Total Volume in Band: Previous Volume: Volume Removed: Volume Added: Band Size:
[2018-05-14 14:43] LABS: HCT 43.5 % (34.0-46.0); HGB 13.8 gm/dL (11.4-16.0); MCH 28.9 pg (25.0-35.0); MCHC 31.7 g/dL (31.0-37.0); Mean Platelet Volume 7.6; Platelet Count 202 k/uL (150-450); RBC 4.77 m/uL (3.80-5.40); RDW 13.7 % (11.5-15.5); WBC 6.1 k/uL (3.8-10.6)
[2018-05-14 19:38] LABS: Calcium 8.9 mg/dL (8.7-10.3); Potassium 4.4 mmol/L (3.5-5.5); Total Bilirubin 0.3 mg/dL (0.2-1.2)
[2018-05-14 21:21] LABS: Vitamin D 25 Hydroxy 21.8 ng/mL (30.0-100.0)
[2018-05-14 21:22] LABS: Folate, Serum 9.2 ng/mL
== END | disposition home or self-care (01) ==
LOC: BARWHC3 13:44
PROVIDERS: ATTEND Surgery
DX: E66.01 Morbid (severe) obesity due to excess calories (principal); K21.9 Gastro-esophageal reflux disease without esophagitis; K46.9 Unspecified abdominal hernia without obstruction or gangrene; E55.9 Vitamin D deficiency, unspecified; K90.89 Other intestinal malabsorption; Z98.84 Bariatric surgery status; Z85.9 Personal history of malignant neoplasm, unspecified
CPT/HCPCS: 36415; 80053; 82306; 82607; 82746; 83540; 84425; 85027; 99211

== ENCOUNTER → 2018-08-13 | Outpatient (CLI) | payer BC ==
--- NOTE | 2018-08-13 14:01 | P.BASOAP ---
Subjective Progress Note Date: 08/13/18 Principal diagnosis: Morbid obesity Patient returns today for ten-month bariatric follow-up visit. Doing well. Some increased heartburn since last visit. She started taking [id number] Prilosec. Symptoms are well controlled now. Denies dysphagia. No pain. 16 pound weight loss since last visit. Objective - Exam Abdomen: Soft, nontender, nondistended Assessment/Plan (1) Morbid obesity Narrative/Plan: Patient doing well at this time. Continue Prilosec for mild heartburn symptoms. Will provide prescription today. We'll have patient follow up in 2 months. We'll check one year labs at that time. Plan: Date: Initial Weight: 188.241 kg Initial BMI: Current Weight: Current BMI: Type of Surgery: Total Volume in Band: Previous Volume: Volume Removed: Volume Added: Band Size:
[2018-08-13 16:34] VITALS: BP 119/82; PULSE 81; TEMP 98.1; BMI 46.6
== END ==
LOC: BARWHC3 13:22
PROVIDERS: ATTEND Surgery
DX: E66.01 Morbid (severe) obesity due to excess calories (principal); R12 Heartburn; Z79.899 Other long term (current) drug therapy; Z68.42 Body mass index [BMI] 45.0-49.9, adult
CPT/HCPCS: 99211

== ENCOUNTER → 2018-11-26 | Outpatient (CLI) | payer BC ==
[2018-11-26 13:30] VITALS: BP 119/87; PULSE 101; RESP 16; TEMP 98.3; BMI 46.1
--- NOTE | 2018-11-26 17:22 | P.BASOAP ---
Subjective Progress Note Date: 11/26/18 Principal diagnosis: Morbid obesity Patient returns today for reevaluation. Last seen approximately 3 months ago. Patient has incisional hernia repair scheduled at [facility] in the near future. She has lost an additional 3 pounds. Annual labs reviewed. Objective - Vital Signs Vital signs: Vital Signs Temp 98.3 F 11/26/18 13:26 Pulse 101 H 11/26/18 13:26 Resp 16 11/26/18 13:26 BP 119/87 11/26/18 13:26 Pulse Ox Intake & Output 11/25/18 11/26/18 11/26/18 18:59 06:59 18:59 Weight 127.913 kg - Exam Abdomen: Soft, nontender, nondistended Assessment/Plan (1) Morbid obesity Narrative/Plan: Patient doing fairly well. Await upcoming incisional hernia repair. Follow-up 3-6 months. Plan: Date: 11/26/18 Initial Weight: 188.241 kg Initial BMI: 67.8 Current Weight: 127.913 kg Current BMI: 46.1 Type of Surgery: Vertical Sleeve Gastrectomy Total Volume in Band: Previous Volume: Volume Removed: Volume Added: Band Size:
== END ==
LOC: BARWHC3 12:51
PROVIDERS: ATTEND Surgery
DX: E66.01 Morbid (severe) obesity due to excess calories (principal); Z68.42 Body mass index [BMI] 45.0-49.9, adult
CPT/HCPCS: 99211

== ENCOUNTER → 2019-04-29 | Outpatient (CLI) | payer BC ==
[2019-04-29 13:15] VITALS: BP 112/78; PULSE 60; TEMP 98.6; BMI 45.7
--- NOTE | 2019-04-29 15:24 | P.BASOAP ---
Subjective Progress Note Date: 04/29/19 Principal diagnosis: Morbid obesity Patient here today for routine bariatric follow-up. Patient underwent repair of a symptomatic incisional hernia on 02/28. Apparently for about 6-8 weeks prior to that she was having symptoms of partial obstruction and was not eating much during that time. Doing much better since then. Weight today 279 which is down from 282 last visit. Taking omeprazole daily for mild heartburn although symptoms are well-controlled. States that after her hernia repair she did eat more and got into some bad habits once again. No pain at the hernia site. Objective - Vital Signs Vital signs: Vital Signs Temp 98.6 F 04/29/19 13:12 Pulse 60 04/29/19 13:12 Resp BP 112/78 04/29/19 13:12 Pulse Ox Intake & Output 04/28/19 04/29/19 04/29/19 18:59 06:59 18:59 Weight 126.552 kg - Exam Abdomen: Soft, nondistended, lower midline incision clean and dry, nontender Assessment/Plan (1) Morbid obesity Narrative/Plan: Patient doing very well after recent hernia repair. Continue dietary and exercise regimen. Monitor caloric intake. Follow-up 6 months. Plan: Date: 04/29/19 Initial Weight: 188.241 kg Initial BMI: 68.0 Current Weight: 126.552 kg Current BMI: 45.7 Type of Surgery: Total Volume in Band: Previous Volume: Volume Removed: Volume Added: Band Size:
== END | disposition home or self-care (01) ==
LOC: BARWHC3 12:54
PROVIDERS: ATTEND Surgery
DX: E66.01 Morbid (severe) obesity due to excess calories (principal); Z68.42 Body mass index [BMI] 45.0-49.9, adult
CPT/HCPCS: 99211

== ENCOUNTER 2022-06-13 17:35 | Emergency (ER) | payer BC ==
[2022-06-13 17:39] VITALS: BP 160/89; PULSE 98; RESP 20
[2022-06-13] MEDS ORDERED: CLINDAMYCIN 150 MG CAP PO STA (19:23)
--- NOTE | 2022-06-13 19:33 | ED ---
General Adult HPI - General Chief complaint: Skin/Abscess/Foreign Body Stated complaint: Rash on ABD area Time Seen by Provider: 06/13/22 18:59 Source: patient, RN notes reviewed Mode of arrival: ambulatory Limitations: no limitations - History of Present Illness Initial comments: Patient is a pleasant 41-year-old female presenting to the emergency department with concern for rash. Onset of symptoms was a few days ago. Patient states this is her lower abdomen. Patient states there is mild discomfort with touch only. Patient states it does feel a little bit warm. Patient does have history of similar symptoms previously however this is worse than that. Patient denies fevers however did have chills yesterday. - Related Data Home Medications Medication Instructions Recorded Confirmed Citalopram Hydrobromide [CeleXA] 20 mg PO HS 06/09/16 04/29/19 Calcium Citrate 250 mg PO HS 12/10/17 04/29/19 Pedi Multivit No.25/Folic Acid 1 tab PO HS 12/10/17 04/29/19 [Flintstones Multivit Chew Tab] Cholecalciferol (Vitamin D3) 10,000 unit PO DAILY 11/26/18 04/29/19 [Vitamin D3] Cyanocobalamin (Vitamin B-12) 1,000 mcg PO DAILY 11/26/18 04/29/19 [Vitamin B-12] Previous Rx's Medication Instructions Recorded Clindamycin [Cleocin] 2 tab PO Q8H #60 cap 06/13/22 Allergies Allergy/AdvReac Type Severity Reaction Status Date / Time fluoxetine [From Prozac] Allergy Rash/Hives Verified 06/13/22 17:39 Review of Systems ROS Statement: Those systems with pertinent positive or pertinent negative responses have been documented in the HPI. ROS Other: All systems not noted in ROS Statement are negative. Constitutional: Reports: as per HPI, chills. Denies: fever Eyes: Denies: eye pain ENT: Denies: ear pain Respiratory: Denies: cough Cardiovascular: Denies: palpitations Endocrine: Denies: fatigue Gastrointestinal: Reports: as per HPI. 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 Herzog-pt has pet scans q 3 months and scans have been clear, NIDDM type II, kidney stones found on pet scan, R leg cellulitis. PET scan showed B cervical lymph node possible involvement History of Any Multi-Drug Resistant Organisms: MRSA Date of last positivie culture/infection: 2007, 2010 MDRO Source:: hernia surgery, breast abscess Past Surgical History: Bariatric Surgery, Section, Hernia Repair Additional Past Surgical History / Comment(s): 10/19/17 lap gastric sleeve, umbilical hernia repair with mesh .,mesh later removed d/t infection and hernia repaired again., colonoscopy/egd. Uretha scope and lithotripsy 10/30/17. Past Anesthesia/Blood Transfusion Reactions: Motion Sickness, Postoperative Nausea & Vomiting (PONV) Past Psychological History: Depression Smoking Status: Never smoker Past Alcohol Use History: None Reported Past Drug Use History: None Reported - Past Family History Mother Family Medical History: No Reported History Additional Family Medical History / Comment(s): mother suffers from depression Father History Unknown: Yes Family Medical History: Myocardial Infarction ([place]) Additional Family Medical History / Comment(s): biological father had alcoholism and of a heart attack at age 61 General Exam Limitations: no limitations General appearance: alert, in no apparent distress Head exam: Present: atraumatic, normocephalic Eye exam: Present: normal appearance Respiratory exam: Present: normal lung sounds bilaterally Cardiovascular Exam: Present: regular rate, normal rhythm GI/Abdominal exam: Present: soft. Absent: tenderness Extremities exam: Present: normal inspection Neurological exam: Present: alert Psychiatric exam: Present: normal affect, normal mood Skin exam: Present: erythema (Patient does have area of erythema between the pubic region and umbilicus, light pink with minimal warmth. Approximate size 14 x 8 cm.) Course Vital Signs 06/13/22 17:37 Temperature 98.4 F Pulse Rate 98 Respiratory 20 Rate Blood Pressure 160/89 O2 Sat by Pulse 99 Oximetry Medical Decision Making - Medical Decision Making Was pt. sent in by a medical professional or institution (, PA, ORTHOPEDICS PEDIATRIC PHYSICIAN, urgent care, hospital, or penitentiary...) When possible be specific @ -No Did you speak to anyone other than the patient for history (EMS, parent, family, police, friend...)? What history was obtained from this source @ -No Did you review nursing and triage notes (agree or disagree)? Why? @ -I reviewed and agree with nursing and triage notes Were old charts reviewed (outside hosp., previous admission, EMS record, old EKG, old radiological studies, urgent care reports/EKG's, penitentiary records)? Report findings @ -No old charts were reviewed Differential Diagnosis (chest pain, altered mental status, abdominal pain women, abdominal pain men, vaginal bleeding, weakness, fever, dyspnea, syncope, headache, dizziness, GI bleed, back pain, seizure, CVA, palpatations, mental health)? @ -not applicable EKG interpreted by me (3pts min.). @ -As above X-rays interpreted by me (1pt min.). @ -None done CT interpreted by me (1pt min.). @ -None done U/S interpreted by me (1pt. min.). @ -None done What testing was considered but not performed or refused? (CT, X-rays, U/S, labs)? Why? @ -None What meds were considered but not given or refused? Why? @ -None Did you discuss the management of the patient with other professionals (professionals i.e. , PA, ORTHOPEDICS PEDIATRIC PHYSICIAN, lab, RT, psych nurse, 7th grade social studies teacher, ribbon cutter, teacher, president and chief commercial officer, residential case manager)? Give summary @ -No Was smoking cessation discussed for >3mins.? @ -No Was critical care preformed (if so, how long)? @ -No Were there social determinants of health that impacted care today? How? (Homelessness, low income, unemployed, alcoholism, drug addiction, transportation, low edu. Level, literacy, decrease access to med. care, shelter, rehab)? @ -No Was there de-escalation of care discussed even if they declined (Discuss DNR or withdrawal of care, Hospice)? DNR status @ -No What co-morbidities impacted this encounter? (DM, HTN, Smoking, COPD, CAD, Cancer, CVA, ARF, Chemo, Hep., AIDS, mental health diagnosis, sleep apnea, morbid obesity)? @ -None Was patient admitted / discharged? Hospital course, mention meds given and route , prescriptions, significant lab abnormalities, going to OR and other pertinent info. @ -Patient will be discharged with oral antibiotics. Patient is advised strongly to return for reevaluation possible IV antibiotics if symptoms worsen including discomfort size or warmth or fever. Undiagnosed new problem with uncertain prognosis? @ -No Drug Therapy requiring intensive monitoring for toxicity (Heparin, Nitro, Insulin, Cardizem)? @ -No Were any procedures done? @ -No Diagnosis/symptom? @ -Cellulitis Acute, or Chronic, or Acute on Chronic? @ -Acute Uncomplicated (without systemic symptoms) or Complicated (systemic symptoms)? @ -default Side effects of treatment? @ -No Exacerbation, Progression, or Severe Exacerbation? @ -No Poses a threat to life or bodily function? How? (Chest pain, [place], [place], pneumonia, PE, COPD, DKA, ARF, appy, cholecystitis, CVA, Diverticulitis, Homicidal, Suicidal, threat to staff... and all critical care pts) @ -No Disposition Clinical Impression: Cellulitis Disposition: HOME SELF-CARE Condition: Stable Instructions (If sedation given, give patient instructions): Cellulitis (ED) Additional Instructions: Prescription sent to pharmacy. Please do follow-up with primary care physician within the next 48 hours for recheck. Return for increased redness, pain, fevers, warmth, worsening symptoms or any other concerns. Prescriptions: Clindamycin [Cleocin] 2 tab PO Q8H #60 cap Is patient prescribed a controlled substance at d/c from ED?: No Referrals: Mike Kahn MD [Primary Care Provider] - 1-2 days Time of Disposition: 19:33
[2022-06-13 19:50] VITALS: TEMP 98.2
== END 2022-06-13 20:06 | disposition home or self-care (01) ==
LOC: EC 17:35
DX: L03.311 Cellulitis of abdominal wall (principal); E11.9 Type 2 diabetes mellitus without complications; F32.A Depression, unspecified; Z79.899 Other long term (current) drug therapy; Z88.8 Allergy status to other drugs, medicaments and biological substances
CPT/HCPCS: 99282

== ENCOUNTER 2023-02-13 16:45 | Emergency (ER) | payer BC ==
[2023-02-13 16:55] VITALS: TEMP 98.7
[2023-02-13] MEDS ORDERED: KETOROLAC 15 MG/ML 1 ML VIAL IM STA (17:42)
[2023-02-13] MEDS ORDERED: PROPOFOL 10 MG/ML 20 ML VIAL IV ONE ×2 (18:59→19:42)
[2023-02-13] MEDS ORDERED: SODIUM CHLORIDE 0.9% 500 ML 500 ML IV STA (18:59)
--- NOTE | 2023-02-13 19:08 | XR ---
EXAMINATION TYPE: XR shoulder limited RT DATE OF EXAM: 02/13/2023 6:40 PM CLINICAL INDICATION:Female, 42 years old with history of pain; COMPARISON: None TECHNIQUE: XR shoulder limited RT; shoulder was examined in frontal view. FINDINGS/IMPRESSION: Anterior-inferior dislocation of the right shoulder. No evidence of fracture.
--- NOTE | 2023-02-13 19:28 | XR ---
EXAMINATION TYPE: XR shoulder complete RT DATE OF EXAM: 02/13/2023 7:24 PM CLINICAL INDICATION:Female, 42 years old with history of pain; [facility] COMPARISON: Same day TECHNIQUE: XR shoulder complete RT; shoulder was examined in AP, internally rotated and scapular Y p rojections. FINDINGS/IMPRESSION: Persistent Anterior-inferior dislocation of the right shoulder. No evidence of fracture.
--- NOTE | 2023-02-13 20:09 | ED ---
General Adult HPI - General Chief complaint: Extremity Injury, Upper Stated complaint: Fall,R Shoulder Injury Time Seen by Provider: 02/13/23 16:52 Source: EMS Mode of arrival: EMS Limitations: no limitations - History of Present Illness Initial comments: 42-year-old female presenting to the ED with a chief complaint of right shoulder injury. Patient states she was in the kitchen cleaning dishes. States that her broom was in the way and she kicked it backwards. States that she stepped backwards and didn't note the broom was behind her and slipped on the bristles. States she attempted to catch herself with her right arm and states that when he hit the counter she heard a pop and now presents to the ED with right shoulder pain. States that she landed onto her left buttock/side. Is any injury of this. No head injury at this time. No other complaints. - Related Data Home Medications Medication Instructions Recorded Confirmed Citalopram Hydrobromide [CeleXA] 20 mg PO HS 06/09/16 04/29/19 Calcium Citrate 250 mg PO HS 12/10/17 04/29/19 Pedi Multivit No.25/Folic Acid 1 tab PO HS 12/10/17 04/29/19 [Flintstones Multivit Chew Tab] Cholecalciferol (Vitamin D3) 10,000 unit PO DAILY 11/26/18 04/29/19 [Vitamin D3] Cyanocobalamin (Vitamin B-12) 1,000 mcg PO DAILY 11/26/18 04/29/19 [Vitamin B-12] Previous Rx's Medication Instructions Recorded Clindamycin [Cleocin] 2 tab PO Q8H #60 cap 06/13/22 Allergies Allergy/AdvReac Type Severity Reaction Status Date / Time fluoxetine [From Prozac] Allergy Rash/Hives Verified 06/13/22 17:39 Review of Systems ROS Statement: Those systems with pertinent positive or pertinent negative responses have been documented in the HPI. ROS Other: All systems not noted in ROS Statement are negative. 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 Herzog- pt has pet scans q 3 months and scans have been clear, NIDDM type II, kidney stones found on pet scan, R leg cellulitis. PET scan showed B cervical lymph node possible involvement History of Any Multi-Drug Resistant Organisms: MRSA Date of last positivie culture/infection: 2007, 2010 MDRO Source:: hernia surgery, breast abscess Past Surgical History: Bariatric Surgery, Section, Hernia Repair Additional Past Surgical History / Comment(s): 10/19/17 lap gastric sleeve, umbilical hernia repair with mesh .,mesh later removed d/t infection and hernia repaired again., colonoscopy/egd. Uretha scope and lithotripsy 10/30/17. Past Anesthesia/Blood Transfusion Reactions: Motion Sickness, Postoperative Nausea & Vomiting (PONV) Past Psychological History: Depression Smoking Status: Never smoker Past Alcohol Use History: None Reported Past Drug Use History: None Reported - Past Family History Mother Family Medical History: No Reported History Additional Family Medical History / Comment(s): mother suffers from depression Father History Unknown: Yes Family Medical History: Myocardial Infarction ([place]) Additional Family Medical History / Comment(s): biological father had alcoholism and of a heart attack at age 61 General Exam Limitations: no limitations General appearance: alert, in no apparent distress Neck exam: Present: normal inspection Respiratory exam: Present: normal lung sounds bilaterally Cardiovascular Exam: Present: regular rate, normal rhythm GI/Abdominal exam: Present: soft Extremities exam: Present: other (Right Shoulder shows decreased range of motion in the right to pain. No obvious step-off or deformity however difficult to interpret secondary to patient's body habitus.) Neurological exam: Present: alert Skin exam: Present: warm, dry Course Vital Signs 02/13/23 02/13/23 02/13/23 16:47 19:28 19:45 Temperature 98.7 F Pulse Rate 68 71 76 Respiratory 18 18 20 Rate Blood Pressure 132/86 142/97 O2 Sat by Pulse 97 96 94 L Oximetry 02/13/23 02/13/23 02/13/23 19:50 19:55 20:10 Temperature Pulse Rate 80 71 80 Respiratory 18 20 18 Rate Blood Pressure 155/104 139/96 148/86 O2 Sat by Pulse 99 98 98 Oximetry 02/13/23 02/13/23 20:20 20:55 Temperature Pulse Rate 69 79 Respiratory 18 18 Rate Blood Pressure 161/86 156/90 O2 Sat by Pulse 99 97 Oximetry Procedures - Orthopedic Joint Reduction Joint #1 Side: right Joint Reduction Location: shoulder Analgesia: procedural sedation Shoulder Technique Used (if applicable): traction/counter-traction Post-Reduction Neuro Exam: intact Post-Reduction Vascular Exam: intact Post Reduction X-Ray Obtained: Yes Post Reduction X-Ray Results: reduced Splint Applied: Yes (R shoulder sling) Patient Tolerated Procedure: well, no complications Medical Decision Making - Medical Decision Making Was pt. sent in by a medical professional or institution (, PA, [facility], urgent care, hospital, or [facility]...) When possible be specific @ -No Did you speak to anyone other than the patient for history (EMS, parent, family, police, friend...)? What history was obtained from this source @ -No Did you review nursing and triage notes (agree or disagree)? Why? @ -I reviewed and agree with nursing and triage notes Were old charts reviewed (outside hosp., previous admission, EMS record, old EKG, old radiological studies, urgent care reports/EKG's, [facility] records)? Report findings @ -No old charts were reviewed Differential Diagnosis (chest pain, altered mental status, abdominal pain women, abdominal pain men, vaginal bleeding, weakness, fever, dyspnea, syncope, headache, dizziness, GI bleed, back pain, seizure, CVA, palpatations, mental health, musculoskeletal)? @ -Differential Musculoskeletal Muscular strain, contusion, ligament sprain, fracture, arthritis, septic arthritis, bursitis, cellulitis, muscle spasm, nerve compression, DVT, arterial occlusion, herpes zoster, electrolyte abnormality, tumor.... This is not meant to be in all inclusive list EKG interpreted by me (3pts min.). @ -As above X-rays interpreted by me (1pt min.). @ -X-ray of the right shoulder shows anterior dislocation. Post Reduction films show successful reduction of anterior dislocation. X-rays interpreted by me. CT interpreted by me (1pt min.). @ -None done U/S interpreted by me (1pt. min.). @ -None done What testing was considered but not performed or refused? (CT, X-rays, U/S, labs)? Why? @ -None What meds were considered but not given or refused? Why? @ -None Did you discuss the management of the patient with other professionals (professionals i.e. , PA, [facility], lab, RT, psych nurse, social media assistant, flood control engineer, teacher, legal officer, child support case officer)? Give summary @ -No Was smoking cessation discussed for >3mins.? @ -No Was critical care preformed (if so, how long)? @ -No Were there social determinants of health that impacted care today? How? (Homelessness, low income, unemployed, alcoholism, drug addiction, transportation, low edu. Level, literacy, decrease access to med. care, long term, rehab)? @ -No Was there de-escalation of care discussed even if they declined (Discuss DNR or withdrawal of care, Hospice)? DNR status @ -No What co-morbidities impacted this encounter? (DM, HTN, Smoking, COPD, CAD, Cancer, CVA, ARF, Chemo, Hep., AIDS, mental health diagnosis, sleep apnea, morbid obesity)? @ -Obesity Was patient admitted / discharged? Hospital course, mention meds given and route, prescriptions, significant lab abnormalities, going to OR and other pertinent info. @ -Discharge 42-year-old female presented to the ED with right shoulder injury status post mechanical fall. No other injuries at this time. Initial x-ray showed anterior dislocation of right shoulder. Reduction performed by me. Sedation performed by Dr. Adames. Tolerated procedure well without difficulties. Postreduction films show successful reduction. Patient observed in the ED approximately an hour after conscious sedation with no adverse events. Patient discharged home in stable condition. Right arm placed in a sling. Discussed return precautions patient verbalizes agreement. Undiagnosed new problem with uncertain prognosis? @ -No Drug Therapy requiring intensive monitoring for toxicity (Heparin, Nitro, Insulin, Cardizem)? @ -No Were any procedures done? @ -Yes, shoulder reduction Diagnosis/symptom? @ -Right shoulder dislocation Acute, or Chronic, or Acute on Chronic? @ -Acute Uncomplicated (without systemic symptoms) or Complicated (systemic symptoms)? @ -Uncomplicated Side effects of treatment? @ -No Exacerbation, Progression, or Severe Exacerbation? @ -No Poses a threat to life or bodily function? How? (Chest pain, [place], [place], pneumonia, PE, COPD, DKA, ARF, appy, cholecystitis, CVA, Diverticulitis, Homicidal, Suicidal, threat to staff... and all critical care pts) @ -No Disposition Clinical Impression: Shoulder dislocation Disposition: HOME SELF-CARE Condition: Good Instructions (If sedation given, give patient instructions): Shoulder Dislocation (ED) Additional Instructions: Please return to the Emergency Department if symptoms worsen or any other concerns. Is patient prescribed a controlled substance at d/c from ED?: No Referrals: Mike Kahn MD [Primary Care Provider] - 1-2 days Time of Disposition: 21:23
--- NOTE | 2023-02-13 20:37 | XR ---
EXAMINATION TYPE: XR shoulder limited RT DATE OF EXAM: 02/13/2023 7:59 PM CLINICAL INDICATION:Female, 42 years old with history of POST REDUCTION; [facility] COMPARISON: Same day TECHNIQUE: XR shoulder limited RT; shoulder was examined in AP, internally rotated and scapular Y pr ojections. FINDINGS/IMPRESSION: Reduction of prior right shoulder dislocation without evidence of fracture.
[2023-02-13 21:48] VITALS: BP 143/84; PULSE 83; RESP 20
== END 2023-02-13 21:46 | disposition home or self-care (01) ==
LOC: EC 16:45
DX: S43.014A Anterior dislocation of right humerus, initial encounter (principal); S43.034A Inferior dislocation of right humerus, initial encounter; E66.9 Obesity, unspecified; Z68.44 Body mass index [BMI] 60.0-69.9, adult; E11.9 Type 2 diabetes mellitus without complications; F32.A Depression, unspecified; Z88.8 Allergy status to other drugs, medicaments and biological substances; Z79.899 Other long term (current) drug therapy; W22.8XXA Striking against or struck by other objects, initial encounter
CPT/HCPCS: 73020; 73030; 99284; 96360; 96372; 99152; 23650; J1885; J2704

== ENCOUNTER → 2023-03-08 | Outpatient (CLI) | payer BC ==
--- NOTE | 2023-03-08 11:29 | CT ---
EXAMINATION TYPE: CT shoulder RT wo con DATE OF EXAM: 03/08/2023 COMPARISON: Right shoulder x-ray February 13, 2023 HISTORY: dislocation CT DLP: 1054.2 mGycm Automated exposure control for dose reduction was used. FINDINGS: Humeral head articulation with osseous glenoid appears satisfactory on today's CT. No acute fracture is seen. Moderate narrowing at the acromioclavicular joint is redemonstrated. Visualized ribs are int act. No large joint effusion is present. Muscle bulk is maintained. IMPRESSION: No glenohumeral joint dislocation currently.
== END | disposition home or self-care (01) ==
LOC: RADCTMAIN 10:33
PROVIDERS: ATTEND Orthopaedic Surgery
DX: S43.084A Other dislocation of right shoulder joint, initial encounter (principal)